=== PATIENT | male | born 1955 | race American Indian/Alaskan Native ===

== ENCOUNTER 2020-02-04 13:06 | Inpatient (IN) ==
[2020-02-04] MEDS ORDERED: IOPAMIDOL 100 ML BOTTLE IV ONE (13:07)
[2020-02-04] MEDS ORDERED: ASPIRIN 81 MG TAB.CHEW CHEWED ONE (13:14)
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
[2020-02-04 13:32] LABS: POC Creatinine 1.1 mg/dL (0.6-1.2)
[2020-02-04] MEDS ORDERED: DEXAMETHASONE 10 MG/ML VIAL IV ONE (13:38)
--- NOTE | 2020-02-04 14:36 | Cat Scan Report ---
CLINICAL INFORMATION: Shortness of breath COMPARISON: 07/24/2019 TECHNIQUE: ml of Isovue-370 were injected intravenously. Using SmartPrep to maximize pulmonary artery opacification, .625mm helical slices were obtained from the lung apices through the lung bases. Following reconstruction, 2.5 mm sagittal, coronal, and axial reformations were processed. The exam was reviewed at mediastinal, lung, and bone windows. The exam was performed using radiation dose optimization techniques including, but not limited to, automated exposure control, adjustment of the mA and/or kV according to patient size and use of iterative reconstruction technique. FINDINGS: Mediastinal windows show suboptimal contrast bolus within the pulmonary arteries no gross evidence of embolus. Thoracic aorta is normal in diameter with scattered atherosclerotic plaque. The heart is normal in size with moderately heavy fibrofatty calcific plaque in the coronary arteries. Mildly enlarged lymph nodes in the right hilum, subcarinal AP window and right lower paratracheal region are identical to the previous exam. The esophagus is grossly normal. Thyroid is unremarkable. Pulmonary parenchymal windows show large patchy groundglass infiltrates generally in a peribronchovascular distribution throughout both upper, right middle and lower lobes. There are no effusions. Bones and soft tissues the chest wall are normal. Superior abdominal images show a 2 cm simple cyst left hepatic lobe. No significant abnormality in the upper abdomen IMPRESSION: 1. Large patchy groundglass infiltrates in a peribronchovascular distribution throughout both upper, right middle and lower lobes. These likely represent infection or, less likely, aspiration 2. No evidence of pulmonary embolus. Interpreted and Authenticated by: Pato Santiago 02/04/20
[2020-02-04 14:41] LABS: ABG Methemoglobin 0.3 % (0.4-1.5); Total Hemoglobin 13.6 gm/Dl (13.5-16.5); VBG Base Excess -1 (-2-3); VBG HCO3 23.2 mmol/L (24.0-28.0); VBG Oxygen Saturation 89.2 % (40.0-70.0); VBG PH 7.42 U (7.32-7.42); VBG PO2 70.6 mmHg (25.0-40.0); VBG Total CO2 24.4 mmol/L (25.0-29.0)
[2020-02-04 14:43] LABS: Basophils # (Auto) 0.01 K/mcL (0.00-0.20); Basophils % (Auto) 0.2 % (0.0-2.0); Eosinophils # (Auto) 0 K/mcL (0.00-0.70); Eosinophils % (Auto) 0 % (0.0-7.0); Hematocrit 43.2 % (41.0-55.0); Hemoglobin 14.7 g/dL (13.5-16.5); Lymphocytes # (Auto) 0.78 K/mcL (1.50-4.80); Lymphocytes % (Auto) 15.6 % (15.0-49.0); Mean Cell Volume 81.8 fL (80.0-100.0); Mean Platelet Volume 9.3 fL (7.4-10.4); Monocytes # (Auto) 0.28 K/mcL (0.10-0.90); Monocytes % (Auto) 5.6 % (1.0-12.0); Neutrophils % (Auto) 78.6 % (38.0-78.0); Platelet Count 222 K/mcL (140-440); RBC 5.28 M/mcL (4.50-5.90); Red Cell Distribution Width 13.5 % (11.5-14.5)
[2020-02-04 15:07] LABS: ALT/SGPT 24 U/L (<40); AST/SGOT 37 U/L (<40); Albumin/Globulin Ratio 1.2 (1.0-2.3); Alkaline Phosphatase 59 U/L (39-117); Bilirubin,Total 0.6 mg/dL (0.1-1.0); Blood Urea Nitrogen 11 mg/dL (8-23); Calcium 8.4 mg/dL (8.6-10.4); Carbon Dioxide 22 mmol/L (22-30); Chloride 94 mmol/L (96-108); Globulin 3.3 gm/dL (2.2-3.7); Glomerular Filtration Rate 63; Glucose 108 mg/dL (70-105)
[2020-02-04] MEDS ORDERED: ACETAMINOPHEN 325 MG TABLET PO ONE (15:56)
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
[2020-02-04] MEDS ORDERED: REMDESIVIR 200 MG in 0.9 % SODIUM CHLORIDE 250 ML IV ONE (17:24)
[2020-02-04 17:28] LABS: Creatine Kinase 290 U/L (24-195)
[2020-02-04 17:41] LABS: Ferritin 486.3 ng/mL (30.0-400.0)
[2020-02-04 17:57] LABS: Band Neutrophils % 4 % (0-10); Lymphocytes % 16 % (15-49); Monocytes % (Manual) 2 % (1-12); Platelet Estimate NORMAL (Normal); RBC Morphology NORMAL (Normal); Segmented Neutrophils % 78 % (38-78)
[2020-02-04] MEDS ORDERED: DEXTROSE 50% 50 ML VIAL IV PRN (20:17)
[2020-02-04] MEDS ORDERED: ACETAMINOPHEN 325 MG TABLET PO PRN (20:17)
[2020-02-04] MEDS ORDERED: POTASSIUM CHLORIDE 20 MEQ TABLET PO PRN ×2 (20:17)
[2020-02-04] MEDS ORDERED: HYDROcodone/APAP 5/325MG TABLET PO PRN (20:17)
[2020-02-04] MEDS ORDERED: ONDANSETRON 4 MG/2 ML VIAL IV PRN (20:17)
[2020-02-04] MEDS ORDERED: SENNOSIDES 1 TABLET PO PRN (20:17)
[2020-02-04] MEDS ORDERED: POTASSIUM CHLORIDE 40 MEQ in DEXTROSE 5% IN WATER 500 ML IV PRN (20:17)
[2020-02-04] MEDS ORDERED: MAGNESIUM SULFATE 2 GM/50 ML BAG IV PRN (20:17)
[2020-02-04] MEDS ORDERED: DEXTROSE 31 GM ORAL.SUSP PO PRN (20:17)
[2020-02-04] MEDS ORDERED: cefTRIAXone 2 GM VIAL ONE (21:50)
[2020-02-04] MEDS: AZITHROMYCIN 500 MG in DEXTROSE 5% IN WATER 250 ML IV SCH (22:18)
[2020-02-04] MEDS: INSULIN LISPRO 1 UNIT/0.01 ML UNIT SQ SCH (22:19)
[2020-02-04] MEDS: ZINC SULFATE 50 MG CAPSULE PO SCH (22:20)
[2020-02-04] MEDS: DOCUSATE SODIUM 100 MG CAPSULE PO SCH (22:20)
[2020-02-04] MEDS: TAMSULOSIN 0.4 MG CAPSULE PO SCH (22:20)
[2020-02-04] MEDS: OMEPRAZOLE 20 MG CAPSULE PO SCH (22:20)
[2020-02-04] MEDS: cefTRIAXone 2 GM in DEXTROSE 5% IN WATER 50 ML IV SCH (22:21)
[2020-02-04] MEDS: 0.9 % SODIUM CHLORIDE 10 ML SYRINGE IV SCH (22:21)
[2020-02-05] MEDS: 0.9 % SODIUM CHLORIDE 10 ML SYRINGE IV SCH ×3 (05:26→20:03)
[2020-02-05 06:30] LABS: Basophils # (Auto) 0 K/mcL (0.00-0.20); Basophils % (Auto) 0 % (0.0-2.0); Eosinophils # (Auto) 0 K/mcL (0.00-0.70); Eosinophils % (Auto) 0 % (0.0-7.0); Hematocrit 40.8 % (41.0-55.0); Hemoglobin 13.9 g/dL (13.5-16.5); Lymphocytes # (Auto) 0.39 K/mcL (1.50-4.80); Lymphocytes % (Auto) 14.5 % (15.0-49.0); Mean Cell Volume 81.3 fL (80.0-100.0); Mean Corpuscular HGB Conc 34.1 g/dL (31.0-36.0); Mean Platelet Volume 9.2 fL (7.4-10.4); Monocytes # (Auto) 0.19 K/mcL (0.10-0.90); Monocytes % (Auto) 7.1 % (1.0-12.0); Neutrophils % (Auto) 78.4 % (38.0-78.0); Platelet Count 225 K/mcL (140-440); RBC 5.02 M/mcL (4.50-5.90); Red Cell Distribution Width 13.2 % (11.5-14.5); WBC 2.7 K/mcL (4.5-11.0)
[2020-02-05 07:16] LABS: ALT/SGPT 22 U/L (<40); AST/SGOT 32 U/L (<40); Albumin 3.6 gm/dL (3.2-5.2); Albumin/Globulin Ratio 1.1 (1.0-2.3); Alkaline Phosphatase 58 U/L (39-117); Bilirubin,Direct < 0.2 mg/dL (<0.3); Bilirubin,Total 0.5 mg/dL (0.1-1.0); Blood Urea Nitrogen 11 mg/dL (8-23); Calcium 8.5 mg/dL (8.6-10.4); Carbon Dioxide 20 mmol/L (22-30); Chloride 100 mmol/L (96-108); Globulin 3.4 gm/dL (2.2-3.7); Glomerular Filtration Rate 90; Glucose 151 mg/dL (70-105); Lactate Dehydrogenase 230 U/L (135-225); Phosphorous 2.6 mg/dL (2.5-4.5); Triglycerides 54 mg/dL (<150); Uric Acid 5.7 mg/dL (2.5-8.0)
[2020-02-05 07:20] LABS: Estimated Average Glucose(eAG) 131 mg/dL; Hemoglobin A1C 6.2 % Hgb (4.0-6.0)
--- NOTE | 2020-02-05 07:20 | Internal Med Progress Note ---
SUBJECTIVE Subjective Patient information: Note initiated : 02/05/20 at 7:16 am Service Date, if different from initiated Date: [] Patient: Hakeem Smart 64 y/o M admitted on 02/04/20 for shortness of breath. Chief Complaint: [] Interval history: History of present illness: Mr. Smart is a 64 year old M Presents to the ED feeling sick for 1 week with fever chills body aches. In about 3 days ago start developing shortness of breath which is continue to worsen. His tested positive yesterday because she had similar symptoms so he went to his PCP tested in the office today which showed positive for Covid. He is on 2 L of oxygen chronically. He got pneumonia beginning of the year and has been on it since. Follows Dr. Benítez for interstitial lung disease as well as bronchiectasis In the ED he required 3 L of oxygen. He has pleuritic chest pain. He has occasional productive cough which is mostly chronic CTA was done which showed no PE but did show bilateral groundglass infiltrates. 02/04 Poor sleep last night. Has occasional cough. Has shortness of breath, his chest is less tight. 3 L of oxygen Review of Systems: denies headache/fever/chills/nausea/vomiting/chest or abdominal pain//diarrhea. Otherwise see above. Constitutional Vitals: Vital Signs Temp Pulse Resp BP Pulse Ox 97.5 F 72 20 130/86 93 02/05/20 04:00 02/05/20 04:56 02/05/20 04:00 02/05/20 04:56 02/05/20 04:56 Period Temp Pulse Resp BP Sys/Estes Pulse Ox Last 24 Hr 97.0 F-101.1 F 67-111 14-32 108-158/63-102 89-97 Intake and Output 02/04/20 02/05/20 02/05/20 21:59 05:59 13:59 Intake Total 250 650 Output Total 600 Balance 250 50 Weight 118.115 kg Intake & Output: Intake & Output 02/04/20 02/05/20 02/05/20 21:59 05:59 13:59 Intake Total 250 650 Output Total 600 Balance 250 50 Weight 118.115 kg Intake: IV 250 250 Zithromax 500 mg In Dextrose 5% 250 in Water 250 ml @ 250 mls/hr IV Q24H LUIS MIGUEL Rx#:[id number] Veklury 200 mg In Sodium 250 Chloride 0.9% 250 ml @ 500 mls/ hr IV ONCE ONE Rx#:[id number] Oral 400 Output: Void Amount 600 Other: Urine Appearance Clear Urine Color Bright Yellow # Bowel Movements 0 Exam: General: Alert, Awake, No acute Distress Eyes/N/T: EOMI, Head/Neck: neck supple, CV: RRR, No murmurs, Pulm: diminished b/l & fines rales, no wheezing Abd: soft, nontender, +BS x4 Ext: no clubbing/cyanosis/edema Neuro: Alert, no focal deficits, moves all extremities, Skin: warm/dry OBJ DATA Labs CBC & Chem 7: 02/05/20 05:03 02/05/20 05:03 Labs: Abnormal Lab Results 02/05/20 02/04/20 02/04/20 05:03 14:14 13:20 WBC 2.7 L Hct 40.8 L Neut % (Auto) 78.4 H Lymph % (Auto) 14.5 L Lymph # (Auto) 0.39 L ABG Methemoglobin 0.3 L VBG pCO2 37.0 L VBG pO2 70.6 H VBG HCO3 23.2 L VBG Total CO2 24.4 L VBG O2 Saturation 89.2 H VBG Lactic Acid Carboxyhemoglobin 5.7 H Sodium Chloride Glucose Calcium Ferritin Total Creatine Kinase 290 H C-Reactive Protein 02/04/20 02/04/20 02/04/20 13:20 13:20 13:20 WBC Hct Neut % (Auto) Lymph % (Auto) Lymph # (Auto) ABG Methemoglobin VBG pCO2 VBG pO2 VBG HCO3 VBG Total CO2 VBG O2 Saturation VBG Lactic Acid 2.8 H Carboxyhemoglobin Sodium 131 L Chloride 94 L Glucose 108 H Calcium 8.4 L Ferritin 486.3 H Total Creatine Kinase C-Reactive Protein 8.90 H 02/04/20 13:20 WBC Hct Neut % (Auto) 78.6 H Lymph % (Auto) Lymph # (Auto) 0.78 L ABG Methemoglobin VBG pCO2 VBG pO2 VBG HCO3 VBG Total CO2 VBG O2 Saturation VBG Lactic Acid Carboxyhemoglobin Sodium Chloride Glucose Calcium Ferritin Total Creatine Kinase C-Reactive Protein Meds: Medications Acetaminophen (Tylenol) 650 mg PO Q6HP PRN PRN Reason: PAIN/FEVER > 101 Hydrocodone Bitart/Acetaminophen (Wiley 5/325mg) 1 tab PO Q4HP PRN PRN Reason: PAIN LEVEL 3-6 Albuterol/Ipratropium (Duoneb) 3 ml NEB Q4HP PRN PRN Reason: Shortness Of Breath Dexamethasone (Decadron) 6 mg PO DAILY LUIS MIGUEL Dextrose (Dextrose 50%) 0 ml IV UD PRN PRN Reason: Hypoglycemia Diagnostic Test (Pha) (Accu-Chek) 1 each FS ACHS [facility] Last Admin: 02/04/20 22:19 Dose: 1 each Documented by: Docusate Sodium (Colace) 100 mg PO BID [facility] Last Admin: 02/04/20 22:20 Dose: 100 mg Documented by: Glucose (Insta-Glucose) 15 gm PO PRN PRN PRN Reason: Hypoglycemia Potassium Chloride 40 meq/ (Dextrose) 520 mls @ 130 mls/hr IV UD PRN PRN Reason: Potassium < 3 Magnesium Sulfate (Magnesium Sulfate) 2 gm in 50 mls @ 50 mls/hr IV UD PRN PRN Reason: Magnesium </= 1.6 Ceftriaxone Sodium 2 gm/ (Dextrose) 50 mls @ 100 mls/hr IV Q24H [facility]; Protocol Last Admin: 02/04/20 22:21 Dose: Not Given Documented by: Azithromycin 500 mg/ Dextrose 250 mls @ 250 mls/hr IV Q24H [facility]; Protocol Stop: 02/06/20 21:16 Last Infusion: 02/04/20 23:20 Dose: Infused Documented by: REMDESIVIR 100 mg/ Sodium (Chloride) 250 mls @ 500 mls/hr IV Q24H [facility] Stop: 02/08/20 14:29 Insulin Human Lispro (Humalog) 0 unit SQ [facility]; Protocol Last Admin: 02/04/20 22:19 Dose: 4 units Documented by: Omeprazole (Prilosec) 20 mg PO HS [facility] Last Admin: 02/04/20 22:20 Dose: 20 mg Documented by: Ondansetron HCl (Zofran) 4 mg IV Q4HP PRN PRN Reason: Nausea And Vomiting Polyethylene Glycol (Miralax) 17 gm PO DAILYP PRN PRN Reason: Constipation Potassium Chloride (Kdur) 40 meq PO UD PRN PRN Reason: Potssium is 3-3.5 Potassium Chloride (Kdur) 40 meq PO UD PRN PRN Reason: Potassium < 3 Rivaroxaban (Xarelto) 10 mg PO QDAY [facility] Senna (Senokot) 2 tab PO DAILYP PRN PRN Reason: Constipation Sodium Chloride (Saline Flush) 10 ml IV Q8 [facility] Last Admin: 02/05/20 05:26 Dose: 10 ml Documented by: Tamsulosin HCl (Flomax) 0.4 mg PO BID [facility] Last Admin: 02/04/20 22:20 Dose: 0.4 mg Documented by: Zinc Sulfate (Zinc) 50 mg PO DAILY [facility] Last Admin: 02/04/20 22:20 Dose: 50 mg Documented by: ABG Interpretation ABG results: 02/04/20 14:14 ABG Methemoglobin 0.3 L VBG pH 7.42 VBG pCO2 37.0 L VBG pO2 70.6 H VBG HCO3 23.2 L VBG Total CO2 24.4 L VBG O2 Saturation 89.2 H VBG Base Excess -1 A/P Narrative A/P Narrative: A: *COVID PNA superimposed on underlying ILD: -CTA no PE but b/l groundglass infiltrates -RVP/Myco/Strep neg *Acute on chronic hypoxic Respiratory failure (2L@home): -on 3L NC *Lactic acidosis: 2/2 hypoxia *ILD: Follows with Dr. Benítez *COPD/bronchiectasis (on 2L@home): Follows with Dr. Benítez *DAMARIS on CPAP: *DM: A1c 6.2 *h/o diastolic CHF: *Obesity: *Rheumatoid arthritis/fibromyalgia: Follows with Dr. Carlos *h/o DVT/PE: [place] *Hyponatremia: P: -Dexa/Remdesivir -empiric abx given his significant comorbidities and being on immunosuppressant -pending SC -IS/Acapella, -O2 support -cpap -Basal and SSI -hold Tofacitinib until infection resolved -pt/ot -ppx:Xaralto/home PPI Time Spent With Patient Time: Total time spent is greater than 50% in coordination of care (as documented) at patient's floor/unit and/or counseling patient:
[2020-02-05] MEDS: INSULIN LISPRO 1 UNIT/0.01 ML UNIT SQ SCH ×4 (07:58→20:23)
[2020-02-05] MEDS: DEXAMETHASONE 4 MG TABLET PO SCH (08:21)
[2020-02-05] MEDS: cefTRIAXone 2 GM in DEXTROSE 5% IN WATER 50 ML IV SCH (08:21)
[2020-02-05] MEDS: RIVAROXABAN 20 MG TABLET PO SCH (08:21)
[2020-02-05] MEDS: SODIUM CHLORIDE 1 GM TABLET PO SCH ×3 (08:21→20:23)
[2020-02-05] MEDS: DOCUSATE SODIUM 100 MG CAPSULE PO SCH ×2 (08:21→20:23)
[2020-02-05] MEDS: ZINC SULFATE 50 MG CAPSULE PO SCH (08:21)
[2020-02-05] MEDS: TAMSULOSIN 0.4 MG CAPSULE PO SCH ×2 (08:21→20:23)
[2020-02-05] MEDS ORDERED: FUROSEMIDE 20 MG/2 ML VIAL IV ONE (08:43)
[2020-02-05] MEDS: AZITHROMYCIN 500 MG in DEXTROSE 5% IN WATER 250 ML IV SCH (09:09)
[2020-02-05] MEDS: IPRATROPIUM/ALBUTEROL 3 ML AMPUL.NEB NEB PRN (09:26)
[2020-02-05 10:01] LABS: INR 1.1 (0.9-1.1); Prothrombin Time 14.2 sec (11.9-14.5)
[2020-02-05] MEDS: REMDESIVIR 100 MG in 0.9 % SODIUM CHLORIDE 250 ML IV SCH (13:40)
[2020-02-05] MEDS: POLYETHYLENE GLYCOL 3350 17 GM PACKET PO PRN (17:21)
[2020-02-05] MEDS: MELATONIN 3 MG TABLET PO SCH (20:23)
[2020-02-05] MEDS: OMEPRAZOLE 20 MG CAPSULE PO SCH (20:23)
[2020-02-05] MEDS: diphenhydrAMINE 25 MG CAPSULE PO PRN (20:23)
[2020-02-06] MEDS: 0.9 % SODIUM CHLORIDE 10 ML SYRINGE IV SCH ×3 (05:15→20:56)
[2020-02-06 06:37] LABS: Basophils # (Auto) 0.01 K/mcL (0.00-0.20); Basophils % (Auto) 0.1 % (0.0-2.0); Eosinophils # (Auto) 0 K/mcL (0.00-0.70); Eosinophils % (Auto) 0 % (0.0-7.0); Hematocrit 42.9 % (41.0-55.0); Hemoglobin 14.4 g/dL (13.5-16.5); Lymphocytes # (Auto) 0.53 K/mcL (1.50-4.80); Lymphocytes % (Auto) 5.4 % (15.0-49.0); Mean Cell Volume 82.8 fL (80.0-100.0); Mean Corpuscular HGB Conc 33.6 g/dL (31.0-36.0); Mean Platelet Volume 9.1 fL (7.4-10.4); Monocytes # (Auto) 0.55 K/mcL (0.10-0.90); Monocytes % (Auto) 5.6 % (1.0-12.0); Neutrophils % (Auto) 88.9 % (38.0-78.0); Platelet Count 275 K/mcL (140-440); RBC 5.18 M/mcL (4.50-5.90); Red Cell Distribution Width 13.4 % (11.5-14.5); WBC 9.8 K/mcL (4.5-11.0)
[2020-02-06 07:21] LABS: ALT/SGPT 24 U/L (<40); AST/SGOT 33 U/L (<40); Albumin 3.5 gm/dL (3.2-5.2); Albumin/Globulin Ratio 1.1 (1.0-2.3); Alkaline Phosphatase 53 U/L (39-117); Bilirubin,Direct < 0.2 mg/dL (<0.3); Bilirubin,Total 0.4 mg/dL (0.1-1.0); Blood Urea Nitrogen 13 mg/dL (8-23); Calcium 8.4 mg/dL (8.6-10.4); Carbon Dioxide 23 mmol/L (22-30); Chloride 102 mmol/L (96-108); Globulin 3.3 gm/dL (2.2-3.7); Glomerular Filtration Rate 94; Glucose 130 mg/dL (70-105); Lactate Dehydrogenase 230 U/L (135-225); Phosphorous 3.2 mg/dL (2.5-4.5); Triglycerides 52 mg/dL (<150); Uric Acid 5.4 mg/dL (2.5-8.0)
--- NOTE | 2020-02-06 08:10 | Internal Med Progress Note ---
SUBJECTIVE Subjective Patient information: Note initiated : 02/06/20 at 8:07 am Service Date, if different from initiated Date: [] Patient: Hakeem Smart 64 y/o M admitted on 02/04/20 for shortness of breath. Chief Complaint: [] Interval history: History of present illness: Mr. Smart is a 64 year old M Presents to the ED feeling sick for 1 week with fever chills body aches. In about 3 days ago start developing shortness of breath which is continue to worsen. His tested positive yesterday because she had similar symptoms so he went to his PCP tested in the office today which showed positive for Covid. He is on 2 L of oxygen chronically. He got pneumonia beginning of the year and has been on it since. Follows Dr. Benítez for interstitial lung disease as well as bronchiectasis In the ED he required 3 L of oxygen. He has pleuritic chest pain. He has occasional productive cough which is mostly chronic CTA was done which showed no PE but did show bilateral groundglass infiltrates. 02/04 Poor sleep last night. Has occasional cough. Has shortness of breath, his chest is less tight. 3 L of oxygen 02/05 Patient quite labored when he gets up to the bathroom and even when he was eating. Oxygen at 3 L on his sitting in chair resting but needs increased when he exerts himself. Minimal cough. Shortness of breath wax and wanes. Review of Systems: denies headache/fever/chills/nausea/vomiting/chest or abdominal pain//diarrhea. Otherwise see above. Constitutional Vitals: Vital Signs Temp Pulse Resp BP Pulse Ox 96.6 F L 75 20 134/96 92 02/06/20 03:55 02/06/20 03:55 02/06/20 03:55 02/06/20 03:55 02/06/20 03:55 Period Temp Pulse Resp BP Sys/Estes Pulse Ox Last 24 Hr 96.6 F-97.9 F 68-76 16-24 134-144/85-96 92-97 Intake and Output 02/05/20 02/06/20 02/06/20 21:59 05:59 13:59 Intake Total 970 800 Output Total 650 950 Balance 320 -150 Weight 120.066 kg Intake & Output: Intake & Output 11/02/06/20 02/06/20 21:59 05:59 13:59 Intake Total 970 800 Output Total 650 950 Balance 320 -150 Weight 120.066 kg Intake: IV 250 Veklury 100 mg In Sodium 250 Chloride 0.9% 250 ml @ 500 mls/ hr IV Q24H [facility] Rx#:[id number] Oral 720 800 Output: Void Amount 650 950 Other: Meal Dinner Percent of Meal Consumed 100% Feeding Ability Independent Urine Appearance Clear Clear Urine Color Bright Yellow Bright Yellow Stool Size Small Stool Consistency Soft Exam: General: Alert, Awake, No acute Distress Eyes/N/T: EOMI, Head/Neck: neck supple, CV: RRR, No murmurs, Pulm: diminished b/l & fines rales, no wheezing Abd: soft, nontender, +BS x4 Ext: no clubbing/cyanosis, mild b/l LE edema Neuro: Alert, no focal deficits, moves all extremities, Skin: warm/dry OBJ DATA Labs CBC & Chem 7: 02/06/20 05:18 02/06/20 05:18 Labs: Abnormal Lab Results 02/06/20 02/06/20 02/06/20 05:18 05:18 05:18 WBC Hct Neut % (Auto) Lymph % (Auto) Lymph # (Auto) Absolute Neutrophils ABG Methemoglobin VBG pCO2 VBG pO2 VBG HCO3 VBG Total CO2 VBG O2 Saturation VBG Lactic Acid Carboxyhemoglobin Sodium Chloride Carbon Dioxide Glucose 130 H Hemoglobin A1c Calcium 8.4 L Ferritin 648.4 H Lactate Dehydrogenase 230 H Total Creatine Kinase 468 H C-Reactive Protein 3.40 H 02/06/20 02/05/20 02/05/20 05:18 05:03 05:03 WBC 2.7 L Hct 40.8 L Neut % (Auto) 88.9 H 78.4 H Lymph % (Auto) 5.4 L 14.5 L Lymph # (Auto) 0.53 L 0.39 L Absolute Neutrophils 8.73 H ABG Methemoglobin VBG pCO2 VBG pO2 VBG HCO3 VBG Total CO2 VBG O2 Saturation VBG Lactic Acid Carboxyhemoglobin Sodium 132 L Chloride Carbon Dioxide 20 L Glucose 151 H Hemoglobin A1c 6.2 H Calcium 8.5 L Ferritin Lactate Dehydrogenase 230 H Total Creatine Kinase C-Reactive Protein 02/04/20 02/04/20 02/04/20 14:14 13:20 13:20 WBC Hct Neut % (Auto) Lymph % (Auto) Lymph # (Auto) Absolute Neutrophils ABG Methemoglobin 0.3 L VBG pCO2 37.0 L VBG pO2 70.6 H VBG HCO3 23.2 L VBG Total CO2 24.4 L VBG O2 Saturation 89.2 H VBG Lactic Acid Carboxyhemoglobin 5.7 H Sodium Chloride Carbon Dioxide Glucose Hemoglobin A1c Calcium Ferritin 486.3 H Lactate Dehydrogenase Total Creatine Kinase 290 H C-Reactive Protein 8.90 H 02/04/20 02/04/20 02/04/20 13:20 13:20 13:20 WBC Hct Neut % (Auto) 78.6 H Lymph % (Auto) Lymph # (Auto) 0.78 L Absolute Neutrophils ABG Methemoglobin VBG pCO2 VBG pO2 VBG HCO3 VBG Total CO2 VBG O2 Saturation VBG Lactic Acid 2.8 H Carboxyhemoglobin Sodium 131 L Chloride 94 L Carbon Dioxide Glucose 108 H Hemoglobin A1c Calcium 8.4 L Ferritin Lactate Dehydrogenase Total Creatine Kinase C-Reactive Protein Meds: Medications Acetaminophen (Tylenol) 650 mg PO Q6HP PRN PRN Reason: PAIN/FEVER > 101 Hydrocodone Bitart/Acetaminophen ([place] 5/325mg) 1 tab PO Q4HP PRN PRN Reason: PAIN LEVEL 3-6 Albuterol/Ipratropium (Duoneb) 3 ml NEB Q4HP PRN PRN Reason: Shortness Of Breath Last Admin: 02/05/20 09:26 Dose: 3 ml Documented by: Dexamethasone (Decadron) 6 mg PO DAILY [facility] Last Admin: 02/05/20 08:21 Dose: 6 mg Documented by: Dextrose (Dextrose 50%) 0 ml IV UD PRN PRN Reason: Hypoglycemia Diagnostic Test (Pha) (Accu-Chek) 1 each FS ACHS [facility] Last Admin: 02/05/20 20:03 Dose: 1 each Documented by: Diphenhydramine HCl (Benadryl) 25 mg PO HSP PRN PRN Reason: Insomnia Last Admin: 02/05/20 20:23 Dose: 25 mg Documented by: Docusate Sodium (Colace) 100 mg PO BID [facility] Last Admin: 02/05/20 20:23 Dose: 100 mg Documented by: Glucose (Insta-Glucose) 15 gm PO PRN PRN PRN Reason: Hypoglycemia Potassium Chloride 40 meq/ (Dextrose) 520 mls @ 130 mls/hr IV UD PRN PRN Reason: Potassium < 3 Magnesium Sulfate (Magnesium Sulfate) 2 gm in 50 mls @ 50 mls/hr IV UD PRN PRN Reason: Magnesium </= 1.6 Ceftriaxone Sodium 2 gm/ (Dextrose) 50 mls @ 100 mls/hr IV Q24H [facility]; Protocol Last Infusion: 02/05/20 09:09 Dose: Infused Documented by: Azithromycin 500 mg/ Dextrose 250 mls @ 250 mls/hr IV Q24H [facility]; Protocol Stop: 02/06/20 21:16 Last Infusion: 02/05/20 10:22 Dose: Infused Documented by: REMDESIVIR 100 mg/ Sodium (Chloride) 250 mls @ 500 mls/hr IV Q24H [facility] Stop: 02/08/20 14:29 Last Infusion: 02/05/20 14:10 Dose: Infused Documented by: Insulin Human Lispro (Humalog) 0 unit SQ ACHS [facility]; Protocol Last Admin: 02/05/20 20:23 Dose: 6 units Documented by: Melatonin (Melatonin 3mg Tablet) 3 mg PO QHS [facility] Last Admin: 02/05/20 20:23 Dose: 3 mg Documented by: Omeprazole (Prilosec) 20 mg PO HS [facility] Last Admin: 02/05/20 20:23 Dose: 20 mg Documented by: Ondansetron HCl (Zofran) 4 mg IV Q4HP PRN PRN Reason: Nausea And Vomiting Pneumococcal Polyvalent Vaccine (Pneumovax 23) 0.5 ml IM .ONCE ONE Stop: 02/06/20 10:01 Polyethylene Glycol (Miralax) 17 gm PO DAILYP PRN PRN Reason: Constipation Last Admin: 02/05/20 17:21 Dose: 17 gm Documented by: Potassium Chloride (Kdur) 40 meq PO UD PRN PRN Reason: Potssium is 3-3.5 Potassium Chloride (Kdur) 40 meq PO UD PRN PRN Reason: Potassium < 3 Rivaroxaban (Xarelto) 10 mg PO QDAY [facility] Last Admin: 02/05/20 08:21 Dose: 10 mg Documented by: Senna (Senokot) 2 tab PO DAILYP PRN PRN Reason: Constipation Sodium Chloride (Saline Flush) 10 ml IV Q8 [facility] Last Admin: 02/06/20 05:15 Dose: 10 ml Documented by: Tamsulosin HCl (Flomax) 0.4 mg PO BID [facility] Last Admin: 02/05/20 20:23 Dose: 0.4 mg Documented by: Zinc Sulfate (Zinc) 50 mg PO DAILY [facility] Last Admin: 02/05/20 08:21 Dose: 50 mg Documented by: ABG Interpretation ABG results: 02/04/20 14:14 ABG Methemoglobin 0.3 L VBG pH 7.42 VBG pCO2 37.0 L VBG pO2 70.6 H VBG HCO3 23.2 L VBG Total CO2 24.4 L VBG O2 Saturation 89.2 H VBG Base Excess -1 A/P Narrative A/P Narrative: A: *COVID PNA superimposed on underlying ILD: -CTA no PE but b/l groundglass infiltrates -RVP/Myco/Strep neg, SC neg *Acute on chronic hypoxic Respiratory failure (2L@home): -on 3L [place] *Lactic acidosis: 2/2 hypoxia *ILD: Follows with Dr. Benítez *COPD/bronchiectasis (on 2L@home): Follows with Dr. Benítez *DAMARIS on CPAP: *DM: A1c 6.2 *h/o diastolic CHF: *Obesity: *Rheumatoid arthritis/fibromyalgia: Follows with Dr. Carlos *h/o DVT/PE: [place] *Hyponatremia: Improved P: -Dexa/Remdesivir -empiric abx given his significant comorbidities and being on immunosuppressant -IS/Acapella, -O2 support -cpap -Basal and SSI -hold Tofacitinib until infection resolved -pt/ot -ppx:Xaralto/home PPI Time Spent With Patient Time: Total time spent is greater than 50% in coordination of care (as documented) at patient's floor/unit and/or counseling patient:
[2020-02-06] MEDS: INSULIN LISPRO 1 UNIT/0.01 ML UNIT SQ SCH ×4 (08:38→20:40)
[2020-02-06] MEDS: DOCUSATE SODIUM 100 MG CAPSULE PO SCH ×2 (08:39→20:37)
[2020-02-06] MEDS: TAMSULOSIN 0.4 MG CAPSULE PO SCH ×2 (08:39→20:37)
[2020-02-06] MEDS: RIVAROXABAN 20 MG TABLET PO SCH (08:39)
[2020-02-06] MEDS: DEXAMETHASONE 4 MG TABLET PO SCH (08:39)
[2020-02-06] MEDS: ZINC SULFATE 50 MG CAPSULE PO SCH (08:39)
[2020-02-06] MEDS: cefTRIAXone 2 GM in DEXTROSE 5% IN WATER 50 ML IV SCH (08:40)
[2020-02-06] MEDS: AZITHROMYCIN 500 MG in DEXTROSE 5% IN WATER 250 ML IV SCH (09:25)
[2020-02-06] MEDS ORDERED: PNEUMOCOCCAL 23-VAL P-SAC VAC 0.5 ML SYRINGE IM ONE (10:00)
[2020-02-06] MEDS ORDERED: FUROSEMIDE 40 MG/4 ML VIAL IV ONE (10:08)
[2020-02-06] MEDS: POLYETHYLENE GLYCOL 3350 17 GM PACKET PO PRN (10:38)
[2020-02-06] MEDS: REMDESIVIR 100 MG in 0.9 % SODIUM CHLORIDE 250 ML IV SCH (13:33)
[2020-02-06] MEDS: diphenhydrAMINE 25 MG CAPSULE PO PRN (20:37)
[2020-02-06] MEDS: MELATONIN 3 MG TABLET PO SCH (20:38)
[2020-02-06] MEDS: OMEPRAZOLE 20 MG CAPSULE PO SCH (20:56)
[2020-02-07] MEDS: 0.9 % SODIUM CHLORIDE 10 ML SYRINGE IV SCH ×4 (03:52→20:41)
[2020-02-07 07:34] LABS: Blood Urea Nitrogen 16 mg/dL (8-23); Calcium 8.3 mg/dL (8.6-10.4); Carbon Dioxide 25 mmol/L (22-30); Chloride 99 mmol/L (96-108); Glomerular Filtration Rate 90; Glucose 115 mg/dL (70-105)
[2020-02-07 07:35] LABS: C-Reactive Protein 2.2 mg/dL (0.03-0.80)
[2020-02-07] MEDS ORDERED: LORazepam 2 MG/ML VIAL IV PRN ×2 (07:35→13:14)
--- NOTE | 2020-02-07 07:36 | Internal Med Progress Note ---
SUBJECTIVE Subjective Patient information: Note initiated : 02/07/20 at 7:33 am Service Date, if different from initiated Date: [] Patient: Hakeem Smart 64 y/o M admitted on 02/04/20 for shortness of breath. Chief Complaint: [] Interval history: History of present illness: Mr. Smart is a 64 year old M Presents to the ED feeling sick for 1 week with fever chills body aches. In about 3 days ago start developing shortness of breath which is continue to worsen. His tested positive yesterday because she had similar symptoms so he went to his PCP tested in the office today which showed positive for Covid. He is on 2 L of oxygen chronically. He got pneumonia beginning of the year and has been on it since. Follows Dr. Benítez for interstitial lung disease as well as bronchiectasis In the ED he required 3 L of oxygen. He has pleuritic chest pain. He has occasional productive cough which is mostly chronic CTA was done which showed no PE but did show bilateral groundglass infiltrates. 02/04 Poor sleep last night. Has occasional cough. Has shortness of breath, his chest is less tight. 3 L of oxygen 02/05 Patient quite labored when he gets up to the bathroom and even when he was eating. Oxygen at 3 L on his sitting in chair resting but needs increased when he exerts himself. Minimal cough. Shortness of breath wax and wanes. 02/06 Patient had episode last night where he became hypoxic and coughing quite a bit. Eventually calm down fell asleep feels better this morning. Has no reserve when he starts to cough for exert himself. Inflammatory markers improving. Review of Systems: denies headache/fever/chills/nausea/vomiting/chest or abdominal pain//diarrhea. Otherwise see above. Constitutional Vitals: Vital Signs Temp Pulse Resp BP Pulse Ox 96.7 F L 58 L 17 151/90 96 02/07/20 03:48 02/07/20 03:48 02/07/20 03:48 02/07/20 03:48 02/07/20 03:48 Period Temp Pulse Resp BP Sys/Estes Pulse Ox Last 24 Hr 96.7 F-98.5 F 57-84 16-24 130-151/69-98 89-98 Intake and Output 02/06/20 02/07/20 02/07/20 21:59 05:59 13:59 Intake Total 1290 400 Output Total 200 200 Balance 1090 200 Weight 119.794 kg Intake & Output: Intake & Output 02/06/20 02/07/20 02/07/20 21:59 05:59 13:59 Intake Total 1290 400 Output Total 200 200 Balance 1090 200 Weight 119.794 kg Intake: Nourishment/Supplement quantity 240 (ml) IV 250 Veklury 100 mg In Sodium 250 Chloride 0.9% 250 ml @ 500 mls/ hr IV Q24H [facility] Rx#:[id number] Oral 800 400 Output: Void Amount 200 200 Other: Meal Nourishment/Supplement Percent of Meal Consumed 100% Feeding Ability Independent Urine Appearance Clear Urine Color Dark Yellow Bright Yellow Stool Size Small Stool Color Brown Stool Consistency Soft Exam: General: Alert, Awake, No acute Distress Eyes/N/T: EOMI, Head/Neck: neck supple, CV: RRR, No murmurs, Pulm: diminished b/l & fines rales, no wheezing Abd: soft, nontender, +BS x4 Ext: no clubbing/cyanosis, mild b/l LE edema Neuro: Alert, no focal deficits, moves all extremities, Skin: warm/dry OBJ DATA Labs CBC & Chem 7: 02/06/20 05:18 02/07/20 05:13 Labs: Abnormal Lab Results 02/06/20 02/06/20 02/06/20 05:18 05:18 05:18 WBC Hct Neut % (Auto) Lymph % (Auto) Lymph # (Auto) Absolute Neutrophils ABG Methemoglobin VBG pCO2 VBG pO2 VBG HCO3 VBG Total CO2 VBG O2 Saturation VBG Lactic Acid Carboxyhemoglobin Sodium Chloride Carbon Dioxide Glucose 130 H Hemoglobin A1c Calcium 8.4 L Ferritin 648.4 H Lactate Dehydrogenase 230 H Total Creatine Kinase 468 H C-Reactive Protein 3.40 H 02/06/20 02/05/20 02/05/20 05:18 05:03 05:03 WBC 2.7 L Hct 40.8 L Neut % (Auto) 88.9 H 78.4 H Lymph % (Auto) 5.4 L 14.5 L Lymph # (Auto) 0.53 L 0.39 L Absolute Neutrophils 8.73 H ABG Methemoglobin VBG pCO2 VBG pO2 VBG HCO3 VBG Total CO2 VBG O2 Saturation VBG Lactic Acid Carboxyhemoglobin Sodium 132 L Chloride Carbon Dioxide 20 L Glucose 151 H Hemoglobin A1c 6.2 H Calcium 8.5 L Ferritin Lactate Dehydrogenase 230 H Total Creatine Kinase C-Reactive Protein 02/04/20 02/04/20 02/04/20 14:14 13:20 13:20 WBC Hct Neut % (Auto) Lymph % (Auto) Lymph # (Auto) Absolute Neutrophils ABG Methemoglobin 0.3 L VBG pCO2 37.0 L VBG pO2 70.6 H VBG HCO3 23.2 L VBG Total CO2 24.4 L VBG O2 Saturation 89.2 H VBG Lactic Acid Carboxyhemoglobin 5.7 H Sodium Chloride Carbon Dioxide Glucose Hemoglobin A1c Calcium Ferritin 486.3 H Lactate Dehydrogenase Total Creatine Kinase 290 H C-Reactive Protein 8.90 H 02/04/20 02/04/20 02/04/20 13:20 13:20 13:20 WBC Hct Neut % (Auto) 78.6 H Lymph % (Auto) Lymph # (Auto) 0.78 L Absolute Neutrophils ABG Methemoglobin VBG pCO2 VBG pO2 VBG HCO3 VBG Total CO2 VBG O2 Saturation VBG Lactic Acid 2.8 H Carboxyhemoglobin Sodium 131 L Chloride 94 L Carbon Dioxide Glucose 108 H Hemoglobin A1c Calcium 8.4 L Ferritin Lactate Dehydrogenase Total Creatine Kinase C-Reactive Protein Meds: Medications Acetaminophen (Tylenol) 650 mg PO Q6HP PRN PRN Reason: PAIN/FEVER > 101 Hydrocodone Bitart/Acetaminophen ([place] 5/325mg) 1 tab PO Q4HP PRN PRN Reason: PAIN LEVEL 3-6 Albuterol/Ipratropium (Duoneb) 3 ml NEB Q4HP PRN PRN Reason: Shortness Of Breath Last Admin: 02/05/20 09:26 Dose: 3 ml Documented by: Dexamethasone (Decadron) 6 mg PO DAILY [facility] Last Admin: 02/06/20 08:39 Dose: 6 mg Documented by: Dextrose (Dextrose 50%) 0 ml IV UD PRN PRN Reason: Hypoglycemia Diagnostic Test (Pha) (Accu-Chek) 1 each FS ACHS [facility] Last Admin: 02/06/20 20:38 Dose: 1 each Documented by: Diphenhydramine HCl (Benadryl) 25 mg PO HSP PRN PRN Reason: Insomnia Last Admin: 02/06/20 20:37 Dose: 25 mg Documented by: Docusate Sodium (Colace) 100 mg PO BID [facility] Last Admin: 02/06/20 20:37 Dose: 100 mg Documented by: Glucose (Insta-Glucose) 15 gm PO PRN PRN PRN Reason: Hypoglycemia Potassium Chloride 40 meq/ (Dextrose) 520 mls @ 130 mls/hr IV UD PRN PRN Reason: Potassium < 3 Magnesium Sulfate (Magnesium Sulfate) 2 gm in 50 mls @ 50 mls/hr IV UD PRN PRN Reason: Magnesium </= 1.6 Ceftriaxone Sodium 2 gm/ (Dextrose) 50 mls @ 100 mls/hr IV Q24H [facility]; Protocol Last Infusion: 02/06/20 09:10 Dose: Infused Documented by: REMDESIVIR 100 mg/ Sodium (Chloride) 250 mls @ 500 mls/hr IV Q24H [facility] Stop: 02/08/20 14:29 Last Infusion: 02/06/20 14:05 Dose: Infused Documented by: Insulin Human Lispro (Humalog) 0 unit SQ ACHS [facility]; Protocol Last Admin: 02/06/20 20:40 Dose: Not Given Documented by: Melatonin (Melatonin 3mg Tablet) 3 mg PO QHS [facility] Last Admin: 02/06/20 20:38 Dose: 3 mg Documented by: Omeprazole (Prilosec) 20 mg PO HS [facility] Last Admin: 02/06/20 20:56 Dose: 20 mg Documented by: Ondansetron HCl (Zofran) 4 mg IV Q4HP PRN PRN Reason: Nausea And Vomiting Polyethylene Glycol (Miralax) 17 gm PO DAILYP PRN PRN Reason: Constipation Last Admin: 02/06/20 10:38 Dose: 17 gm Documented by: Potassium Chloride (Kdur) 40 meq PO UD PRN PRN Reason: Potssium is 3-3.5 Potassium Chloride (Kdur) 40 meq PO UD PRN PRN Reason: Potassium < 3 Rivaroxaban (Xarelto) 10 mg PO QDAY [facility] Last Admin: 02/06/20 08:39 Dose: 10 mg Documented by: Senna (Senokot) 2 tab PO DAILYP PRN PRN Reason: Constipation Last Admin: 02/06/20 10:38 Dose: 2 tab Documented by: Sodium Chloride (Saline Flush) 10 ml IV Q8 [facility] Last Admin: 02/07/20 04:50 Dose: Not Given Documented by: Tamsulosin HCl (Flomax) 0.4 mg PO BID [facility] Last Admin: 02/06/20 20:37 Dose: 0.4 mg Documented by: Zinc Sulfate (Zinc) 50 mg PO DAILY [facility] Last Admin: 02/06/20 08:39 Dose: 50 mg Documented by: ABG Interpretation ABG results: 02/04/20 14:14 ABG Methemoglobin 0.3 L VBG pH 7.42 VBG pCO2 37.0 L VBG pO2 70.6 H VBG HCO3 23.2 L VBG Total CO2 24.4 L VBG O2 Saturation 89.2 H VBG Base Excess -1 A/P Narrative A/P Narrative: A: *COVID PNA superimposed on underlying ILD: -CTA no PE but b/l groundglass infiltrates -RVP/Myco/Strep neg, SC neg -inflammatory markers now improving *Acute on chronic hypoxic Respiratory failure (2L@home): -on 3-5L [place] *Lactic acidosis: 2/2 hypoxia *ILD: Follows with Dr. Benítez *COPD/bronchiectasis (on 2L@home): Follows with Dr. Benítez *DAMARIS on CPAP: *DM: A1c 6.2 *h/o diastolic CHF: *Obesity: *Rheumatoid arthritis/fibromyalgia: Follows with Dr. Carlos *h/o DVT/PE: [place] *Hyponatremia: Improved P: -Dexa/Remdesivir -empiric abx given his significant comorbidities and on immunosuppressant -IS/Acapella, -O2 support, wean -cpap -Basal and SSI -hold Tofacitinib until infection resolved -pt/ot -ppx:Xaralto/home PPI full code Time Spent With Patient Time: Total time spent is greater than 50% in coordination of care (as documented) at patient's floor/unit and/or counseling patient:
[2020-02-07] MEDS: INSULIN LISPRO 1 UNIT/0.01 ML UNIT SQ SCH ×4 (07:42→20:49)
--- NOTE | 2020-02-07 08:55 | XRay Report ---
CLINICAL INFORMATION: Follow-up pneumonia COMPARISON: None. FINDINGS: The heart is mildly enlarged but unchanged. Mediastinum unremarkable. Large infiltrates have developed in the mid and lower lungs more prominent on the right side. Increased bilateral hilar densities, more prominent on the right likely represent adenopathy.. No effusion IMPRESSION: Large infiltrates in both mid and lower lungs. Bihilar adenopathy. Interpreted and Authenticated by: Pato Santiaog 02/07/20
[2020-02-07] MEDS: DOCUSATE SODIUM 100 MG CAPSULE PO SCH ×2 (09:14→20:40)
[2020-02-07] MEDS: RIVAROXABAN 20 MG TABLET PO SCH (09:14)
[2020-02-07] MEDS: TAMSULOSIN 0.4 MG CAPSULE PO SCH ×2 (09:16→20:50)
[2020-02-07] MEDS: ZINC SULFATE 50 MG CAPSULE PO SCH (09:16)
[2020-02-07] MEDS: DEXAMETHASONE 4 MG TABLET PO SCH (09:16)
[2020-02-07] MEDS: cefTRIAXone 2 GM in DEXTROSE 5% IN WATER 50 ML IV SCH (09:17)
[2020-02-07 09:28] LABS: ALT/SGPT 24 U/L (<40); AST/SGOT 35 U/L (<40); Alkaline Phosphatase 55 U/L (39-117)
[2020-02-07] MEDS: IPRATROPIUM/ALBUTEROL 3 ML AMPUL.NEB NEB PRN (11:45)
--- NOTE | 2020-02-07 12:55 | Internal Med Progress Note ---
SUBJECTIVE Subjective Patient information: Note initiated : 02/07/20 at 12:52 pm Service Date, if different from initiated Date: [] Patient: Hakeem Smart 64 y/o M admitted on 02/04/20 for shortness of breath. Chief Complaint: Presents to the ED feeling sick for 1 week with fever chills body aches. In about 3 days ago start developing shortness of breath which is continue to worsen. His tested positive yesterday because she had similar symptoms so he went to his PCP tested in the office today which showed positive for Covid. He is on 2 L of oxygen chronically. He got pneumonia beginning of the year and has been on it since. Follows Dr. Benítez for interstitial lung disease as well as bronchiectasis In the ED he required 3 L of oxygen. He has pleuritic chest pain. He has occasional productive cough which is mostly chronic CTA was done which showed no PE but did show bilateral groundglass infiltrates. 02/04 Poor sleep last night. Has occasional cough. Has shortness of breath, his chest is less tight. 3 L of oxygen 02/05 Patient quite labored when he gets up to the bathroom and even when he was eating. Oxygen at 3 L on his sitting in chair resting but needs increased when he exerts himself. Minimal cough. Shortness of breath wax and wanes. 02/06 Patient had episode last night where he became hypoxic and coughing quite a bit. Eventually calm down fell asleep feels better this morning. Has no reserve when he starts to cough for exert himself. Inflammatory markers improving. 12:30 PM responded to nurse call with increasing shortness of breath. Stat ABGs 7.49/35/63 on 10 L oxygen. Patient started on BiPAP. Discussed clinical picture. Reviewed imaging from this morning with multifocal pneumonia. Case discussed with patient, explained that he may require ventilatory support if continues to deteriorate and may need transfer to tertiary center. Patient improves of plan. Continue remdesivir/steroid. Serial ABG/chest imaging. Noninvasive mechanical ventilation Constitutional Vitals: Vital Signs Temp Pulse Resp BP Pulse Ox 96.7 F L 59 L 20 127/79 91 02/07/20 03:48 02/07/20 07:45 02/07/20 07:45 02/07/20 07:45 02/07/20 07:45 Period Temp Pulse Resp BP Sys/Estes Pulse Ox Last 24 Hr 96.7 F-98.5 F 57-72 16-24 127-151/69-90 89-98 Intake and Output 02/06/20 02/07/20 02/07/20 21:59 05:59 13:59 Intake Total 1290 400 Output Total 200 200 200 Balance 1090 200 -200 Weight 119.794 kg Labored breathing Minimally anxious No lymphedema Intake & Output: Intake & Output 02/06/20 02/07/20 02/07/20 21:59 05:59 13:59 Intake Total 1290 400 Output Total 200 200 200 Balance 1090 200 -200 Weight 119.794 kg Intake: Nourishment/Supplement quantity 240 (ml) IV 250 Veklury 100 mg In Sodium 250 Chloride 0.9% 250 ml @ 500 mls/ hr IV Q24H [facility] Rx#:[id number] Oral 800 400 Output: Void Amount 200 200 200 Other: Meal Nourishment/Supplement Percent of Meal Consumed 100% Feeding Ability Independent Urine Appearance Clear Urine Color Dark Yellow Bright Yellow Stool Size Small Small Stool Color Brown Brown Stool Consistency Soft # Voids 1 # Bowel Movements 1 OBJ DATA Labs CBC & Chem 7: 02/08/20 08:56 02/07/20 05:13 Labs: Abnormal Lab Results 02/07/20 02/07/20 02/07/20 05:13 05:13 05:13 WBC Hct Neut % (Auto) Lymph % (Auto) Lymph # (Auto) Absolute Neutrophils ABG Methemoglobin VBG pCO2 VBG pO2 VBG HCO3 VBG Total CO2 VBG O2 Saturation VBG Lactic Acid Carboxyhemoglobin Sodium Chloride Carbon Dioxide Glucose 115 H Hemoglobin A1c Calcium 8.3 L Ferritin 492.9 H Lactate Dehydrogenase Total Creatine Kinase 333 H C-Reactive Protein 2.20 H 02/06/20 02/06/20 02/06/20 05:18 05:18 05:18 WBC Hct Neut % (Auto) Lymph % (Auto) Lymph # (Auto) Absolute Neutrophils ABG Methemoglobin VBG pCO2 VBG pO2 VBG HCO3 VBG Total CO2 VBG O2 Saturation VBG Lactic Acid Carboxyhemoglobin Sodium Chloride Carbon Dioxide Glucose 130 H Hemoglobin A1c Calcium 8.4 L Ferritin 648.4 H Lactate Dehydrogenase 230 H Total Creatine Kinase 468 H C-Reactive Protein 3.40 H 02/06/20 02/05/20 02/05/20 05:18 05:03 05:03 WBC 2.7 L Hct 40.8 L Neut % (Auto) 88.9 H 78.4 H Lymph % (Auto) 5.4 L 14.5 L Lymph # (Auto) 0.53 L 0.39 L Absolute Neutrophils 8.73 H ABG Methemoglobin VBG pCO2 VBG pO2 VBG HCO3 VBG Total CO2 VBG O2 Saturation VBG Lactic Acid Carboxyhemoglobin Sodium 132 L Chloride Carbon Dioxide 20 L Glucose 151 H Hemoglobin A1c 6.2 H Calcium 8.5 L Ferritin Lactate Dehydrogenase 230 H Total Creatine Kinase C-Reactive Protein 02/04/20 02/04/20 02/04/20 14:14 13:20 13:20 WBC Hct Neut % (Auto) Lymph % (Auto) Lymph # (Auto) Absolute Neutrophils ABG Methemoglobin 0.3 L VBG pCO2 37.0 L VBG pO2 70.6 H VBG HCO3 23.2 L VBG Total CO2 24.4 L VBG O2 Saturation 89.2 H VBG Lactic Acid Carboxyhemoglobin 5.7 H Sodium Chloride Carbon Dioxide Glucose Hemoglobin A1c Calcium Ferritin 486.3 H Lactate Dehydrogenase Total Creatine Kinase 290 H C-Reactive Protein 8.90 H 02/04/20 02/04/20 02/04/20 13:20 13:20 13:20 WBC Hct Neut % (Auto) 78.6 H Lymph % (Auto) Lymph # (Auto) 0.78 L Absolute Neutrophils ABG Methemoglobin VBG pCO2 VBG pO2 VBG HCO3 VBG Total CO2 VBG O2 Saturation VBG Lactic Acid 2.8 H Carboxyhemoglobin Sodium 131 L Chloride 94 L Carbon Dioxide Glucose 108 H Hemoglobin A1c Calcium 8.4 L Ferritin Lactate Dehydrogenase Total Creatine Kinase C-Reactive Protein Meds: Medications Acetaminophen (Tylenol) 650 mg PO Q6HP PRN PRN Reason: PAIN/FEVER > 101 Hydrocodone Bitart/Acetaminophen ([place] 5/325mg) 1 tab PO Q4HP PRN PRN Reason: PAIN LEVEL 3-6 Albuterol/Ipratropium (Duoneb) 3 ml NEB Q4HP PRN PRN Reason: Shortness Of Breath Last Admin: 02/07/20 11:45 Dose: 3 ml Documented by: Dexamethasone (Decadron) 6 mg PO DAILY [facility] Last Admin: 02/07/20 09:16 Dose: 6 mg Documented by: Dextrose (Dextrose 50%) 0 ml IV UD PRN PRN Reason: Hypoglycemia Diagnostic Test (Pha) (Accu-Chek) 1 each FS [facility] Last Admin: 02/07/20 07:41 Dose: 1 each Documented by: Diphenhydramine HCl (Benadryl) 25 mg PO HSP PRN PRN Reason: Insomnia Last Admin: 02/06/20 20:37 Dose: 25 mg Documented by: Docusate Sodium (Colace) 100 mg PO BID [facility] Last Admin: 02/07/20 09:14 Dose: 100 mg Documented by: Glucose (Insta-Glucose) 15 gm PO PRN PRN PRN Reason: Hypoglycemia Potassium Chloride 40 meq/ (Dextrose) 520 mls @ 130 mls/hr IV UD PRN PRN Reason: Potassium < 3 Magnesium Sulfate (Magnesium Sulfate) 2 gm in 50 mls @ 50 mls/hr IV UD PRN PRN Reason: Magnesium </= 1.6 Ceftriaxone Sodium 2 gm/ (Dextrose) 50 mls @ 100 mls/hr IV Q24H [facility]; Protocol Last Admin: 02/07/20 09:17 Dose: 100 mls/hr Documented by: REMDESIVIR 100 mg/ Sodium (Chloride) 250 mls @ 500 mls/hr IV Q24H [facility] Stop: 02/08/20 14:29 Last Infusion: 02/06/20 14:05 Dose: Infused Documented by: Insulin Human Lispro (Humalog) 0 unit SQ [facility]; Protocol Last Admin: 02/07/20 07:42 Dose: Not Given Documented by: Lorazepam (Ativan) 0.5 mg IV Q6HP PRN PRN Reason: Anxiety Melatonin (Melatonin 3mg Tablet) 3 mg PO QHS [facility] Last Admin: 02/06/20 20:38 Dose: 3 mg Documented by: Omeprazole (Prilosec) 20 mg PO [facility] Last Admin: 02/06/20 20:56 Dose: 20 mg Documented by: Ondansetron HCl (Zofran) 4 mg IV Q4HP PRN PRN Reason: Nausea And Vomiting Polyethylene Glycol (Miralax) 17 gm PO DAILYP PRN PRN Reason: Constipation Last Admin: 02/06/20 10:38 Dose: 17 gm Documented by: Potassium Chloride (Kdur) 40 meq PO UD PRN PRN Reason: Potssium is 3-3.5 Potassium Chloride (Kdur) 40 meq PO UD PRN PRN Reason: Potassium < 3 Rivaroxaban (Xarelto) 10 mg PO QDAY [facility] Last Admin: 02/07/20 09:14 Dose: 10 mg Documented by: Senna (Senokot) 2 tab PO DAILYP PRN PRN Reason: Constipation Last Admin: 02/06/20 10:38 Dose: 2 tab Documented by: Sodium Chloride (Saline Flush) 10 ml IV Q8 [facility] Last Admin: 02/07/20 04:50 Dose: Not Given Documented by: Tamsulosin HCl (Flomax) 0.4 mg PO BID [facility] Last Admin: 02/07/20 09:16 Dose: 0.4 mg Documented by: Zinc Sulfate (Zinc) 50 mg PO DAILY [facility] Last Admin: 02/07/20 09:16 Dose: 50 mg Documented by: ABG Interpretation ABG results: 02/04/20 14:14 ABG Methemoglobin 0.3 L VBG pH 7.42 VBG pCO2 37.0 L VBG pO2 70.6 H VBG HCO3 23.2 L VBG Total CO2 24.4 L VBG O2 Saturation 89.2 H VBG Base Excess -1 A/P Narrative A/P Narrative: *COVID PNA -multifocal, superimposed on underlying ILD: On remdesivir/dexametha sone. Immunocompromise state. -CTA no PE but b/l groundglass infiltrates -RVP/Myco/Strep neg, SC neg -inflammatory markers now improving *Acute on chronic hypoxic Respiratory failure (2L@home): Currently on 10 L oxygen. Transition to noninvasive ventilation. *ILD: Follows with Dr. Benítez *COPD/bronchiectasis (on 2L@home): Follows with Dr. Benítez *DAMARIS on CPAP: Now on BiPAP *DM: A1c 6.2 *h/o diastolic CHF: *Obesity: *Rheumatoid arthritis/fibromyalgia: Follows with Dr. Carlos *h/o DVT/PE: on [place] *Hyponatremia: Improved Plan -Continue dexamethasone/Remdesivir -empiric abx given his significant comorbidities and on immunosuppressant -Serial ABG/chest imaging, -Noninvasive mechanical ventilation -hold Tofacitinib until infection resolved -pt/ot -ppx:Xaralto/home PPI full code Time Spent With Patient Time: Critical care time in excess of 35 minutes
[2020-02-07] MEDS ORDERED: POTASSIUM CHLORIDE 40 MEQ in DEXTROSE 5% IN WATER 500 ML IV PRN (13:14)
[2020-02-07] MEDS ORDERED: ONDANSETRON 4 MG/2 ML VIAL IV PRN (13:14)
[2020-02-07] MEDS ORDERED: HYDROcodone/APAP 5/325MG TABLET PO PRN (13:14)
[2020-02-07] MEDS ORDERED: IPRATROPIUM/ALBUTEROL 3 ML AMPUL.NEB NEB PRN (13:14)
[2020-02-07] MEDS ORDERED: ACETAMINOPHEN 325 MG TABLET PO PRN (13:14)
[2020-02-07] MEDS ORDERED: SENNOSIDES 1 TABLET PO PRN (13:14)
[2020-02-07] MEDS ORDERED: DEXTROSE 31 GM ORAL.SUSP PO PRN (13:14)
[2020-02-07] MEDS ORDERED: DEXTROSE 50% 50 ML VIAL IV PRN (13:14)
[2020-02-07] MEDS ORDERED: POLYETHYLENE GLYCOL 3350 17 GM PACKET PO PRN (13:14)
[2020-02-07] MEDS ORDERED: MAGNESIUM SULFATE 2 GM/50 ML BAG IV PRN (13:14)
[2020-02-07] MEDS ORDERED: POTASSIUM CHLORIDE 20 MEQ TABLET PO PRN ×2 (13:14)
[2020-02-07] MEDS: REMDESIVIR 100 MG in 0.9 % SODIUM CHLORIDE 250 ML IV SCH (14:21)
[2020-02-07 14:50] LABS: Basophils # (Auto) 0.01 K/mcL (0.00-0.20); Basophils % (Auto) 0.1 % (0.0-2.0); Eosinophils # (Auto) 0 K/mcL (0.00-0.70); Eosinophils % (Auto) 0 % (0.0-7.0); Hematocrit 42.9 % (41.0-55.0); Hemoglobin 14.2 g/dL (13.5-16.5); Lymphocytes # (Auto) 0.68 K/mcL (1.50-4.80); Mean Cell Volume 84.1 fL (80.0-100.0); Mean Corpuscular HGB Conc 33.1 g/dL (31.0-36.0); Mean Platelet Volume 9.5 fL (7.4-10.4); Monocytes # (Auto) 0.59 K/mcL (0.10-0.90); Neutrophils % (Auto) 84.9 % (38.0-78.0); Platelet Count 277 K/mcL (140-440); Red Cell Distribution Width 13.8 % (11.5-14.5); WBC 8.5 K/mcL (4.5-11.0)
[2020-02-07] MEDS: OMEPRAZOLE 20 MG CAPSULE PO SCH (20:40)
[2020-02-07] MEDS: MELATONIN 3 MG TABLET PO SCH (20:40)
[2020-02-07] MEDS ORDERED: diphenhydrAMINE 25 MG CAPSULE PO PRN (21:00)
[2020-02-08 06:46] LABS: Basophils # (Auto) 0.01 K/mcL (0.00-0.20); Basophils % (Auto) 0.1 % (0.0-2.0); Eosinophils # (Auto) 0 K/mcL (0.00-0.70); Eosinophils % (Auto) 0 % (0.0-7.0); Hematocrit 39.7 % (41.0-55.0); Hemoglobin 13.4 g/dL (13.5-16.5); Mean Cell Volume 81.7 fL (80.0-100.0); Mean Corpuscular HGB Conc 33.8 g/dL (31.0-36.0); Mean Platelet Volume 9.2 fL (7.4-10.4); Monocytes # (Auto) 0.49 K/mcL (0.10-0.90); Monocytes % (Auto) 6.8 % (1.0-12.0); Neutrophils % (Auto) 86.1 % (38.0-78.0); Platelet Count 263 K/mcL (140-440); RBC 4.86 M/mcL (4.50-5.90); Red Cell Distribution Width 13.6 % (11.5-14.5); WBC 7.2 K/mcL (4.5-11.0)
[2020-02-08] MEDS: INSULIN LISPRO 1 UNIT/0.01 ML UNIT SQ SCH ×4 (07:58→19:25)
[2020-02-08] MEDS: 0.9 % SODIUM CHLORIDE 10 ML SYRINGE IV SCH ×4 (07:58→23:21)
[2020-02-08] MEDS ORDERED: POTASSIUM CHLORIDE 20 MEQ/15 ML ML PO PRN (08:33)
[2020-02-08] MEDS: cefTRIAXone 2 GM in DEXTROSE 5% IN WATER 50 ML IV SCH (09:01)
[2020-02-08] MEDS: ZINC SULFATE 50 MG CAPSULE PO SCH (09:02)
[2020-02-08] MEDS: DOCUSATE SODIUM 100 MG CAPSULE PO SCH ×2 (09:02→19:25)
[2020-02-08] MEDS: DEXAMETHASONE 4 MG TABLET PO SCH (09:02)
[2020-02-08] MEDS: RIVAROXABAN 20 MG TABLET PO SCH (09:02)
[2020-02-08] MEDS: TAMSULOSIN 0.4 MG CAPSULE PO SCH ×2 (09:02→19:25)
[2020-02-08 10:23] LABS: Basophils # (Auto) 0 K/mcL (0.00-0.20); Basophils % (Auto) 0 % (0.0-2.0); Eosinophils # (Auto) 0.01 K/mcL (0.00-0.70); Eosinophils % (Auto) 0.1 % (0.0-7.0); Hematocrit 40.2 % (41.0-55.0); Hemoglobin 13.5 g/dL (13.5-16.5); Lymphocytes # (Auto) 0.63 K/mcL (1.50-4.80); Lymphocytes % (Auto) 7.3 % (15.0-49.0); Mean Cell Volume 82.4 fL (80.0-100.0); Mean Corpuscular HGB Conc 33.6 g/dL (31.0-36.0); Mean Platelet Volume 9.1 fL (7.4-10.4); Monocytes # (Auto) 0.41 K/mcL (0.10-0.90); Monocytes % (Auto) 4.7 % (1.0-12.0); Neutrophils % (Auto) 87.9 % (38.0-78.0); Platelet Count 263 K/mcL (140-440); RBC 4.88 M/mcL (4.50-5.90); Red Cell Distribution Width 13.5 % (11.5-14.5); WBC 8.7 K/mcL (4.5-11.0)
--- NOTE | 2020-02-08 10:30 | Internal Med Progress Note ---
SUBJECTIVE Subjective Patient information: Note initiated : 02/08/20 at 10:27 am Service Date, if different from initiated Date: [] Patient: Hakeem Smart 64 y/o M admitted on 02/04/20 for shortness of breath. Chief Complaint: Presents to the ED feeling sick for 1 week with fever chills body aches. In about 3 days ago start developing shortness of breath which is continue to worsen. His tested positive yesterday because she had similar symptoms so he went to his PCP tested in the office today which showed positive for Covid. He is on 2 L of oxygen chronically. He got pneumonia beginning of the year and has been on it since. Follows Dr. Benítez for interstitial lung disease as well as bronchiectasis In the ED he required 3 L of oxygen. He has pleuritic chest pain. He has occasional productive cough which is mostly chronic CTA was done which showed no PE but did show bilateral groundglass infiltrates. 02/04 Poor sleep last night. Has occasional cough. Has shortness of breath, his chest is less tight. 3 L of oxygen 02/05 Patient quite labored when he gets up to the bathroom and even when he was eating. Oxygen at 3 L on his sitting in chair resting but needs increased when he exerts himself. Minimal cough. Shortness of breath wax and wanes. 02/06 Patient had episode last night where he became hypoxic and coughing quite a bit. Eventually calm down fell asleep feels better this morning. Has no reserve when he starts to cough for exert himself. Inflammatory markers improving. 12:30 PM responded to nurse call with increasing shortness of breath. Stat ABGs 7.49/35/63 on 10 L oxygen. Patient started on BiPAP. Discussed clinical picture. Reviewed imaging from this morning with multifocal pneumonia. Case discussed with patient, explained that he may require ventilatory support if continues to deteriorate and may need transfer to tertiary center. Patient improves of plan. Continue remdesivir/steroid. Serial ABG/chest imaging. Noninvasive mechanical ventilation 02/07-patient doing well on noninvasive ventilation. ABG improved to 7.4 on 60% FiO2 BiPAP. This morning transiently off BiPAP. Able to talk in full sentences. Feels better. Continue remdesivir/dexamethasone. On empiric antibiotic coverage on Rocephin, follow inflammatory/coagulation monitor. Serial chest imaging/ABGs. Constitutional Vitals: Vital Signs Temp Pulse Resp BP Pulse Ox 97.1 F 57 L 19 121/78 97 02/08/20 03:35 02/08/20 08:01 02/08/20 08:01 02/08/20 08:01 02/08/20 08:01 Period Temp Pulse Resp BP Sys/Estes Pulse Ox Last 24 Hr 96.8 F-98.2 F 50-74 13-30 101-130/53-78 85-100 Intake and Output 02/07/20 02/08/20 02/08/20 21:59 05:59 13:59 Intake Total 1150 Output Total 200 400 250 Balance 950 -400 -250 Weight 119.204 kg Alert oriented On 10 L oxygen Nonlabored breathing No anxiety Intake & Output: Intake & Output 02/07/20 02/08/20 02/08/20 21:59 05:59 13:59 Intake Total 1150 Output Total 200 400 250 Balance 950 -400 -250 Weight 119.204 kg Intake: Nourishment/Supplement quantity 480 (ml) IV 250 Veklury 100 mg In Sodium 250 Chloride 0.9% 250 ml @ 500 mls/ hr IV Q24H [facility] Rx#:[id number] Oral 420 Output: Void Amount 200 400 250 Other: Meal Dinner Percent of Meal Consumed 100% Feeding Ability Independent Nourishment/Supplement name Glucerna Urine Appearance Clear Clear Clear Urine Color Dark Yellow Dark Yellow Dark Yellow OBJ DATA Labs CBC & Chem 7: 02/08/20 08:56 02/07/20 05:13 Labs: Abnormal Lab Results 02/08/20 02/08/20 02/07/20 08:56 04:41 05:13 Hgb 13.4 L Hct 40.2 L 39.7 L Neut % (Auto) 87.9 H 86.1 H 84.9 H Lymph % (Auto) 7.3 L 7.0 L 8.0 L Lymph # (Auto) 0.63 L 0.50 L 0.68 L Absolute Neutrophils Glucose Calcium Ferritin Lactate Dehydrogenase Total Creatine Kinase C-Reactive Protein 02/07/20 02/07/20 02/07/20 05:13 05:13 05:13 Hgb Hct Neut % (Auto) Lymph % (Auto) Lymph # (Auto) Absolute Neutrophils Glucose 115 H Calcium 8.3 L Ferritin 492.9 H Lactate Dehydrogenase Total Creatine Kinase 333 H C-Reactive Protein 2.20 H 02/06/20 02/06/20 02/06/20 05:18 05:18 05:18 Hgb Hct Neut % (Auto) Lymph % (Auto) Lymph # (Auto) Absolute Neutrophils Glucose 130 H Calcium 8.4 L Ferritin 648.4 H Lactate Dehydrogenase 230 H Total Creatine Kinase 468 H C-Reactive Protein 3.40 H 02/06/20 05:18 Hgb Hct Neut % (Auto) 88.9 H Lymph % (Auto) 5.4 L Lymph # (Auto) 0.53 L Absolute Neutrophils 8.73 H Glucose Calcium Ferritin Lactate Dehydrogenase Total Creatine Kinase C-Reactive Protein Meds: Medications Acetaminophen (Tylenol) 650 mg PO Q6HP PRN PRN Reason: PAIN/FEVER > 101 Hydrocodone Bitart/Acetaminophen ([place] 5/325mg) 1 tab PO Q4HP PRN PRN Reason: PAIN LEVEL 3-6 Albuterol/Ipratropium (Duoneb) 3 ml NEB Q4HP PRN PRN Reason: Shortness Of Breath Dexamethasone (Decadron) 6 mg PO DAILY [facility] Last Admin: 02/08/20 09:02 Dose: 6 mg Documented by: Dextrose (Dextrose 50%) 0 ml IV UD PRN PRN Reason: Hypoglycemia Diagnostic Test (Pha) (Accu-Chek) 1 each FS [facility] Last Admin: 02/08/20 07:58 Dose: 1 each Documented by: Diphenhydramine HCl (Benadryl) 25 mg PO HSP PRN PRN Reason: Insomnia Docusate Sodium (Colace) 100 mg PO BID [facility] Last Admin: 02/08/20 09:02 Dose: 100 mg Documented by: Glucose (Insta-Glucose) 15 gm PO PRN PRN PRN Reason: Hypoglycemia Ceftriaxone Sodium 2 gm/ (Dextrose) 50 mls @ 100 mls/hr IV DAILY [facility]; Protocol Last Admin: 02/08/20 09:01 Dose: 100 mls/hr Documented by: Magnesium Sulfate (Magnesium Sulfate) 2 gm in 50 mls @ 50 mls/hr IV UD PRN PRN Reason: Magnesium </= 1.6 REMDESIVIR 100 mg/ Sodium (Chloride) 250 mls @ 500 mls/hr IV Q24H [facility] Stop: 02/08/20 14:29 Last Infusion: 02/07/20 15:00 Dose: Infused Documented by: Potassium Chloride 40 meq/ (Dextrose) 520 mls @ 130 mls/hr IV UD PRN PRN Reason: Potassium < 3 Insulin Human Lispro (Humalog) 0 unit SQ [facility]; Protocol Last Admin: 02/08/20 07:58 Dose: Not Given Documented by: Lorazepam (Ativan) 0.5 mg IV Q6HP PRN PRN Reason: Anxiety Melatonin (Melatonin 3mg Tablet) 3 mg PO QHS [facility] Last Admin: 02/07/20 20:40 Dose: 3 mg Documented by: Omeprazole (Prilosec) 20 mg PO HS [facility] Last Admin: 02/07/20 20:40 Dose: 20 mg Documented by: Ondansetron HCl (Zofran) 4 mg IV Q4HP PRN PRN Reason: Nausea And Vomiting Polyethylene Glycol (Miralax) 17 gm PO DAILYP PRN PRN Reason: Constipation Potassium Chloride (Kdur) 40 meq PO UD PRN PRN Reason: Potssium is 3-3.5 Potassium Chloride (Kdur) 40 meq PO UD PRN PRN Reason: Potassium < 3 Potassium Chloride (Potassium Chloride) 20 meq PO BIDCC PRN PRN Reason: K <3.6 Rivaroxaban (Xarelto) 10 mg PO QDAY [facility] Last Admin: 02/08/20 09:02 Dose: 10 mg Documented by: Senna (Senokot) 2 tab PO DAILYP PRN PRN Reason: Constipation Sodium Chloride (Saline Flush) 10 ml IV Q8 [facility] Last Admin: 02/08/20 07:58 Dose: 10 ml Documented by: Tamsulosin HCl (Flomax) 0.4 mg PO BID [facility] Last Admin: 02/08/20 09:02 Dose: 0.4 mg Documented by: Zinc Sulfate (Zinc) 50 mg PO DAILY [facility] Last Admin: 02/08/20 09:02 Dose: 50 mg Documented by: ABG Interpretation ABG results: 02/04/20 14:14 ABG Methemoglobin 0.3 L VBG pH 7.42 VBG pCO2 37.0 L VBG pO2 70.6 H VBG HCO3 23.2 L VBG Total CO2 24.4 L VBG O2 Saturation 89.2 H VBG Base Excess -1 A/P Narrative A/P Narrative: *COVID PNA -multifocal, superimposed on underlying ILD: On remdesivir/dexamethasone. Immunocompromise state. -CTA no PE but b/l groundglass infiltrates -RVP/Myco/Strep neg, SC neg -inflammatory markers now improving *Acute Hypoxic Respiratory failure (2L@home): Currently on 60% FiO2 noninvasive mechanical ventilation. Continue serial ABGs. Current ABG 7.4 *History of interstitial lung disease/COPD/bronchiectasis (on 2L@home): Follows with Dr. Benítez *DAMARIS -currently on noninvasive mechanical ventilation *DM: A1c 6.2 *h/o diastolic CHF: *Rheumatoid arthritis/fibromyalgia: Follows with Dr. Carlos *h/o DVT/PE: on rivaroxaban Plan -Continue dexamethasone/Remdesivir -empiric abx for underlying immunosuppressed state -Serial ABG/chest imaging, -Noninvasive mechanical ventilation -hold Tofacitinib until infection resolved -pt/ot -ppx:Xaralto/home PPI full code Time Spent With Patient Time: Total time spent is greater than 50% in coordination of care (as documented) at patient's floor/unit and/or counseling patient:
--- NOTE | 2020-02-08 13:23 | XRay Report ---
CLINICAL INFORMATION: BILATERAL pneumonia COMPARISON: 02/07/2020 FINDINGS: Moderate patchy infiltrates in both mid and lower lungs show slight improved aeration when compared to yesterday's exam. No effusions. Heart is mildly enlarged, but unchanged. Mediastinum and pulmonary vessels are normal. IMPRESSION: Moderate patchy bilateral mid and lower lung infiltrates - slight improvement from yesterday Interpreted and Authenticated by: Pato Santiago 02/08/20
[2020-02-08] MEDS: REMDESIVIR 100 MG in 0.9 % SODIUM CHLORIDE 250 ML IV SCH (14:41)
[2020-02-08] MEDS: OMEPRAZOLE 20 MG CAPSULE PO SCH (19:25)
[2020-02-08] MEDS: MELATONIN 3 MG TABLET PO SCH (19:53)
[2020-02-09 06:04] LABS: Basophils # (Auto) 0.01 K/mcL (0.00-0.20); Basophils % (Auto) 0.1 % (0.0-2.0); Eosinophils # (Auto) 0.01 K/mcL (0.00-0.70); Eosinophils % (Auto) 0.1 % (0.0-7.0); Hematocrit 39.6 % (41.0-55.0); Hemoglobin 13.4 g/dL (13.5-16.5); Lymphocytes # (Auto) 0.65 K/mcL (1.50-4.80); Mean Cell Volume 82.3 fL (80.0-100.0); Mean Corpuscular HGB Conc 33.8 g/dL (31.0-36.0); Mean Platelet Volume 9.3 fL (7.4-10.4); Monocytes # (Auto) 0.46 K/mcL (0.10-0.90); Neutrophils % (Auto) 87.8 % (38.0-78.0); Platelet Count 264 K/mcL (140-440); RBC 4.81 M/mcL (4.50-5.90); Red Cell Distribution Width 13.5 % (11.5-14.5); WBC 9.2 K/mcL (4.5-11.0)
[2020-02-09 06:25] LABS: ALT/SGPT 19 U/L (<40); AST/SGOT 18 U/L (<40); Albumin 3.2 gm/dL (3.2-5.2); Albumin/Globulin Ratio 1.1 (1.0-2.3); Alkaline Phosphatase 53 U/L (39-117); Bilirubin,Direct < 0.2 mg/dL (<0.3); Bilirubin,Total 0.5 mg/dL (0.1-1.0); Blood Urea Nitrogen 13 mg/dL (8-23); Carbon Dioxide 25 mmol/L (22-30); Chloride 101 mmol/L (96-108); Globulin 2.9 gm/dL (2.2-3.7); Glomerular Filtration Rate 100; Glucose 109 mg/dL (70-105); Lactate Dehydrogenase 189 U/L (135-225); Phosphorous 3.6 mg/dL (2.5-4.5); Triglycerides 51 mg/dL (<150); Uric Acid 4.4 mg/dL (2.5-8.0)
[2020-02-09] MEDS: 0.9 % SODIUM CHLORIDE 10 ML SYRINGE IV SCH ×3 (06:27→20:15)
[2020-02-09] MEDS: INSULIN LISPRO 1 UNIT/0.01 ML UNIT SQ SCH ×4 (08:06→22:07)
[2020-02-09] MEDS: DOCUSATE SODIUM 100 MG CAPSULE PO SCH ×2 (08:51→20:15)
[2020-02-09] MEDS: DEXAMETHASONE 4 MG TABLET PO SCH (08:51)
[2020-02-09] MEDS: RIVAROXABAN 20 MG TABLET PO SCH (08:51)
[2020-02-09] MEDS: cefTRIAXone 2 GM in DEXTROSE 5% IN WATER 50 ML IV SCH (08:51)
[2020-02-09] MEDS: ZINC SULFATE 50 MG CAPSULE PO SCH (08:51)
[2020-02-09] MEDS: TAMSULOSIN 0.4 MG CAPSULE PO SCH ×2 (08:52→20:15)
--- NOTE | 2020-02-09 10:32 | Internal Med Progress Note ---
SUBJECTIVE Subjective Patient information: Note initiated : 02/09/20 at 10:27 am Service Date, if different from initiated Date: [] Patient: Hakeem Smart 64 y/o M admitted on 02/04/20 for shortness of breath. Chief Complaint: [] Interval history: Presents to the ED feeling sick for 1 week with fever chills body aches. In about 3 days ago start developing shortness of breath which is continue to worsen. His tested positive yesterday because she had similar symptoms so he went to his PCP tested in the office today which showed positive for Covid. He is on 2 L of oxygen chronically. He got pneumonia beginning of the year and has been on it since. Follows Dr. Benítez for interstitial lung disease as well as bronchiectasis In the ED he required 3 L of oxygen. He has pleuritic chest pain. He has occasional productive cough which is mostly chronic CTA was done which showed no PE but did show bilateral groundglass infiltrates. 02/04 Poor sleep last night. Has occasional cough. Has shortness of breath, his chest is less tight. 3 L of oxygen 02/05 Patient quite labored when he gets up to the bathroom and even when he was eating. Oxygen at 3 L on his sitting in chair resting but needs increased when he exerts himself. Minimal cough. Shortness of breath wax and wanes. 02/06 Patient had episode last night where he became hypoxic and coughing quite a bit. Eventually calm down fell asleep feels better this morning. Has no reserve when he starts to cough for exert himself. Inflammatory markers improving. 12:30 PM responded to nurse call with increasing shortness of breath. Stat ABGs 7.49/35/63 on 10 L oxygen. Patient started on BiPAP. Discussed clinical picture. Reviewed imaging from this morning with multifocal pneumonia. Case discussed with patient, explained that he may require ventilatory support if continues to deteriorate and may need transfer to tertiary center. Patient improves of plan. Continue remdesivir/steroid. Serial ABG/chest imaging. Noninvasive mechanical ventilation 02/07-patient doing well on noninvasive ventilation. ABG improved to 7.4 / on 60% FiO2 BiPAP. This morning transiently off BiPAP. Able to talk in full sentences. Feels better. Continue remdesivir/dexamethasone. On empiric antibiotic coverage on Rocephin, follow inflammatory/coagulation monitor. Serial chest imaging/ABGs. 02/08-patient on 10 L oxygen status quo, CPAP at night. On remdesivir/steroid. On rivaroxaban. No overnight fever chills. White count 9.2. D-dimer 0.27 CRP 2.2, procalcitonin 0.06. . Constitutional Vitals: Vital Signs Temp Pulse Resp BP Pulse Ox 97.0 F 55 L 18 124/76 95 02/09/20 06:01 02/09/20 06:01 02/09/20 08:00 02/09/20 06:01 02/09/20 08:00 Period Temp Pulse Resp BP Sys/Estes Pulse Ox Last 24 Hr 96.8 F-97.3 F 49-69 12-25 108-135/67-94 89-98 Intake and Output 02/08/20 02/09/20 02/09/20 21:59 05:59 13:59 Intake Total 600 800 Output Total 700 Balance -100 800 Weight 118.025 kg Alert oriented Labored breathing on 10 L oxygen No anxiety No telemetry events Intake & Output: Intake & Output 02/08/20 02/09/20 02/09/20 21:59 05:59 13:59 Intake Total 600 800 Output Total 700 Balance -100 800 Weight 118.025 kg Intake: IV 300 Veklury 100 mg In Sodium 250 Chloride 0.9% 250 ml @ 500 mls/ hr IV Q24H [facility] Rx#:[id number] Rocephin 2 gm In Dextrose 5% in 50 Water 50 ml @ 100 mls/hr IV DAILY [facility] Rx#:[id number] Oral 300 GI Tube Flush 800 Output: Void Amount 700 Other: Urine Appearance Clear Urine Color Dark Yellow Stool Size Moderate Stool Color Brown Stool Consistency Soft # Bowel Movements 1 OBJ DATA Labs CBC & Chem 7: 02/09/20 04:37 02/09/20 04:36 Labs: Abnormal Lab Results 02/09/20 02/09/20 02/09/20 04:37 04:37 04:36 Hgb 13.4 L Hct 39.6 L Neut % (Auto) 87.8 H Lymph % (Auto) 7.0 L Lymph # (Auto) 0.65 L Absolute Neutrophils 8.11 H D-Dimer < 0.27 L Glucose 109 H Calcium 8.0 L Ferritin Total Creatine Kinase C-Reactive Protein 02/08/20 02/08/20 02/08/20 08:56 08:56 04:41 Hgb 13.4 L Hct 40.2 L 39.7 L Neut % (Auto) 87.9 H 86.1 H Lymph % (Auto) 7.3 L 7.0 L Lymph # (Auto) 0.63 L 0.50 L Absolute Neutrophils D-Dimer < 0.27 L Glucose Calcium Ferritin Total Creatine Kinase C-Reactive Protein 02/07/20 02/07/20 02/07/20 05:13 05:13 05:13 Hgb Hct Neut % (Auto) 84.9 H Lymph % (Auto) 8.0 L Lymph # (Auto) 0.68 L Absolute Neutrophils D-Dimer Glucose 115 H Calcium 8.3 L Ferritin 492.9 H Total Creatine Kinase C-Reactive Protein 02/07/20 05:13 Hgb Hct Neut % (Auto) Lymph % (Auto) Lymph # (Auto) Absolute Neutrophils D-Dimer Glucose Calcium Ferritin Total Creatine Kinase 333 H C-Reactive Protein 2.20 H Meds: Medications Acetaminophen (Tylenol) 650 mg PO Q6HP PRN PRN Reason: PAIN/FEVER > 101 Hydrocodone Bitart/Acetaminophen ([place] 5/325mg) 1 tab PO Q4HP PRN PRN Reason: PAIN LEVEL 3-6 Albuterol/Ipratropium (Duoneb) 3 ml NEB Q4HP PRN PRN Reason: Shortness Of Breath Dexamethasone (Decadron) 6 mg PO DAILY [facility] Last Admin: 02/09/20 08:51 Dose: 6 mg Documented by: Dextrose (Dextrose 50%) 0 ml IV UD PRN PRN Reason: Hypoglycemia Diagnostic Test (Pha) (Accu-Chek) 1 each FS ACHS [facility] Last Admin: 02/09/20 08:06 Dose: 1 each Documented by: Diphenhydramine HCl (Benadryl) 25 mg PO HSP PRN PRN Reason: Insomnia Docusate Sodium (Colace) 100 mg PO BID [facility] Last Admin: 02/09/20 08:51 Dose: 100 mg Documented by: Glucose (Insta-Glucose) 15 gm PO PRN PRN PRN Reason: Hypoglycemia Ceftriaxone Sodium 2 gm/ (Dextrose) 50 mls @ 100 mls/hr IV DAILY [facility]; Protocol Last Admin: 02/09/20 08:51 Dose: 100 mls/hr Documented by: Magnesium Sulfate (Magnesium Sulfate) 2 gm in 50 mls @ 50 mls/hr IV UD PRN PRN Reason: Magnesium </= 1.6 Potassium Chloride 40 meq/ (Dextrose) 520 mls @ 130 mls/hr IV UD PRN PRN Reason: Potassium < 3 Insulin Human Lispro (Humalog) 0 unit SQ ACHS [facility]; Protocol Last Admin: 02/09/20 08:06 Dose: Not Given Documented by: Lorazepam (Ativan) 0.5 mg IV Q6HP PRN PRN Reason: Anxiety Melatonin (Melatonin 3mg Tablet) 3 mg PO QHS [facility] Last Admin: 02/08/20 19:53 Dose: Not Given Documented by: Omeprazole (Prilosec) 20 mg PO HS [facility] Last Admin: 02/08/20 19:25 Dose: 20 mg Documented by: Ondansetron HCl (Zofran) 4 mg IV Q4HP PRN PRN Reason: Nausea And Vomiting Polyethylene Glycol (Miralax) 17 gm PO DAILYP PRN PRN Reason: Constipation Potassium Chloride (Kdur) 40 meq PO UD PRN PRN Reason: Potssium is 3-3.5 Potassium Chloride (Kdur) 40 meq PO UD PRN PRN Reason: Potassium < 3 Potassium Chloride (Potassium Chloride) 20 meq PO BIDCC PRN PRN Reason: K <3.6 Rivaroxaban (Xarelto) 10 mg PO QDAY [facility] Last Admin: 02/09/20 08:51 Dose: 10 mg Documented by: Senna (Senokot) 2 tab PO DAILYP PRN PRN Reason: Constipation Sodium Chloride (Saline Flush) 10 ml IV Q8 [facility] Last Admin: 02/09/20 06:27 Dose: 10 ml Documented by: Tamsulosin HCl (Flomax) 0.4 mg PO BID [facility] Last Admin: 02/09/20 08:52 Dose: 0.4 mg Documented by: Zinc Sulfate (Zinc) 50 mg PO DAILY [facility] Last Admin: 02/09/20 08:51 Dose: 50 mg Documented by: ABG Interpretation ABG results: 02/04/20 14:14 ABG Methemoglobin 0.3 L VBG pH 7.42 VBG pCO2 37.0 L VBG pO2 70.6 H VBG HCO3 23.2 L VBG Total CO2 24.4 L VBG O2 Saturation 89.2 H VBG Base Excess -1 A/P Narrative A/P Narrative: * *COVID PNA -multifocal, superimposed on underlying ILD: On remdesivir/dexamethasone. Immunocompromise state. -CTA no PE but b/l groundglass infiltrates -RVP/Myco/Strep neg, SC neg * *Acute Hypoxic Respiratory failure (2L@home): Currently on NIV. ABG 7.4 on 60% FiO2 * *History of interstitial lung disease/COPD/bronchiectasis (on 2L@home): Follows with Dr. Benítez * *DAMARIS -currently on noninvasive mechanical ventilation * *DM: A1c 6.2 * *h/o diastolic CHF: * *Rheumatoid arthritis/fibromyalgia: Follows with Dr. 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
[2020-02-09] MEDS: OMEPRAZOLE 20 MG CAPSULE PO SCH (20:15)
[2020-02-09] MEDS: MELATONIN 3 MG TABLET PO SCH (20:15)
[2020-02-10] MEDS: 0.9 % SODIUM CHLORIDE 10 ML SYRINGE IV SCH ×3 (05:09→22:03)
[2020-02-10 05:58] LABS: Basophils # (Auto) 0.01 K/mcL (0.00-0.20); Basophils % (Auto) 0.1 % (0.0-2.0); Eosinophils # (Auto) 0.01 K/mcL (0.00-0.70); Eosinophils % (Auto) 0.1 % (0.0-7.0); Hematocrit 40.2 % (41.0-55.0); Hemoglobin 13.6 g/dL (13.5-16.5); Lymphocytes # (Auto) 0.61 K/mcL (1.50-4.80); Lymphocytes % (Auto) 6.1 % (15.0-49.0); Mean Cell Volume 81.4 fL (80.0-100.0); Mean Corpuscular HGB Conc 33.8 g/dL (31.0-36.0); Monocytes # (Auto) 0.52 K/mcL (0.10-0.90); Monocytes % (Auto) 5.2 % (1.0-12.0); Neutrophils % (Auto) 88.5 % (38.0-78.0); Platelet Count 324 K/mcL (140-440); RBC 4.94 M/mcL (4.50-5.90); Red Cell Distribution Width 13.5 % (11.5-14.5); WBC 10.1 K/mcL (4.5-11.0)
[2020-02-10 06:37] LABS: ALT/SGPT 20 U/L (<40); AST/SGOT 15 U/L (<40); Albumin 3.2 gm/dL (3.2-5.2); Alkaline Phosphatase 57 U/L (39-117); Bilirubin,Direct 0.2 mg/dL (<0.3); Bilirubin,Total 0.7 mg/dL (0.1-1.0); Blood Urea Nitrogen 16 mg/dL (8-23); Calcium 8.4 mg/dL (8.6-10.4); Carbon Dioxide 24 mmol/L (22-30); Chloride 102 mmol/L (96-108); Globulin 3.1 gm/dL (2.2-3.7); Glomerular Filtration Rate 100; Glucose 111 mg/dL (70-105); Lactate Dehydrogenase 193 U/L (135-225); Phosphorous 3.6 mg/dL (2.5-4.5); Triglycerides 53 mg/dL (<150); Uric Acid 4.3 mg/dL (2.5-8.0)
[2020-02-10] MEDS: INSULIN LISPRO 1 UNIT/0.01 ML UNIT SQ SCH ×4 (08:02→22:03)
[2020-02-10] MEDS: DOCUSATE SODIUM 100 MG CAPSULE PO SCH ×2 (08:12→21:05)
[2020-02-10] MEDS: TAMSULOSIN 0.4 MG CAPSULE PO SCH ×2 (08:12→21:05)
[2020-02-10] MEDS: cefTRIAXone 2 GM in DEXTROSE 5% IN WATER 50 ML IV SCH (08:14)
[2020-02-10] MEDS: RIVAROXABAN 20 MG TABLET PO SCH (08:23)
[2020-02-10] MEDS: ZINC SULFATE 50 MG CAPSULE PO SCH (08:24)
[2020-02-10] MEDS: DEXAMETHASONE 4 MG TABLET PO SCH (08:25)
[2020-02-10] MEDS: REMDESIVIR 100 MG in 0.9 % SODIUM CHLORIDE 250 ML IV SCH (10:52)
--- NOTE | 2020-02-10 12:22 | Internal Med Progress Note ---
SUBJECTIVE Subjective Patient information: Note initiated : 02/10/20 at 12:19 pm Service Date, if different from initiated Date: [] Patient: Hakeem Smart 64 y/o M admitted on 02/04/20 for shortness of breath. Chief Complaint: [] Interval history: Presents to the ED feeling sick for 1 week with fever chills body aches. In about 3 days ago start developing shortness of breath which is continue to worsen. His tested positive yesterday because she had similar symptoms so he went to his PCP tested in the office today which showed positive for Covid. He is on 2 L of oxygen chronically. He got pneumonia beginning of the year and has been on it since. Follows Dr. Benítez for interstitial lung disease as well as bronchiectasis In the ED he required 3 L of oxygen. He has pleuritic chest pain. He has occasional productive cough which is mostly chronic CTA was done which showed no PE but did show bilateral groundglass infiltrates. 02/04 Poor sleep last night. Has occasional cough. Has shortness of breath, his chest is less tight. 3 L of oxygen 02/05 Patient quite labored when he gets up to the bathroom and even when he was eating. Oxygen at 3 L on his sitting in chair resting but needs increased when he exerts himself. Minimal cough. Shortness of breath wax and wanes. 02/06 Patient had episode last night where he became hypoxic and coughing quite a bit. Eventually calm down fell asleep feels better this morning. Has no reserve when he starts to cough for exert himself. Inflammatory markers improving. 12:30 PM responded to nurse call with increasing shortness of breath. Stat ABGs 7.49/35/63 on 10 L oxygen. Patient started on BiPAP. Discussed clinical picture. Reviewed imaging from this morning with multifocal pneumonia. Case discussed with patient, explained that he may require ventilatory support if continues to deteriorate and may need transfer to tertiary center. Patient improves of plan. Continue remdesivir/steroid. Serial ABG/chest imaging. Noninvasive mechanical ventilation 02/07-patient doing well on noninvasive ventilation. ABG improved to 7.4 / on 60% FiO2 BiPAP. This morning transiently off BiPAP. Able to talk in full sentences. Feels better. Continue remdesivir/dexamethasone. On empiric antibiotic coverage on Rocephin, follow inflammatory/coagulation monitor. Serial chest imaging/ABGs. 02/08-patient on 10 L oxygen status quo, CPAP at night. On remdesivir/steroid. On rivaroxaban. No overnight fever chills. White count 9.2. D-dimer 0.27 CRP 2.2, procalcitonin 0.06. 02/09-patient doing a lot better. No overnight events. Now on 35% noninvasive ventilation. Plan to extend remdesivir to 10-day treatment. Continue serial chest imaging/pulmonary toilet. White count 10.1. On empiric extended antibiotic coverage in light of immunosuppressed state. Continue Covid precautions Constitutional Vitals: Vital Signs Temp Pulse Resp BP Pulse Ox 97.1 F 57 L 15 120/70 91 02/10/20 05:20 02/10/20 05:20 02/10/20 08:00 02/10/20 08:00 02/10/20 08:00 Period Temp Pulse Resp BP Sys/Estes Pulse Ox Last 24 Hr 96.7 F-97.1 F 51-66 03-11 114-127/69-85 87-98 Intake and Output 02/09/20 02/10/20 02/10/20 21:59 05:59 13:59 Intake Total 530 Output Total 550 750 Balance -550 -750 530 Weight 118.705 kg Intake & Output: Intake & Output 02/09/20 02/10/20 02/10/20 21:59 05:59 13:59 Intake Total 530 Output Total 550 750 Balance -550 -750 530 Weight 118.705 kg Intake: IV 50 Rocephin 2 gm In Dextrose 5% in 50 Water 50 ml @ 100 mls/hr IV DAILY [facility] Rx#:[id number] Oral 480 Output: Void Amount 550 750 Other: Meal Breakfast Percent of Meal Consumed 100% Feeding Ability Independent Urine Appearance Clear Clear Clear Urine Color Bright Yellow Dark Yellow Bright Yellow Urine Odor Normal Stool Size Small Stool Color Brown Stool Consistency Normal for Patient # Voids 1 1 # Bowel Movements 1 Exam: Alert oriented On 10 L oxygen Labored breathing on minimal exertion No lymphedema No anxiety OBJ DATA Labs CBC & Chem 7: 02/10/20 04:57 02/10/20 04:57 Labs: Abnormal Lab Results 02/10/20 02/10/20 02/10/20 04:57 04:57 04:57 Hgb Hct 40.2 L Neut % (Auto) 88.5 H Lymph % (Auto) 6.1 L Lymph # (Auto) 0.61 L Absolute Neutrophils 8.92 H D-Dimer < 0.27 L Glucose 111 H Calcium 8.4 L 02/09/20 02/09/20 02/09/20 04:37 04:37 04:36 Hgb 13.4 L Hct 39.6 L Neut % (Auto) 87.8 H Lymph % (Auto) 7.0 L Lymph # (Auto) 0.65 L Absolute Neutrophils 8.11 H D-Dimer < 0.27 L Glucose 109 H Calcium 8.0 L 02/08/20 02/08/20 02/08/20 08:56 08:56 04:41 Hgb 13.4 L Hct 40.2 L 39.7 L Neut % (Auto) 87.9 H 86.1 H Lymph % (Auto) 7.3 L 7.0 L Lymph # (Auto) 0.63 L 0.50 L Absolute Neutrophils D-Dimer < 0.27 L Glucose Calcium 02/07/20 05:13 Hgb Hct Neut % (Auto) 84.9 H Lymph % (Auto) 8.0 L Lymph # (Auto) 0.68 L Absolute Neutrophils D-Dimer Glucose Calcium Meds: Medications Acetaminophen (Tylenol) 650 mg PO Q6HP PRN PRN Reason: PAIN/FEVER > 101 Hydrocodone Bitart/Acetaminophen ([place] 5/325mg) 1 tab PO Q4HP PRN PRN Reason: PAIN LEVEL 3-6 Albuterol/Ipratropium (Duoneb) 3 ml NEB Q4HP PRN PRN Reason: Shortness Of Breath Dexamethasone (Decadron) 6 mg PO DAILY [facility] Last Admin: 02/10/20 08:25 Dose: 6 mg Documented by: Dextrose (Dextrose 50%) 0 ml IV UD PRN PRN Reason: Hypoglycemia Diagnostic Test (Pha) (Accu-Chek) 1 each FS ACHS [facility] Last Admin: 02/10/20 12:07 Dose: 1 each Documented by: Diphenhydramine HCl (Benadryl) 25 mg PO HSP PRN PRN Reason: Insomnia Docusate Sodium (Colace) 100 mg PO BID [facility] Last Admin: 02/10/20 08:12 Dose: 100 mg Documented by: Glucose (Insta-Glucose) 15 gm PO PRN PRN PRN Reason: Hypoglycemia Ceftriaxone Sodium 2 gm/ (Dextrose) 50 mls @ 100 mls/hr IV DAILY [facility]; Protocol Last Infusion: 02/10/20 08:44 Dose: Infused Documented by: Magnesium Sulfate (Magnesium Sulfate) 2 gm in 50 mls @ 50 mls/hr IV UD PRN PRN Reason: Magnesium </= 1.6 Potassium Chloride 40 meq/ (Dextrose) 520 mls @ 130 mls/hr IV UD PRN PRN Reason: Potassium < 3 REMDESIVIR 100 mg/ Sodium (Chloride) 250 mls @ 500 mls/hr IV DAILY [facility] Stop: 02/14/20 09:29 Last Admin: 02/10/20 10:52 Dose: 500 mls/hr Documented by: Insulin Human Lispro (Humalog) 0 unit SQ ACHS [facility]; Protocol Last Admin: 02/10/20 12:07 Dose: Not Given Documented by: Lorazepam (Ativan) 0.5 mg IV Q6HP PRN PRN Reason: Anxiety Melatonin (Melatonin 3mg Tablet) 3 mg PO QHS [facility] Last Admin: 02/09/20 20:15 Dose: Not Given Documented by: Omeprazole (Prilosec) 20 mg PO HS [facility] Last Admin: 02/09/20 20:15 Dose: 20 mg Documented by: Ondansetron HCl (Zofran) 4 mg IV Q4HP PRN PRN Reason: Nausea And Vomiting Polyethylene Glycol (Miralax) 17 gm PO DAILYP PRN PRN Reason: Constipation Potassium Chloride (Kdur) 40 meq PO UD PRN PRN Reason: Potssium is 3-3.5 Potassium Chloride (Kdur) 40 meq PO UD PRN PRN Reason: Potassium < 3 Potassium Chloride (Potassium Chloride) 20 meq PO BIDCC PRN PRN Reason: K <3.6 Rivaroxaban (Xarelto) 10 mg PO QDAY [facility] Last Admin: 02/10/20 08:23 Dose: 10 mg Documented by: Senna (Senokot) 2 tab PO DAILYP PRN PRN Reason: Constipation Sodium Chloride (Saline Flush) 10 ml IV Q8 [facility] Last Admin: 02/10/20 05:09 Dose: 10 ml Documented by: Tamsulosin HCl (Flomax) 0.4 mg PO BID [facility] Last Admin: 02/10/20 08:12 Dose: 0.4 mg Documented by: Zinc Sulfate (Zinc) 50 mg PO DAILY [facility] Last Admin: 02/10/20 08:24 Dose: 50 mg Documented by: ABG Interpretation ABG results: 02/04/20 14:14 ABG Methemoglobin 0.3 L VBG pH 7.42 VBG pCO2 37.0 L VBG pO2 70.6 H VBG HCO3 23.2 L VBG Total CO2 24.4 L VBG O2 Saturation 89.2 H VBG Base Excess -1 A/P Narrative A/P Narrative: * *COVID PNA -multifocal, superimposed on underlying ILD: On remdesivir/dexamethasone. Immunocompromise state. -CTA no PE but b/l groundglass infiltrates -RVP/Myco/Strep neg, SC neg * *Acute Hypoxic Respiratory failure (2L@home): Improved oxygenation over last 24 hours on NIV 35% FiO2. * *History of interstitial lung disease/COPD/bronchiectasis (on 2L@home): Follows with Dr. Benítez * *DAMARIS -currently on noninvasive mechanical ventilation * *DM: A1c 6.2 * *h/o diastolic CHF: * *Rheumatoid arthritis/fibromyalgia: Follows with Dr. 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
[2020-02-10] MEDS: OMEPRAZOLE 20 MG CAPSULE PO SCH (21:05)
[2020-02-10] MEDS: MELATONIN 3 MG TABLET PO SCH (22:03)
[2020-02-11] MEDS: 0.9 % SODIUM CHLORIDE 10 ML SYRINGE IV SCH ×3 (05:22→20:17)
[2020-02-11 07:07] LABS: Basophils # (Auto) 0.02 K/mcL (0.00-0.20); Basophils % (Auto) 0.2 % (0.0-2.0); Eosinophils # (Auto) 0.04 K/mcL (0.00-0.70); Eosinophils % (Auto) 0.4 % (0.0-7.0); Hematocrit 40.2 % (41.0-55.0); Hemoglobin 13.5 g/dL (13.5-16.5); Lymphocytes # (Auto) 0.74 K/mcL (1.50-4.80); Lymphocytes % (Auto) 7.7 % (15.0-49.0); Mean Cell Volume 81.4 fL (80.0-100.0); Mean Corpuscular HGB Conc 33.6 g/dL (31.0-36.0); Mean Platelet Volume 9.2 fL (7.4-10.4); Monocytes % (Auto) 7.3 % (1.0-12.0); Neutrophils % (Auto) 84.4 % (38.0-78.0); Platelet Count 359 K/mcL (140-440); RBC 4.94 M/mcL (4.50-5.90); Red Cell Distribution Width 13.6 % (11.5-14.5); WBC 9.7 K/mcL (4.5-11.0)
[2020-02-11] MEDS: INSULIN LISPRO 1 UNIT/0.01 ML UNIT SQ SCH ×4 (07:47→20:16)
[2020-02-11 08:02] LABS: ALT/SGPT 18 U/L (<40); AST/SGOT 14 U/L (<40); Albumin 3.2 gm/dL (3.2-5.2); Albumin/Globulin Ratio 1.1 (1.0-2.3); Alkaline Phosphatase 52 U/L (39-117); Bilirubin,Direct 0.2 mg/dL (<0.3); Bilirubin,Total 0.8 mg/dL (0.1-1.0); Blood Urea Nitrogen 16 mg/dL (8-23); Calcium 8.2 mg/dL (8.6-10.4); Carbon Dioxide 24 mmol/L (22-30); Chloride 100 mmol/L (96-108); Globulin 2.8 gm/dL (2.2-3.7); Glomerular Filtration Rate 100; Glucose 96 mg/dL (70-105); Lactate Dehydrogenase 174 U/L (135-225); Phosphorous 3.7 mg/dL (2.5-4.5); Triglycerides 59 mg/dL (<150); Uric Acid 4.5 mg/dL (2.5-8.0)
[2020-02-11] MEDS: cefTRIAXone 2 GM in DEXTROSE 5% IN WATER 50 ML IV SCH (08:29)
[2020-02-11] MEDS: TAMSULOSIN 0.4 MG CAPSULE PO SCH ×2 (08:30→19:40)
[2020-02-11] MEDS: DEXAMETHASONE 4 MG TABLET PO SCH (08:35)
[2020-02-11] MEDS: RIVAROXABAN 20 MG TABLET PO SCH (08:35)
[2020-02-11] MEDS: ZINC SULFATE 50 MG CAPSULE PO SCH (08:35)
[2020-02-11] MEDS: DOCUSATE SODIUM 100 MG CAPSULE PO SCH ×2 (08:37→19:41)
[2020-02-11] MEDS: REMDESIVIR 100 MG in 0.9 % SODIUM CHLORIDE 250 ML IV SCH (09:48)
--- NOTE | 2020-02-11 10:01 | XRay Report ---
HISTORY: Follow-up pneumonia FINDINGS: There are severe alveolar infiltrates throughout both lungs. Lung volumes are normal. There is no pleural effusion. Heart size is upper limits of normal. Comparison with the prior exam from 02/08/20 shows no significant change. IMPRESSION: Stable severe bilateral pneumonia Interpreted and Authenticated by: Balaji Louie 02/11/20
--- NOTE | 2020-02-11 14:07 | Internal Med Progress Note ---
SUBJECTIVE Subjective Patient information: Note initiated : 02/11/20 at 2:04 pm Service Date, if different from initiated Date: [] Patient: Hakeem Smart 64 y/o M admitted on 02/04/20 for shortness of breath. Chief Complaint: [] Interval history: Presents to the ED feeling sick for 1 week with fever chills body aches. In about 3 days ago start developing shortness of breath which is continue to worsen. His tested positive yesterday because she had similar symptoms so he went to his PCP tested in the office today which showed positive for Covid. He is on 2 L of oxygen chronically. He got pneumonia beginning of the year and has been on it since. Follows Dr. Benítez for interstitial lung disease as well as bronchiectasis In the ED he required 3 L of oxygen. He has pleuritic chest pain. He has occasional productive cough which is mostly chronic CTA was done which showed no PE but did show bilateral groundglass infiltrates. 02/04 Poor sleep last night. Has occasional cough. Has shortness of breath, his chest is less tight. 3 L of oxygen 02/05 Patient quite labored when he gets up to the bathroom and even when he was eating. Oxygen at 3 L on his sitting in chair resting but needs increased when he exerts himself. Minimal cough. Shortness of breath wax and wanes. 02/06 Patient had episode last night where he became hypoxic and coughing quite a bit. Eventually calm down fell asleep feels better this morning. Has no reserve when he starts to cough for exert himself. Inflammatory markers improving. 12:30 PM responded to nurse call with increasing shortness of breath. Stat ABGs 7.49/35/63 on 10 L oxygen. Patient started on BiPAP. Discussed clinical picture. Reviewed imaging from this morning with multifocal pneumonia. Case discussed with patient, explained that he may require ventilatory support if continues to deteriorate and may need transfer to tertiary center. Patient improves of plan. Continue remdesivir/steroid. Serial ABG/chest imaging. Noninvasive mechanical ventilation 02/07-patient doing well on noninvasive ventilation. ABG improved to 7.4 / on 60% FiO2 BiPAP. This morning transiently off BiPAP. Able to talk in full sentences. Feels better. Continue remdesivir/dexamethasone. On empiric antibiotic coverage on Rocephin, follow inflammatory/coagulation monitor. Serial chest imaging/ABGs. 02/08-patient on 10 L oxygen status quo, CPAP at night. On remdesivir/steroid. On rivaroxaban. No overnight fever chills. White count 9.2. D-dimer 0.27 CRP 2.2, procalcitonin 0.06. 02/09-patient doing a lot better. No overnight events. Now on 35% noninvasive ventilation. Plan to extend remdesivir to 10-day treatment. Continue serial chest imaging/pulmonary toilet. White count 10.1. On empiric extended antibiotic coverage in light of immunosuppressed state. Continue Covid precautions 02/10-patient status quo currently on 10 L oxygen. Overnight on CPAP 35% FiO2. Feels slightly down and gloomy this morning as unable to see family. However has been able to communicate with family on phone. Denies fever chills. Minimal activity leads to increasing shortness of breath. Good appetite. No concerns per nursing staff. No telemetry events. Labs and hemodynamics stable. Constitutional Vitals: Vital Signs Temp Pulse Resp BP Pulse Ox 97.1 F 57 L 21 119/65 91 02/11/20 08:02 02/11/20 08:02 02/11/20 12:01 02/11/20 12:01 02/11/20 12:01 Period Temp Pulse Resp BP Sys/Estes Pulse Ox Last 24 Hr 97.1 F-98.2 F 50-71 12-21 94-135/65-84 90-99 Intake and Output 02/11/20 02/11/20 02/11/20 05:59 13:59 21:59 Intake Total 50 Output Total 950 Balance -950 50 Alert oriented Nonlabored breathing No anxiety Nondistended abdomen Intake & Output: Intake & Output 02/11/20 02/11/20 02/11/20 05:59 13:59 21:59 Intake Total 50 Output Total 950 Balance -950 50 Intake: IV 50 Rocephin 2 gm In Dextrose 5% in 50 Water 50 ml @ 100 mls/hr IV DAILY [facility] Rx#:[id number] Output: Void Amount 950 Other: Urine Appearance Clear Urine Color Bright Yellow Urine Odor Normal Exam: Alert oriented On 10 L oxygen Labored breathing on minimal exertion No lymphedema No anxiety OBJ DATA Labs CBC & Chem 7: 02/11/20 05:21 02/11/20 05:21 Labs: Abnormal Lab Results 02/11/20 02/11/20 02/10/20 05:21 05:21 04:57 Hgb Hct 40.2 L Neut % (Auto) 84.4 H Lymph % (Auto) 7.7 L Lymph # (Auto) 0.74 L Absolute Neutrophils 8.15 H D-Dimer < 0.27 L Glucose Calcium 8.2 L 02/10/20 02/10/20 02/09/20 04:57 04:57 04:37 Hgb Hct 40.2 L Neut % (Auto) 88.5 H Lymph % (Auto) 6.1 L Lymph # (Auto) 0.61 L Absolute Neutrophils 8.92 H D-Dimer < 0.27 L Glucose 111 H Calcium 8.4 L 02/09/20 02/09/20 04:37 04:36 Hgb 13.4 L Hct 39.6 L Neut % (Auto) 87.8 H Lymph % (Auto) 7.0 L Lymph # (Auto) 0.65 L Absolute Neutrophils 8.11 H D-Dimer Glucose 109 H Calcium 8.0 L Meds: Medications Acetaminophen (Tylenol) 650 mg PO Q6HP PRN PRN Reason: PAIN/FEVER > 101 Hydrocodone Bitart/Acetaminophen ([place] 5/325mg) 1 tab PO Q4HP PRN PRN Reason: PAIN LEVEL 3-6 Albuterol/Ipratropium (Duoneb) 3 ml NEB Q4HP PRN PRN Reason: Shortness Of Breath Dexamethasone (Decadron) 6 mg PO DAILY [facility] Last Admin: 02/11/20 08:35 Dose: 6 mg Documented by: Dextrose (Dextrose 50%) 0 ml IV UD PRN PRN Reason: Hypoglycemia Diagnostic Test (Pha) (Accu-Chek) 1 each FS ACHS [facility] Last Admin: 02/11/20 12:52 Dose: 1 each Documented by: Diphenhydramine HCl (Benadryl) 25 mg PO HSP PRN PRN Reason: Insomnia Docusate Sodium (Colace) 100 mg PO BID [facility] Last Admin: 02/11/20 08:37 Dose: 100 mg Documented by: Glucose (Insta-Glucose) 15 gm PO PRN PRN PRN Reason: Hypoglycemia Ceftriaxone Sodium 2 gm/ (Dextrose) 50 mls @ 100 mls/hr IV DAILY [facility]; Protocol Last Infusion: 02/11/20 08:59 Dose: Infused Documented by: Magnesium Sulfate (Magnesium Sulfate) 2 gm in 50 mls @ 50 mls/hr IV UD PRN PRN Reason: Magnesium </= 1.6 Potassium Chloride 40 meq/ (Dextrose) 520 mls @ 130 mls/hr IV UD PRN PRN Reason: Potassium < 3 REMDESIVIR 100 mg/ Sodium (Chloride) 250 mls @ 500 mls/hr IV DAILY [facility] Stop: 02/14/20 09:29 Last Admin: 02/11/20 09:48 Dose: 500 mls/hr Documented by: Insulin Human Lispro (Humalog) 0 unit SQ ACHS [facility]; Protocol Last Admin: 02/11/20 12:52 Dose: Not Given Documented by: Lorazepam (Ativan) 0.5 mg IV Q6HP PRN PRN Reason: Anxiety Melatonin (Melatonin 3mg Tablet) 3 mg PO QHS [facility] Last Admin: 02/10/20 22:03 Dose: Not Given Documented by: Omeprazole (Prilosec) 20 mg PO HS [facility] Last Admin: 02/10/20 21:05 Dose: 20 mg Documented by: Ondansetron HCl (Zofran) 4 mg IV Q4HP PRN PRN Reason: Nausea And Vomiting Polyethylene Glycol (Miralax) 17 gm PO DAILYP PRN PRN Reason: Constipation Potassium Chloride (Kdur) 40 meq PO UD PRN PRN Reason: Potssium is 3-3.5 Potassium Chloride (Kdur) 40 meq PO UD PRN PRN Reason: Potassium < 3 Potassium Chloride (Potassium Chloride) 20 meq PO BIDCC PRN PRN Reason: K <3.6 Rivaroxaban (Xarelto) 10 mg PO QDAY [facility] Last Admin: 02/11/20 08:35 Dose: 10 mg Documented by: Senna (Senokot) 2 tab PO DAILYP PRN PRN Reason: Constipation Sodium Chloride (Saline Flush) 10 ml IV Q8 [facility] Last Admin: 02/11/20 05:22 Dose: 10 ml Documented by: Tamsulosin HCl (Flomax) 0.4 mg PO BID [facility] Last Admin: 02/11/20 08:30 Dose: 0.4 mg Documented by: Zinc Sulfate (Zinc) 50 mg PO DAILY [facility] Last Admin: 02/11/20 08:35 Dose: 50 mg Documented by: ABG Interpretation ABG results: 02/04/20 14:14 ABG Methemoglobin 0.3 L VBG pH 7.42 VBG pCO2 37.0 L VBG pO2 70.6 H VBG HCO3 23.2 L VBG Total CO2 24.4 L VBG O2 Saturation 89.2 H VBG Base Excess -1 A/P Narrative A/P Narrative: * COVID 19 PNA -multifocal, superimposed on underlying ILD: On rem desivir/dexamethasone. Immunocompromised state. Interval chest imaging stable bilateral pneumonia * *Acute Hypoxic Respiratory failure (2L@home): Improved oxygenation over last 24 hours on NIV 35% FiO2 and 10 L oxygen nasal cannula when off noninvasive ventilation. * *History of interstitial lung disease/COPD/bronchiectasis (on 2L@home): Follows with Dr. Benítez * *DAMARIS -on CPAP mode at night * *DM: A1c 6.2 * *h/o diastolic CHF: * *Rheumatoid arthritis/fibromyalgia: Follows with Dr. 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
[2020-02-11] MEDS: OMEPRAZOLE 20 MG CAPSULE PO SCH (19:41)
[2020-02-11] MEDS: MELATONIN 3 MG TABLET PO SCH (20:17)
[2020-02-12] MEDS: 0.9 % SODIUM CHLORIDE 10 ML SYRINGE IV SCH ×3 (05:24→20:21)
[2020-02-12 06:33] LABS: Basophils # (Auto) 0.01 K/mcL (0.00-0.20); Basophils % (Auto) 0.1 % (0.0-2.0); Eosinophils # (Auto) 0.06 K/mcL (0.00-0.70); Eosinophils % (Auto) 0.7 % (0.0-7.0); Hematocrit 41.3 % (41.0-55.0); Hemoglobin 13.7 g/dL (13.5-16.5); Lymphocytes # (Auto) 0.72 K/mcL (1.50-4.80); Lymphocytes % (Auto) 8.1 % (15.0-49.0); Mean Cell Volume 82.8 fL (80.0-100.0); Mean Corpuscular HGB Conc 33.2 g/dL (31.0-36.0); Mean Platelet Volume 9.1 fL (7.4-10.4); Monocytes # (Auto) 0.72 K/mcL (0.10-0.90); Monocytes % (Auto) 8.1 % (1.0-12.0); Platelet Count 351 K/mcL (140-440); RBC 4.99 M/mcL (4.50-5.90); Red Cell Distribution Width 13.6 % (11.5-14.5); WBC 8.9 K/mcL (4.5-11.0)
[2020-02-12 07:25] LABS: ALT/SGPT 19 U/L (<40); AST/SGOT 13 U/L (<40); Albumin 3.1 gm/dL (3.2-5.2); Alkaline Phosphatase 57 U/L (39-117); Bilirubin,Direct 0.2 mg/dL (<0.3); Bilirubin,Total 0.8 mg/dL (0.1-1.0); Blood Urea Nitrogen 16 mg/dL (8-23); Calcium 8.3 mg/dL (8.6-10.4); Carbon Dioxide 26 mmol/L (22-30); Chloride 101 mmol/L (96-108); Glomerular Filtration Rate 94; Glucose 96 mg/dL (70-105); Lactate Dehydrogenase 191 U/L (135-225); Triglycerides 50 mg/dL (<150); Uric Acid 4.5 mg/dL (2.5-8.0)
[2020-02-12] MEDS: INSULIN LISPRO 1 UNIT/0.01 ML UNIT SQ SCH (07:30)
[2020-02-12] MEDS: cefTRIAXone 2 GM in DEXTROSE 5% IN WATER 50 ML IV SCH (09:55)
[2020-02-12] MEDS: REMDESIVIR 100 MG in 0.9 % SODIUM CHLORIDE 250 ML IV SCH (09:55)
[2020-02-12] MEDS: TAMSULOSIN 0.4 MG CAPSULE PO SCH ×2 (09:56→20:19)
[2020-02-12] MEDS: DOCUSATE SODIUM 100 MG CAPSULE PO SCH ×2 (09:56→20:19)
[2020-02-12] MEDS: RIVAROXABAN 20 MG TABLET PO SCH (09:56)
[2020-02-12] MEDS: DEXAMETHASONE 4 MG TABLET PO SCH (09:56)
[2020-02-12] MEDS: ZINC SULFATE 50 MG CAPSULE PO SCH (09:56)
--- NOTE | 2020-02-12 10:45 | Internal Med Progress Note ---
SUBJECTIVE Subjective Patient information: Note initiated : 02/12/20 at 10:42 am Service Date, if different from initiated Date: [] Patient: Hakeem Smart 64 y/o M admitted on 02/04/20 for shortness of breath. Chief Complaint: [] Interval history: Presents to the ED feeling sick for 1 week with fever chills body aches. In about 3 days ago start developing shortness of breath which is continue to worsen. His tested positive yesterday because she had similar symptoms so he went to his PCP tested in the office today which showed positive for Covid. He is on 2 L of oxygen chronically. He got pneumonia beginning of the year and has been on it since. Follows Dr. Benítez for interstitial lung disease as well as bronchiectasis In the ED he required 3 L of oxygen. He has pleuritic chest pain. He has occasional productive cough which is mostly chronic CTA was done which showed no PE but did show bilateral groundglass infiltrates. 02/04 Poor sleep last night. Has occasional cough. Has shortness of breath, his chest is less tight. 3 L of oxygen 02/05 Patient quite labored when he gets up to the bathroom and even when he was eating. Oxygen at 3 L on his sitting in chair resting but needs increased when he exerts himself. Minimal cough. Shortness of breath wax and wanes. 02/06 Patient had episode last night where he became hypoxic and coughing quite a bit. Eventually calm down fell asleep feels better this morning. Has no reserve when he starts to cough for exert himself. Inflammatory markers improving. 12:30 PM responded to nurse call with increasing shortness of breath. Stat ABGs 7.49/35/63 on 10 L oxygen. Patient started on BiPAP. Discussed clinical picture. Reviewed imaging from this morning with multifocal pneumonia. Case discussed with patient, explained that he may require ventilatory support if continues to deteriorate and may need transfer to tertiary center. Patient improves of plan. Continue remdesivir/steroid. Serial ABG/chest imaging. Noninvasive mechanical ventilation 02/07-patient doing well on noninvasive ventilation. ABG improved to 7.4 / on 60% FiO2 BiPAP. This morning transiently off BiPAP. Able to talk in full sentences. Feels better. Continue remdesivir/dexamethasone. On empiric antibiotic coverage on Rocephin, follow inflammatory/coagulation monitor. Serial chest imaging/ABGs. 02/08-patient on 10 L oxygen status quo, CPAP at night. On remdesivir/steroid. On rivaroxaban. No overnight fever chills. White count 9.2. D-dimer 0.27 CRP 2.2, procalcitonin 0.06. 02/09-patient doing a lot better. No overnight events. Now on 35% noninvasive ventilation. Plan to extend remdesivir to 10-day treatment. Continue serial chest imaging/pulmonary toilet. White count 10.1. On empiric extended antibiotic coverage in light of immunosuppressed state. Continue Covid precautions 02/10-patient status quo currently on 10 L oxygen. Overnight on CPAP 35% FiO2. Feels slightly down and gloomy this morning as unable to see family. However has been able to communicate with family on phone. Denies fever chills. Minimal activity leads to increasing shortness of breath. Good appetite. No concerns per nursing staff. No telemetry events. Labs and hemodynamics stable. 02/11-patient clinically improved. No overnight events. No additional concerns per nursing staff. No fever chills nausea vomiting. Now down to 6 L oxygen. Feels a lot better. Stable labs and hemodynamics. White count 8.9. On remdesivir day 8. No telemetry events. Continue therapies as tolerated Constitutional Vitals: .Vital Signs Temp Pulse Resp BP Pulse Ox 96.9 F L 57 L 19 137/79 93 02/12/20 04:01 02/11/20 08:02 02/12/20 08:02 02/12/20 08:02 02/12/20 08:02 Period Temp Pulse Resp BP Sys/Estes Pulse Ox Last 24 Hr 96.9 F-97.6 F 10- 119-137/65-97 91-98 Intake and Output 02/11/20 02/12/20 02/12/20 21:59 05:59 13:59 Intake Total 1030 Output Total 250 1500 700 Balance 780 -1500 -700 Weight 117.889 kg Alert oriented No anxiety On 6 L oxygen No telemetry events Intake & Output: Intake & Output 02/11/20 02/12/20 02/12/20 21:59 05:59 13:59 Intake Total 1030 Output Total 250 1500 700 Balance 780 -1500 -700 Weight 117.889 kg Intake: Nourishment/Supplement quantity 250 (ml) Oral 780 Output: Void Amount 250 1500 700 Other: Meal Dinner Percent of Meal Consumed 100% Feeding Ability Independent Nourishment/Supplement name brittani Urine Appearance Clear Clear Clear Urine Color Dark Yellow Bright Yellow Dark Yellow Urine Odor Normal Stool Size Moderate Stool Color Brown Stool Consistency Normal for Patient OBJ DATA Labs CBC & Chem 7: 02/12/20 05:51 02/12/20 05:51 Labs: Abnormal Lab Results 02/12/20 02/12/20 02/11/20 05:51 05:51 05:21 Hct 40.2 L Neut % (Auto) 83.0 H 84.4 H Lymph % (Auto) 8.1 L 7.7 L Lymph # (Auto) 0.72 L 0.74 L Absolute Neutrophils 8.15 H D-Dimer Glucose Calcium 8.3 L Albumin 3.1 L 02/11/20 02/10/20 02/10/20 05:21 04:57 04:57 Hct 40.2 L Neut % (Auto) 88.5 H Lymph % (Auto) 6.1 L Lymph # (Auto) 0.61 L Absolute Neutrophils 8.92 H D-Dimer < 0.27 L Glucose Calcium 8.2 L Albumin 02/10/20 04:57 Hct Neut % (Auto) Lymph % (Auto) Lymph # (Auto) Absolute Neutrophils D-Dimer Glucose 111 H Calcium 8.4 L Albumin Meds: Medications Acetaminophen (Tylenol) 650 mg PO Q6HP PRN PRN Reason: PAIN/FEVER > 101 Hydrocodone Bitart/Acetaminophen ([place] 5/325mg) 1 tab PO Q4HP PRN PRN Reason: PAIN LEVEL 3-6 Albuterol/Ipratropium (Duoneb) 3 ml NEB Q4HP PRN PRN Reason: Shortness Of Breath Dexamethasone (Decadron) 6 mg PO DAILY [facility] Last Admin: 02/12/20 09:56 Dose: 6 mg Documented by: Dextrose (Dextrose 50%) 0 ml IV UD PRN PRN Reason: Hypoglycemia Diphenhydramine HCl (Benadryl) 25 mg PO HSP PRN PRN Reason: Insomnia Docusate Sodium (Colace) 100 mg PO BID [facility] Last Admin: 02/12/20 09:56 Dose: 100 mg Documented by: Glucose (Insta-Glucose) 15 gm PO PRN PRN PRN Reason: Hypoglycemia Ceftriaxone Sodium 2 gm/ (Dextrose) 50 mls @ 100 mls/hr IV DAILY [facility]; Protocol Last Admin: 02/12/20 09:55 Dose: 100 mls/hr Documented by: Magnesium Sulfate (Magnesium Sulfate) 2 gm in 50 mls @ 50 mls/hr IV UD PRN PRN Reason: Magnesium </= 1.6 Potassium Chloride 40 meq/ (Dextrose) 520 mls @ 130 mls/hr IV UD PRN PRN Reason: Potassium < 3 REMDESIVIR 100 mg/ Sodium (Chloride) 250 mls @ 500 mls/hr IV DAILY [facility] Stop: 02/14/20 09:29 Last Admin: 02/12/20 09:55 Dose: 500 mls/hr Documented by: Lorazepam (Ativan) 0.5 mg IV Q6HP PRN PRN Reason: Anxiety Melatonin (Melatonin 3mg Tablet) 3 mg PO QHS [facility] Last Admin: 02/11/20 20:17 Dose: Not Given Documented by: Omeprazole (Prilosec) 20 mg PO HS [facility] Last Admin: 02/11/20 19:41 Dose: 20 mg Documented by: Ondansetron HCl (Zofran) 4 mg IV Q4HP PRN PRN Reason: Nausea And Vomiting Polyethylene Glycol (Miralax) 17 gm PO DAILYP PRN PRN Reason: Constipation Potassium Chloride (Kdur) 40 meq PO UD PRN PRN Reason: Potssium is 3-3.5 Potassium Chloride (Kdur) 40 meq PO UD PRN PRN Reason: Potassium < 3 Potassium Chloride (Potassium Chloride) 20 meq PO BIDCC PRN PRN Reason: K <3.6 Rivaroxaban (Xarelto) 10 mg PO QDAY [facility] Last Admin: 02/12/20 09:56 Dose: 10 mg Documented by: Senna (Senokot) 2 tab PO DAILYP PRN PRN Reason: Constipation Sodium Chloride (Saline Flush) 10 ml IV Q8 [facility] Last Admin: 02/12/20 05:24 Dose: 10 ml Documented by: Tamsulosin HCl (Flomax) 0.4 mg PO BID [facility] Last Admin: 02/12/20 09:56 Dose: 0.4 mg Documented by: Zinc Sulfate (Zinc) 50 mg PO DAILY [facility] Last Admin: 02/12/20 09:56 Dose: 50 mg Documented by: ABG Interpretation ABG results: 02/04/20 14:14 ABG Methemoglobin 0.3 L VBG pH 7.42 VBG pCO2 37.0 L VBG pO2 70.6 H VBG HCO3 23.2 L VBG Total CO2 24.4 L VBG O2 Saturation 89.2 H VBG Base Excess -1 A/P Narrative A/P Narrative: * COVID 19 PNA -multifocal, superimposed on underlying ILD: Continuing remdesivir/dexamethasone. Underlying immunocompromised state. Interval chest imaging stable bilateral pneumonia * *Acute Hypoxic Respiratory failure (2L@home): Improved oxygenation over last 24 hours now requiring 6 L oxygen low flow * *History of interstitial lung disease/COPD/bronchiectasis (on 2L@home): Follows with Dr. Benítez * *DAMARIS -on CPAP mode at night * *DM: A1c 6.2 * *h/o diastolic CHF: * *Rheumatoid arthritis/fibromyalgia: Follows with Dr. 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
[2020-02-12] MEDS: OMEPRAZOLE 20 MG CAPSULE PO SCH (20:19)
[2020-02-12] MEDS: MELATONIN 3 MG TABLET PO SCH (20:20)
[2020-02-13] MEDS: 0.9 % SODIUM CHLORIDE 10 ML SYRINGE IV SCH ×4 (05:23→21:04)
[2020-02-13] MEDS: DOCUSATE SODIUM 100 MG CAPSULE PO SCH ×2 (08:40→21:04)
[2020-02-13] MEDS: TAMSULOSIN 0.4 MG CAPSULE PO SCH ×2 (08:40→21:04)
[2020-02-13] MEDS: cefTRIAXone 2 GM in DEXTROSE 5% IN WATER 50 ML IV SCH (08:40)
[2020-02-13] MEDS: DEXAMETHASONE 4 MG TABLET PO SCH (08:44)
[2020-02-13] MEDS: RIVAROXABAN 20 MG TABLET PO SCH (08:44)
[2020-02-13] MEDS: ZINC SULFATE 50 MG CAPSULE PO SCH (08:44)
[2020-02-13 09:36] LABS: ALT/SGPT 22 U/L (<40); AST/SGOT 15 U/L (<40); Albumin 3.2 gm/dL (3.2-5.2); Alkaline Phosphatase 60 U/L (39-117); Bilirubin,Direct 0.2 mg/dL (<0.3); Bilirubin,Total 0.9 mg/dL (0.1-1.0); Blood Urea Nitrogen 13 mg/dL (8-23); Calcium 8.4 mg/dL (8.6-10.4); Carbon Dioxide 24 mmol/L (22-30); Chloride 97 mmol/L (96-108); Globulin 3.2 gm/dL (2.2-3.7); Glomerular Filtration Rate 100; Glucose 88 mg/dL (70-105); Lactate Dehydrogenase 181 U/L (135-225); Phosphorous 3.7 mg/dL (2.5-4.5); Triglycerides 48 mg/dL (<150); Uric Acid 4.4 mg/dL (2.5-8.0)
[2020-02-13] MEDS: REMDESIVIR 100 MG in 0.9 % SODIUM CHLORIDE 250 ML IV SCH (10:00)
--- NOTE | 2020-02-13 10:58 | Internal Med Progress Note ---
SUBJECTIVE Subjective Patient information: Note initiated : 02/13/20 at 10:56 am Service Date, if different from initiated Date: [] Patient: Hakeem Smart 64 y/o M admitted on 02/04/20 for shortness of breath. Chief Complaint: [] Interval history: Presents to the ED feeling sick for 1 week with fever chills body aches. In about 3 days ago start developing shortness of breath which is continue to worsen. His tested positive yesterday because she had similar symptoms so he went to his PCP tested in the office today which showed positive for Covid. He is on 2 L of oxygen chronically. He got pneumonia beginning of the year and has been on it since. Follows Dr. Benítez for interstitial lung disease as well as bronchiectasis In the ED he required 3 L of oxygen. He has pleuritic chest pain. He has occasional productive cough which is mostly chronic CTA was done which showed no PE but did show bilateral groundglass infiltrates. 02/04 Poor sleep last night. Has occasional cough. Has shortness of breath, his chest is less tight. 3 L of oxygen 02/05 Patient quite labored when he gets up to the bathroom and even when he was eating. Oxygen at 3 L on his sitting in chair resting but needs increased when he exerts himself. Minimal cough. Shortness of breath wax and wanes. 02/06 Patient had episode last night where he became hypoxic and coughing quite a bit. Eventually calm down fell asleep feels better this morning. Has no reserve when he starts to cough for exert himself. Inflammatory markers improving. 12:30 PM responded to nurse call with increasing shortness of breath. Stat ABGs 7.49/35/63 on 10 L oxygen. Patient started on BiPAP. Discussed clinical picture. Reviewed imaging from this morning with multifocal pneumonia. Case discussed with patient, explained that he may require ventilatory support if continues to deteriorate and may need transfer to tertiary center. Patient improves of plan. Continue remdesivir/steroid. Serial ABG/chest imaging. Noninvasive mechanical ventilation 02/07-patient doing well on noninvasive ventilation. ABG improved to 7.4 / on 60% FiO2 BiPAP. This morning transiently off BiPAP. Able to talk in full sentences. Feels better. Continue remdesivir/dexamethasone. On empiric antibiotic coverage on Rocephin, follow inflammatory/coagulation monitor. Serial chest imaging/ABGs. 02/08-patient on 10 L oxygen status quo, CPAP at night. On remdesivir/steroid. On rivaroxaban. No overnight fever chills. White count 9.2. D-dimer 0.27 CRP 2.2, procalcitonin 0.06. 02/09-patient doing a lot better. No overnight events. Now on 35% noninvasive ventilation. Plan to extend remdesivir to 10-day treatment. Continue serial chest imaging/pulmonary toilet. White count 10.1. On empiric extended antibiotic coverage in light of immunosuppressed state. Continue Covid precautions 02/10-patient status quo currently on 10 L oxygen. Overnight on CPAP 35% FiO2. Feels slightly down and gloomy this morning as unable to see family. However has been able to communicate with family on phone. Denies fever chills. Minimal activity leads to increasing shortness of breath. Good appetite. No concerns per nursing staff. No telemetry events. Labs and hemodynamics stable. 02/11-patient clinically improved. No overnight events. No additional concerns per nursing staff. No fever chills nausea vomiting. Now down to 6 L oxygen. Feels a lot better. Stable labs and hemodynamics. White count 8.9. On remdesivir day 8. No telemetry events. Continue therapies as tolerated 02/12-patient doing a lot better. No overnight events. Currently on oxygen between 4 to 7 L. Gradually weaning. Feels a lot better. Anticipate discharge in 24 hours on home oxygen. Day 9 remdesivir/dexamethasone. Stable labs and hemodynamics. White count 8.9. On rivaroxaban for thrombosis prophylaxis. Constitutional Vitals: Vital Signs Temp Pulse Resp BP Pulse Ox 98.0 F 57 L 13 129/77 88 L 02/13/20 08:00 02/11/20 08:02 02/13/20 08:00 02/13/20 08:00 02/13/20 08:00 Period Temp Pulse Resp BP Sys/Estes Pulse Ox Last 24 Hr 97.0 F-98.0 F 10-18 112-147/68-91 88-98 Intake and Output 02/12/20 02/13/20 02/13/20 21:59 05:59 13:59 Intake Total 300 50 Output Total 750 1750 250 Balance -450 -1750 -200 Weight 117.072 kg Alert oriented Nonlabored breathing No anxiety Nondistended abdomen Intake & Output: Intake & Output 02/12/20 02/13/20 02/13/20 21:59 05:59 13:59 Intake Total 300 50 Output Total 750 1750 250 Balance -201 -2390 -200 Weight 117.072 kg Intake: IV 50 Rocephin 2 gm In Dextrose 5% in 50 Water 50 ml @ 100 mls/hr IV DAILY [facility] Rx#:[id number] Oral 300 Output: Void Amount 750 1750 250 Other: Meal Dinner snack Percent of Meal Consumed 100% Feeding Ability Independent Urine Appearance Clear Clear Clear Urine Color Bright Yellow Light Jenny Light Jenny Urine Odor Normal Exam: Alert oriented On 10 L oxygen Labored breathing on minimal exertion No lymphedema No anxiety OBJ DATA Labs CBC & Chem 7: 02/12/20 05:51 02/13/20 08:35 Labs: Abnormal Lab Results 02/13/20 02/12/20 02/12/20 08:35 05:51 05:51 Hct Neut % (Auto) 83.0 H Lymph % (Auto) 8.1 L Lymph # (Auto) 0.72 L Absolute Neutrophils Sodium 129 L Calcium 8.4 L 8.3 L Albumin 3.1 L 02/11/20 02/11/20 05:21 05:21 Hct 40.2 L Neut % (Auto) 84.4 H Lymph % (Auto) 7.7 L Lymph # (Auto) 0.74 L Absolute Neutrophils 8.15 H Sodium Calcium 8.2 L Albumin Meds: Medications Acetaminophen (Tylenol) 650 mg PO Q6HP PRN PRN Reason: PAIN/FEVER > 101 Hydrocodone Bitart/Acetaminophen ([place] 5/325mg) 1 tab PO Q4HP PRN PRN Reason: PAIN LEVEL 3-6 Albuterol/Ipratropium (Duoneb) 3 ml NEB Q4HP PRN PRN Reason: Shortness Of Breath Dexamethasone (Decadron) 6 mg PO DAILY [facility] Last Admin: 02/13/20 08:44 Dose: 6 mg Documented by: Dextrose (Dextrose 50%) 0 ml IV UD PRN PRN Reason: Hypoglycemia Diphenhydramine HCl (Benadryl) 25 mg PO HSP PRN PRN Reason: Insomnia Docusate Sodium (Colace) 100 mg PO BID [facility] Last Admin: 02/13/20 08:40 Dose: 100 mg Documented by: Glucose (Insta-Glucose) 15 gm PO PRN PRN PRN Reason: Hypoglycemia Ceftriaxone Sodium 2 gm/ (Dextrose) 50 mls @ 100 mls/hr IV DAILY [facility]; Protocol Last Infusion: 02/13/20 09:15 Dose: Infused Documented by: Magnesium Sulfate (Magnesium Sulfate) 2 gm in 50 mls @ 50 mls/hr IV UD PRN PRN Reason: Magnesium </= 1.6 Potassium Chloride 40 meq/ (Dextrose) 520 mls @ 130 mls/hr IV UD PRN PRN Reason: Potassium < 3 REMDESIVIR 100 mg/ Sodium (Chloride) 250 mls @ 500 mls/hr IV DAILY [facility] Stop: 02/14/20 09:29 Last Admin: 02/13/20 10:00 Dose: 500 mls/hr Documented by: Lorazepam (Ativan) 0.5 mg IV Q6HP PRN PRN Reason: Anxiety Melatonin (Melatonin 3mg Tablet) 3 mg PO QHS [facility] Last Admin: 02/12/20 20:20 Dose: Not Given Documented by: Omeprazole (Prilosec) 20 mg PO HS [facility] Last Admin: 02/12/20 20:19 Dose: 20 mg Documented by: Ondansetron HCl (Zofran) 4 mg IV Q4HP PRN PRN Reason: Nausea And Vomiting Polyethylene Glycol (Miralax) 17 gm PO DAILYP PRN PRN Reason: Constipation Potassium Chloride (Kdur) 40 meq PO UD PRN PRN Reason: Potssium is 3-3.5 Potassium Chloride (Kdur) 40 meq PO UD PRN PRN Reason: Potassium < 3 Potassium Chloride (Potassium Chloride) 20 meq PO BIDCC PRN PRN Reason: K <3.6 Rivaroxaban (Xarelto) 10 mg PO QDAY [facility] Last Admin: 02/13/20 08:44 Dose: 10 mg Documented by: Senna (Senokot) 2 tab PO DAILYP PRN PRN Reason: Constipation Sodium Chloride (Saline Flush) 10 ml IV Q8 [facility] Last Admin: 02/13/20 05:23 Dose: 10 ml Documented by: Tamsulosin HCl (Flomax) 0.4 mg PO BID [facility] Last Admin: 02/13/20 08:40 Dose: 0.4 mg Documented by: Zinc Sulfate (Zinc) 50 mg PO DAILY [facility] Last Admin: 02/13/20 08:44 Dose: 50 mg Documented by: ABG Interpretation ABG results: 02/04/20 14:14 ABG Methemoglobin 0.3 L VBG pH 7.42 VBG pCO2 37.0 L VBG pO2 70.6 H VBG HCO3 23.2 L VBG Total CO2 24.4 L VBG O2 Saturation 89.2 H VBG Base Excess -1 A/P Narrative A/P Narrative: * COVID 19 PNA -multifocal, superimposed on underlying ILD: Continuing remdesivir/dexamethasone day 11/27. Underlying immunocompromised state. Continue interval chest imaging, thrombosis prophylaxis on rivaroxaban * *Acute Hypoxic Respiratory failure (2L@home): Improved oxygenation over last 24 hours on 4 to 6 L oxygen. * *History of interstitial lung disease/COPD/bronchiectasis (on 2L@home): Follows with Dr. Benítez * *DAMARIS -stable on CPAP mode at night * *DM: A1c 6.2 * *h/o diastolic CHF: * *Rheumatoid arthritis/fibromyalgia: Follows with Dr. 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
[2020-02-13] MEDS ORDERED: IPRATROPIUM/ALBUTEROL 3 ML AMPUL.NEB NEB PRN (13:40)
[2020-02-13] MEDS ORDERED: POTASSIUM CHLORIDE 20 MEQ/15 ML ML PO PRN (13:40)
[2020-02-13] MEDS ORDERED: MAGNESIUM SULFATE 2 GM/50 ML BAG IV PRN (13:40)
[2020-02-13] MEDS ORDERED: ACETAMINOPHEN 325 MG TABLET PO PRN (13:40)
[2020-02-13] MEDS ORDERED: DEXTROSE 50% 50 ML VIAL IV PRN (13:40)
[2020-02-13] MEDS ORDERED: HYDROcodone/APAP 5/325MG TABLET PO PRN (13:40)
[2020-02-13] MEDS ORDERED: ONDANSETRON 4 MG/2 ML VIAL IV PRN (13:40)
[2020-02-13] MEDS ORDERED: POTASSIUM CHLORIDE 20 MEQ TABLET PO PRN ×2 (13:40)
[2020-02-13] MEDS ORDERED: POTASSIUM CHLORIDE 40 MEQ in DEXTROSE 5% IN WATER 500 ML IV PRN (13:40)
[2020-02-13] MEDS ORDERED: SENNOSIDES 1 TABLET PO PRN (13:40)
[2020-02-13] MEDS ORDERED: LORazepam 2 MG/ML VIAL IV PRN (13:40)
[2020-02-13] MEDS ORDERED: POLYETHYLENE GLYCOL 3350 17 GM PACKET PO PRN (13:40)
[2020-02-13] MEDS ORDERED: DEXTROSE 31 GM ORAL.SUSP PO PRN (13:40)
[2020-02-13] MEDS ORDERED: MELATONIN 3 MG TABLET PO SCH (21:00)
[2020-02-13] MEDS ORDERED: OMEPRAZOLE 20 MG CAPSULE PO SCH (21:00)
[2020-02-13] MEDS ORDERED: diphenhydrAMINE 25 MG CAPSULE PO PRN (21:00)
[2020-02-14] MEDS: 0.9 % SODIUM CHLORIDE 10 ML SYRINGE IV SCH (04:23)
[2020-02-14 07:08] LABS: ALT/SGPT 20 U/L (<40); AST/SGOT 17 U/L (<40); Albumin 3.1 gm/dL (3.2-5.2); Albumin/Globulin Ratio 0.9 (1.0-2.3); Alkaline Phosphatase 65 U/L (39-117); Bilirubin,Direct 0.3 mg/dL (<0.3); Blood Urea Nitrogen 14 mg/dL (8-23); Calcium 8.5 mg/dL (8.6-10.4); Carbon Dioxide 24 mmol/L (22-30); Chloride 98 mmol/L (96-108); Globulin 3.3 gm/dL (2.2-3.7); Glomerular Filtration Rate 100; Glucose 94 mg/dL (70-105); Lactate Dehydrogenase 217 U/L (135-225); Phosphorous 3.8 mg/dL (2.5-4.5); Triglycerides 43 mg/dL (<150); Uric Acid 4.9 mg/dL (2.5-8.0)
--- NOTE | 2020-02-14 08:59 | XRay Report ---
HISTORY: Follow-up Covid pneumonia FINDINGS: Severe alveolar infiltrates are present throughout both lungs. There has been mild improvement compared with prior exams of 02/07 and 02/11/2020. No pleural effusion is present. The heart size remains normal. IMPRESSION: Widespread pneumonia which is beginning to improve Interpreted and Authenticated by: Balaji Louie 02/14/20
[2020-02-14] MEDS ORDERED: RIVAROXABAN 20 MG TABLET PO SCH (09:00)
[2020-02-14] MEDS ORDERED: REMDESIVIR 100 MG in 0.9 % SODIUM CHLORIDE 250 ML IV SCH (09:00)
[2020-02-14] MEDS ORDERED: DEXAMETHASONE 4 MG TABLET PO SCH (09:00)
[2020-02-14] MEDS ORDERED: ZINC SULFATE 50 MG CAPSULE PO SCH (09:00)
[2020-02-14] MEDS ORDERED: cefTRIAXone 2 GM in DEXTROSE 5% IN WATER 50 ML IV SCH (09:00)
[2020-02-14] MEDS: TAMSULOSIN 0.4 MG CAPSULE PO SCH (09:25)
[2020-02-14] MEDS: DOCUSATE SODIUM 100 MG CAPSULE PO SCH (09:25)
--- NOTE | 2020-02-14 10:55 | Discharge Summary ---
Discharge Provider Provider Patient information: Note initiated : 02/14/20 at 10:53 am Service Date, if different from initiated Date: [] Patient: Hakeem Smart 64 y/o M admitted on 02/04/20 for shortness of breath. Discharge diagnosis * COVID 19 PNA -multifocal, superimposed on underlying ILD: Completed 10-day extended course remdesivir. Underlying immunocompromised state. thrombosis prophylaxis on rivaroxaban. Clinically improved on interval imaging. * *Acute Hypoxic Respiratory failure (2L@home): Continued improvement in oxygenation now on 3 L oxygen. * *History of interstitial lung disease/COPD/bronchiectasis (on 2L@home): Follows with Dr. Benítez * *DAMARIS -remained stable * *DM: A1c 6.2 * *h/o diastolic CHF: * *Rheumatoid arthritis/fibromyalgia: Foll Brief hospital course Interval history: Presents to the ED feeling sick for 1 week with fever chills body aches. In about 3 days ago start developing shortness of breath which is continue to worsen. His tested positive yesterday because she had similar symptoms so he went to his PCP tested in the office today which showed positive for Covid. He is on 2 L of oxygen chronically. He got pneumonia beginning of the year and has been on it since. Follows Dr. Benítez for interstitial lung disease as well as bronchiectasis In the ED he required 3 L of oxygen. He has pleuritic chest pain. He has occasional productive cough which is mostly chronic CTA was done which showed no PE but did show bilateral groundglass infiltrates. 02/04 Poor sleep last night. Has occasional cough. Has shortness of breath, his chest is less tight. 3 L of oxygen 02/05 Patient quite labored when he gets up to the bathroom and even when he was eating. Oxygen at 3 L on his sitting in chair resting but needs increased when he exerts himself. Minimal cough. Shortness of breath wax and wanes. 02/06 Patient had episode last night where he became hypoxic and coughing quite a bit. Eventually calm down fell asleep feels better this morning. Has no reserve when he starts to cough for exert himself. Inflammatory markers improving. 12:30 PM responded to nurse call with increasing shortness of breath. Stat ABGs 7.49/35/63 on 10 L oxygen. Patient started on BiPAP. Discussed clinical picture. Reviewed imaging from this morning with multifocal pneumonia. Case discussed with patient, explained that he may require ventilatory support if continues to deteriorate and may need transfer to tertiary center. Patient improves of plan. Continue remdesivir/steroid. Serial ABG/chest imaging. Noninvasive mechanical ventilation 02/07-patient doing well on noninvasive ventilation. ABG improved to 7.4 on 60% FiO2 BiPAP. This morning transiently off BiPAP. Able to talk in full sentences. Feels better. Continue remdesivir/dexamethasone. On empiric antibiotic coverage on Rocephin, follow inflammatory/coagulation monitor. Serial chest imaging/ABGs. 02/08-patient on 10 L oxygen status quo, CPAP at night. On remdesivir/steroid. On rivaroxaban. No overnight fever chills. White count 9.2. D-dimer 0.27 CRP 2.2, procalcitonin 0.06. 02/09-patient doing a lot better. No overnight events. Now on 35% noninvasive ventilation. Plan to extend remdesivir to 10-day treatment. Continue serial chest imaging/pulmonary toilet. White count 10.1. On empiric extended antibiotic coverage in light of immunosuppressed state. Continue Covid precautions 02/10-patient status quo currently on 10 L oxygen. Overnight on CPAP 35% FiO2. Feels slightly down and gloomy this morning as unable to see family. However has been able to communicate with family on phone. Denies fever chills. Minimal activity leads to increasing shortness of breath. Good appetite. No concerns per nursing staff. No telemetry events. Labs and hemodynamics stable. 02/11-patient clinically improved. No overnight events. No additional concerns per nursing staff. No fever chills nausea vomiting. Now down to 6 L oxygen. Feels a lot better. Stable labs and hemodynamics. White count 8.9. On remdesivir day 8. No telemetry events. Continue therapies as tolerated 02/12-patient doing a lot better. No overnight events. Currently on oxygen between 4 to 7 L. Gradually weaning. Feels a lot better. Anticipate discharge in 24 hours on home oxygen. Day 9 remdesivir/dexamethasone. Stable labs and hemodynamics. White count 8.9. On rivaroxaban for thrombosis prophylaxis. 02/13-patient completed 10 days remdesivir/dexamethasone. Discharging home today on home oxygen. Much improved. Widespread pneumonia however improving on interval chest imaging. Maintain COVID-19 precaution for additional 7 days. Follow-up with primary care physician/pulmonology as directed outpatient 2 weeks. Date of admission: 02/04/20 19:34 Discharge date: 02/14/20 Primary care physician: Fely Gamboa Consults: 02/04/20 Consult to Physician [CONS] Stat Comment: Consulting Provider: Rajiv Null Reason For Exam: Physician to Consult Discharge Meds Discharge Medications Home Medications albuterol 8.5 g INHALATION .Q4-6H PRN 04/19/16 [History Confirmed 02/04/20 Last Taken Unknown] tamsulosin 0.4 mg capsule 0.4 mg PO BID cap 04/19/16 [History Confirmed 02/04/20 Last Taken 02/04/20 09:00] glucosamine HCl 1,500 mg tablet 1,500 mg PO QDAY 04/25/16 [History Confirmed 02/05/20 Last Taken Unknown] omeprazole 20 mg PO BID 04/25/16 [History Confirmed 02/05/20 Last Taken 02/04/20 09:00] albuterol sulfate 2.5 mg INHALATION Q4H PRN 05/28/19 [History Confirmed 02/04/20 Last Taken Unknown] ipratropium 0.5 mg-albuterol 3 mg (2.5 mg base)/3 mL nebulization soln 3 ml INHALATION Q4H PRN 05/28/19 [History Confirmed 02/04/20 Last Taken Unknown] tofacitinib 5 mg tablet 5 mg PO BID #60 tab 12/17/19 [Rx Confirmed 02/05/20 Last Taken 02/04/20 09:00] Combivent Respimat 1 puff INHALATION Q6H 02/05/20 [History Confirmed 02/05/20 Last Taken Unknown] Xarelto 10 mg PO QDAY 02/05/20 [History Confirmed 02/05/20 Last Taken 02/04/20 09:00] acetaminophen 650 mg PO BID PRN MDD 4000mg 02/05/20 [History Confirmed 02/05/20 Last Taken 02/04/20 09:00] albuterol sulfate [ProAir HFA] 2 puff INHALATION Q6H PRN 02/05/20 [History Confirmed 02/05/20 Last Taken Unknown] COURSE Hospital Course Hospital course: . Discharge diagnosis: COVID-19 pneumonia/hypoxic respiratory failure Time Spent with Patient Time attestation: Total time spent providing and/or coordinating discharge services: EXAM Constitutional Vitals: Temp Pulse Resp BP Pulse Ox 97.0 F 63 18 110/60 96 02/14/20 08:00 02/14/20 08:00 02/14/20 08:00 02/14/20 08:00 02/14/20 08:00 Discharge Data Data Completed and Pending Labs on day of discharge: Labs from last 24 hours 02/14/20 05:24 Sodium 131 L Potassium 4.6 Chloride 98 Carbon Dioxide 24 Anion Gap 9.0 BUN 14 Creatinine 0.7 GFR Calculation 100 Glucose 94 Uric Acid 4.9 Calcium 8.5 L Phosphorus 3.8 Magnesium 2.5 Total Bilirubin 1.0 Direct Bilirubin 0.3 H GGT 36 AST 17 ALT 20 Alkaline Phosphatase 65 Lactate Dehydrogenase 217 Total Protein 6.4 Albumin 3.1 L Globulin 3.3 Albumin/Globulin Ratio 0.9 L Triglycerides 43 Discharge Plan Patient/Caregiver Discharge Instructions Activity: increase activity as tolerated Diet: Regular Diet Activity Restrictions/Additional Instructions: Follow-up PCP in 2 weeks. Hold tofacitinib for additional 7 days Follow-up with pulmonology in 2 weeks Continue home oxygen and wean as tolerated COVID-19 precaution for additional 7 days Prescriptions: Continued Xeljanz 5 mg tablet 5 mg PO BID Qty: 60 RF: 1 albuterol 8.5 g INHALATION .Q4-6H PRN (Reason: difficulty breathing) RF: 0 albuterol sulfate 2.5 mg /3 mL (0.083 %) solution for nebulization 2.5 mg INHALATION Q4H PRN (Reason: SOB) RF: 0 ipratropium-albuterol 0.5 mg-3 mg(2.5 mg base)/3 mL solution for nebulization 3 ml INHALATION Q4H PRN (Reason: SOB) RF: 0 glucosamine HCl 1,500 mg tablet 1,500 mg PO QDAY RF: 0 tamsulosin 0.4 MG capsule 0.4 mg PO BID RF: 0 omeprazole 20 MG capsule 20 mg PO BID RF: 0 Xarelto 10 mg Tablet 10 mg PO QDAY RF: 0 acetaminophen 325 mg Tablet 650 mg PO BID MDD 4000mg PRN (Reason: pain or fever) RF: 0 Combivent Respimat 20-100 mcg/actuation Mist 1 puff INHALATION Q6H RF: 0 albuterol sulfate [ProAir HFA] 90 mcg/actuation Hfa Aerosol Inhaler 2 puff INHALATION Q6H PRN (Reason: Shortness Of Breath) RF: 0 Follow Up Plan Follow up with: Fely Gamboa MD [Primary Care Provider] - Patient Disposition: Home, Self-Care Prognosis: Serious Rehab Potential: Fair I certify that the patient requires SNF services: No Overall status at discharge: patient is progressing back to baseline Discharge Orders: Discharge Order (Routine); Ordered 02/14/20 Ordered By: Chico Brooks
== END 2020-02-14 13:20 | disposition home or self-care (01) | DRG 177 ==
LOC: ED 13:06 → ICU 19:34 → MEDSUR 02-13 15:58
PROVIDERS: ADMIT Internal Medicine; ATTEND Internal Medicine

== ENCOUNTER 2020-02-25 13:29 | Inpatient (IN) ==
[2020-02-25] MEDS ORDERED: 0.9 % SODIUM CHLORIDE 1,000 ML IV ONE ×2 (14:54→16:52)
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
[2020-02-25 15:13] LABS: POC Blood Urea Nitrogen 8 mg/dL (6-20); POC CO2 25 mmol/L (22-30); POC Calcium, Ionized 1.12 mmEq/L (1.16-1.32); POC Chloride 101 mEq/L (96-108); POC Creatinine 0.8 mg/dL (0.6-1.2); POC Glucose, Random 109 mg/dL (70-105); POC Hematocrit 42 % (41-55); POC Potassium 3.8 mEql/L (3.3-5.1); POC Sodium 134 mEq/L (133-145)
[2020-02-25] MEDS: morphine 2 MG/ML VIAL IV PRN ×2 (15:15→17:01)
[2020-02-25] MEDS ORDERED: LEVOFLOXACIN 750 MG/150 ML BAG IV ONE (15:58)
[2020-02-25 16:09] LABS: Appearance,Urine CLEAR (Clear); Bilirubin,Urine Negative (Negative); Color,Urine YELLOW; Culture Indicated,Urine yes; Glucose,Urine (UA) Negative (Negative); Ketones,Urine Negative (Negative); Leukocyte Esterase,Urine 250 /ug (Negative); Mucus,Urine FEW /hpf; Nitrate,Urine Negative (Negative); Protein,Urine 30 mg/dL (Negative); Specific Gravity,Urine 1.018 (1.000-1.035); Urine Blood Negative (Negative); Urine RBC 8 /hpf (0-1); Urine Squamous Epithelial Cell 0 /hpf (0-4); Urine WBC 91 /hpf (0-4); Urobilinogen,Urine Negative
[2020-02-25] MEDS ORDERED: ACETAMINOPHEN 325 MG TABLET PO ONE (16:25)
[2020-02-25 16:56] LABS: Hematocrit 40.2 % (41.0-55.0); Hemoglobin 13.4 g/dL (13.5-16.5); Lymphocytes % 6 % (15-49); Mean Cell Volume 83.6 fL (80.0-100.0); Mean Corpuscular HGB Conc 33.3 g/dL (31.0-36.0); Mean Platelet Volume 9.5 fL (7.4-10.4); Monocytes % (Manual) 8 % (1-12); Platelet Count 180 K/mcL (140-440); Platelet Estimate NORMAL (Normal); RBC 4.81 M/mcL (4.50-5.90); RBC Morphology NORMAL (Normal); Red Cell Distribution Width 14.2 % (11.5-14.5); Segmented Neutrophils % 86 % (38-78); WBC 19.1 K/mcL (4.5-11.0)
--- NOTE | 2020-02-25 17:18 | Ultrasound Report ---
INDICATION: acute left testicular pain TECHNIQUE: Grayscale and color flow Doppler spectral imaging COMPARISON: None. FINDINGS: Right Epididymis: Right epididymis measures1.1 x 0.9 x 0.6 cm. Negative epididymis. Normal vascularity with no evidence for epididymitis. Right Testicle: Right testicle measures4.4 x 2.1 x 2.7 cm Normal right testicular parenchyma. No solid or cystic mass. Normal vascularity. No evidence for orchitis. Left Epididymis: Left epididymis measures0.8 x 0.8 x 0.5 cm the tail of the left epididymis is hypervascular which may represent epididymitis. Left Testicle: Left testicle measures4.7 x 3.3 x 3.0 cm. Left testicle is hypervascular consistent with orchitis. There is no focal left testicular mass. No solid or cystic lesion. Scrotal: Bilateral hydroceles. There is a small right scrotal lith noted incidentally IMPRESSION: 1. Hypervascular left testicle without discrete mass. Appearance is consistent with orchitis 2. Hypervascular tail of the left epididymis. Appearance is consistent with epididymitis 3. Bilateral hydroceles Interpreted and Authenticated by: Pato Venegas 02/25/20
[2020-02-25] MEDS ORDERED: PIPERACILLIN SODIUM/TAZOBACTAM 3.375 GM in DEXTROSE 5% IN WATER 50 ML IV ONE (18:15)
[2020-02-25] MEDS ORDERED: VANCOMYCIN PER PHARMACY IV ONE (19:49)
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
[2020-02-25] MEDS ORDERED: BUDESONIDE 0.5 MG/2 ML AMPUL.NEB NEB SCH (21:00)
[2020-02-25] MEDS ORDERED: ONDANSETRON 4 MG/2 ML VIAL IV PRN (21:06)
[2020-02-25] MEDS ORDERED: ACETAMINOPHEN 650 MG/65 ML BAG IV PRN (21:06)
[2020-02-25] MEDS ORDERED: POLYETHYLENE GLYCOL 3350 17 GM PACKET PO PRN (21:06)
[2020-02-25] MEDS ORDERED: ACETAMINOPHEN 325 MG TABLET PO PRN (21:06)
[2020-02-25] MEDS ORDERED: BISACODYL 10 MG SUPP.RECT PR PRN (21:06)
[2020-02-25] MEDS ORDERED: MELATONIN 3 MG TABLET PO PRN (21:06)
[2020-02-25] MEDS ORDERED: HYDROmorphone 0.5 MG/0.5 ML SYRINGE IV PRN (21:06)
[2020-02-25] MEDS ORDERED: MAGNESIUM SULFATE 2 GM/50 ML BAG IV PRN (21:06)
[2020-02-25] MEDS ORDERED: POTASSIUM CHLORIDE 40 MEQ in DEXTROSE 5% IN WATER 500 ML IV PRN (21:06)
[2020-02-25] MEDS ORDERED: POTASSIUM CHLORIDE 20 MEQ PACKET PO PRN (21:06)
[2020-02-25] MEDS ORDERED: VANCOMYCIN PER PHARMACY IV SCH (21:06)
[2020-02-25] MEDS ORDERED: ONDANSETRON 4 MG ODT TABLET SL PRN (21:06)
[2020-02-25] MEDS ORDERED: BUTALB/ACETAMINOPHEN/CAFFEINE 1 TABLET PO PRN (21:36)
[2020-02-25] MEDS: DOCUSATE SODIUM 100 MG CAPSULE PO SCH (21:39)
[2020-02-25] MEDS: 0.9 % SODIUM CHLORIDE 1,000 ML IV SCH (21:39)
[2020-02-25] MEDS: SENNOSIDES/DOCUSATE SODIUM 1 TAB TABLET PO SCH (21:39)
[2020-02-25] MEDS: VANCOMYCIN 1,500 MG in 0.9 % SODIUM CHLORIDE 500 ML IV SCH (21:40)
[2020-02-25] MEDS: HEPARIN 5,000 UNIT/ML VIAL SQ SCH (21:40)
[2020-02-25] MEDS: 0.9 % SODIUM CHLORIDE 10 ML SYRINGE IV SCH (21:40)
[2020-02-25] MEDS: IBUPROFEN 200 MG TABLET PO PRN (21:49)
[2020-02-25] MEDS: BUDESONIDE 1 PUFF INHALER INH SCH (21:53)
[2020-02-26] MEDS: PIPERACILLIN SODIUM/TAZOBACTAM 3.375 GM in DEXTROSE 5% IN WATER 50 ML IV SCH ×5 (00:16→23:50)
[2020-02-26] MEDS: 0.9 % SODIUM CHLORIDE 10 ML SYRINGE IV SCH ×3 (05:51→20:48)
[2020-02-26 06:32] LABS: Basophils # (Auto) 0.03 K/mcL (0.00-0.20); Basophils % (Auto) 0.2 % (0.0-2.0); Eosinophils # (Auto) 0.26 K/mcL (0.00-0.70); Eosinophils % (Auto) 1.9 % (0.0-7.0); Hematocrit 38.6 % (41.0-55.0); Hemoglobin 12.5 g/dL (13.5-16.5); Lymphocytes # (Auto) 0.79 K/mcL (1.50-4.80); Lymphocytes % (Auto) 5.8 % (15.0-49.0); Mean Cell Volume 85.2 fL (80.0-100.0); Mean Corpuscular HGB Conc 32.4 g/dL (31.0-36.0); Mean Platelet Volume 9.5 fL (7.4-10.4); Monocytes % (Auto) 5.2 % (1.0-12.0); Neutrophils % (Auto) 86.9 % (38.0-78.0); Platelet Count 159 K/mcL (140-440); RBC 4.53 M/mcL (4.50-5.90); Red Cell Distribution Width 14.2 % (11.5-14.5); WBC 13.6 K/mcL (4.5-11.0)
[2020-02-26] MEDS: IBUPROFEN 200 MG TABLET PO PRN (07:01)
[2020-02-26 07:08] LABS: ALT/SGPT 17 U/L (<40); AST/SGOT 15 U/L (<40); Albumin 3.2 gm/dL (3.2-5.2); Alkaline Phosphatase 118 U/L (39-117); Bilirubin,Direct 0.3 mg/dL (<0.3); Bilirubin,Total 1.5 mg/dL (0.1-1.0); Blood Urea Nitrogen 9 mg/dL (8-23); Calcium 8.4 mg/dL (8.6-10.4); Carbon Dioxide 26 mmol/L (22-30); Chloride 103 mmol/L (96-108); Globulin 3.1 gm/dL (2.2-3.7); Glomerular Filtration Rate 100; Glucose 99 mg/dL (70-105); Lactate Dehydrogenase 244 U/L (135-225); Phosphorous 2.9 mg/dL (2.5-4.5); Triglycerides 121 mg/dL (<150); Uric Acid 2.8 mg/dL (2.5-8.0)
[2020-02-26] MEDS ORDERED: TIOTROPIUM BROMIDE 18 MCG INHALANT INH SCH (09:00)
[2020-02-26] MEDS: VANCOMYCIN 1,500 MG in 0.9 % SODIUM CHLORIDE 500 ML IV SCH ×2 (09:47→20:47)
[2020-02-26] MEDS: DOCUSATE SODIUM 100 MG CAPSULE PO SCH ×2 (09:48→20:47)
[2020-02-26] MEDS: BUDESONIDE 1 PUFF INHALER INH SCH (09:48)
[2020-02-26] MEDS: MULTIVIT,THER IRON,CA,FA & MIN 1 TABLET PO SCH (09:48)
[2020-02-26] MEDS: HEPARIN 5,000 UNIT/ML VIAL SQ SCH (09:48)
--- NOTE | 2020-02-26 10:10 | Internal Med Progress Note ---
SUBJECTIVE Subjective Patient information: Note initiated : 02/26/20 at 10:08 am Service Date, if different from initiated Date: [] Patient: Hakeem Smart 64 y/o M admitted on 02/25/20 for Abdominal. Chief Complaint: [] Interval history: History of present illness: Mr. Smart is a 64 year old M with a history of interstitial lung disease/bronchiectasis and recent Covid pneumonia who was hospitalized for 10 days and was discharged on 02/13 following remdesivir and dexamethasone treatment. Patient was in baseline state of health until 2 days prior to presentation started noticing burning sensation while urinating. For the last 24 hours he is noted except lower abdominal pain along with scrotal swelling and left testicular pain. Over the last 24 hours he has not been unable to void Initial work-up in the ER was consistent with severe sepsis with a white count over 19,000. Ultrasound reveals epididymitis. Patient was started on antibiotic coverage and subsequently hospitalist service was consulted. At the time of my evaluation patient is alert but anxious. He endorses to headache/weakness along with lower abdominal discomfort 6 out of 10. He denies recent trauma. He denies prior episode of epididymoorchitis/STDs 02/25-patient doing well. No overnight events. No concerns expressed by nursing staff. Fever defervesced. White count down to 13,000. Pain much improved. Sitting on chair on 2 L oxygen. Continue antibiotic coverage. Cultures negative so far. Stable hemodynamics Constitutional Vitals: Vital Signs Temp Pulse Resp BP Pulse Ox 97.5 F 95 H 14 117/63 97 02/26/20 09:58 02/26/20 09:58 02/26/20 09:58 02/26/20 09:58 02/26/20 09:58 Period Temp Pulse Resp BP Sys/Estes Pulse Ox Last 24 Hr 97.5 F-102.2 F 52-100 12- 113-165/63-89 93-99 Intake and Output 02/25/20 02/26/20 02/26/20 21:59 05:59 13:59 Intake Total 2200 1187 480 Output Total 200 1500 Balance 2000 -313 480 Weight 119.567 kg Intake & Output: Intake & Output 02/25/20 02/26/20 02/26/20 21:59 05:59 13:59 Intake Total 2200 1187 480 Output Total 200 1500 Balance 1999 -313 480 Weight 119.567 kg Intake: Nourishment/Supplement quantity 237 (ml) IV 2200 550 Sodium Chloride 0.9% 1,000 ml @ 2000 Wide Open IV B[facility] Rx#: [id number] Zosyn 3.375 gm In Dextrose 5% 50 50 in Water 50 ml @ 100 mls/hr IV Q6H [facility] Rx#:[id number] Vancomycin 1,500 mg In Sodium 500 Chloride 0.9% 500 ml @ 333.333 mls/hr IV Q12H [facility] Rx#: [id number] Oral 400 480 Output: Void Amount 200 1500 Other: Meal Nourishment/Supplement Breakfast Percent of Meal Consumed 100% 100% Feeding Ability Independent Independent Nourishment/Supplement name Glucerna Urine Appearance Clear Clear Urine Color Bright Yellow Pale Dark Yellow Alert oriented no anxiety Nonlabored breathing Nondistended abdomen OBJ DATA Labs CBC & Chem 7: 02/26/20 05:18 02/26/20 05:18 Labs: Abnormal Lab Results 02/26/20 02/26/20 02/25/20 05:18 05:18 15:20 WBC 13.6 H Hgb 12.5 L Hct 38.6 L Neut % (Auto) 86.9 H Lymph % (Auto) 5.8 L Lymph # (Auto) 0.79 L Seg Neutrophils % Lymphocytes % Absolute Neutrophils 11.80 H POC Glucose Calcium 8.4 L POC WB Ioniz Calcium Total Bilirubin 1.5 H Direct Bilirubin 0.3 H Alkaline Phosphatase 118 H Lactate Dehydrogenase 244 H Urine Protein 30 A Ur Leukocyte Esterase 250 A Urine RBC 8 H Urine WBC 91 H Urine Mucus Few A 02/25/20 02/25/20 15:04 15:04 WBC 19.1 H Hgb 13.4 L Hct 40.2 L Neut % (Auto) Lymph % (Auto) Lymph # (Auto) Seg Neutrophils % 86 H Lymphocytes % 6 L Absolute Neutrophils POC Glucose 109 H Calcium POC WB Ioniz Calcium 1.12 L Total Bilirubin Direct Bilirubin Alkaline Phosphatase Lactate Dehydrogenase Urine Protein Ur Leukocyte Esterase Urine RBC Urine WBC Urine Mucus Meds: Medications Acetaminophen (Tylenol) 650 mg PO Q4-6HP PRN; Protocol PRN Reason: Per Pain Protocol/Fever > 101 Acetaminophen/Butalbital/Caffeine (Fioricet) 1 tab PO Q6HP PRN PRN Reason: Headache Last Admin: 02/26/20 09:47 Dose: 1 tab Documented by: Bisacodyl (Dulcolax) 10 mg NC Q2-3DAYS PRN PRN Reason: Constipation Docusate Sodium (Colace) 100 mg PO BID [facility] Last Admin: 02/26/20 09:48 Dose: 100 mg Documented by: Hydromorphone HCl (Dilaudid) 0.25 - 0.5 mg IV Q4HP PRN; Protocol PRN Reason: Per Pain Protocol Potassium Chloride 40 meq/ (Dextrose) 520 mls @ 130 mls/hr IV UD PRN PRN Reason: K+ = or < 3.5 Magnesium Sulfate (Magnesium Sulfate) 2 gm in 50 mls @ 50 mls/hr IV UD PRN PRN Reason: MG = or < 1.7 Sodium Chloride (Sodium Chloride 0.9%) 1,000 mls @ 50 mls/hr IV .Q20H [facility] Stop: 02/28/20 09:05 Last Admin: 02/25/20 21:39 Dose: 50 mls/hr Documented by: Acetaminophen (Ofirmev) 650 mg in 65 mls @ 130 mls/hr IV Q6HP PRN; Protocol PRN Reason: Per Pain Protocol/Fever > 101 Piperacillin Sod/Tazobactam (Sod 3.375 gm/ Dextrose) 50 mls @ 100 mls/hr IV Q6H [facility]; Protocol Last Admin: 02/26/20 05:51 Dose: 100 mls/hr Documented by: Vancomycin HCl 1,500 mg/ (Sodium Chloride) 500 mls @ 333.333 mls/hr IV Q12H [facility] Last Admin: 02/26/20 09:47 Dose: 333.333 mls/hr Documented by: Ibuprofen (Motrin) 200 mg PO Q4HP PRN; Protocol PRN Reason: Per Pain Protocol Last Admin: 02/26/20 07:01 Dose: 200 mg Documented by: Iron Carb/Multivit/[place]/Folic Acid (Multivitamin W/Minerals) 1 tab PO DAILY [facility] Last Admin: 02/26/20 09:48 Dose: 1 tab Documented by: Melatonin (Melatonin 3mg Tablet) 3 mg PO HSP PRN PRN Reason: Insomnia Omeprazole (Prilosec) 20 mg PO ACB [facility] Ondansetron HCl (Zofran Odt) 4 mg SL Q4-6HP PRN; Protocol PRN Reason: Nausea And Vomiting Ondansetron HCl (Zofran) 4 mg IV Q4-6HP PRN; Protocol PRN Reason: Nausea And Vomiting Last Admin: 02/25/20 21:40 Dose: 4 mg Documented by: Polyethylene Glycol (Miralax) 17 gm PO DAILYP PRN PRN Reason: Constipation Potassium Chloride (Klor-Con) 40 meq PO DAILYP PRN PRN Reason: K+ < 3.5 Rivaroxaban (Xarelto) 10 mg PO QPMCC [facility] Senna/Docusate Sodium (Senna Plus Tablet) 1 tab PO HS [facility] Last Admin: 02/25/20 21:39 Dose: 1 tab Documented by: Sodium Chloride (Saline Flush) 10 ml IV Q8 [facility] Last Admin: 02/26/20 05:51 Dose: 10 ml Documented by: Vancomycin HCl (Vancomycin Per Pharmacy) 1 order IV UD [facility]; Protocol A/P Narrative A/P Narrative: * Left epididymoorchitis-clinical improvement noted on antibiotic coverage. No evidence of abscess on ultrasound. Await cultures. Plan to de-escalate antibiotics * Sepsis secondary to above. Continue antibiotic coverage. Pancultures. White count 19.3 * History of COPD/bronchiectasis currently on 3 L oxygen: Follows with Dr. Benítez. Continue bronchodilators/supplemental oxygen * DAMARIS -start home CPAP mode at night * DM: A1c 6.2-continue CC diet * History of diastolic heart failure currently well compensated * Rheumatoid arthritis/fibromyalgia: Follows with Dr. Carlos. 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
[2020-02-26] MEDS: OMEPRAZOLE 20 MG CAPSULE PO SCH (10:18)
[2020-02-26] MEDS: 0.9 % SODIUM CHLORIDE 1,000 ML IV SCH ×2 (16:24→20:47)
[2020-02-26] MEDS ORDERED: RIVAROXABAN 20 MG TABLET PO SCH (17:30)
[2020-02-26] MEDS: SENNOSIDES/DOCUSATE SODIUM 1 TAB TABLET PO SCH (20:47)
[2020-02-27] MEDS: PIPERACILLIN SODIUM/TAZOBACTAM 3.375 GM in DEXTROSE 5% IN WATER 50 ML IV SCH (05:21)
[2020-02-27] MEDS: 0.9 % SODIUM CHLORIDE 10 ML SYRINGE IV SCH (05:22)
[2020-02-27 06:33] LABS: Basophils # (Auto) 0.03 K/mcL (0.00-0.20); Basophils % (Auto) 0.3 % (0.0-2.0); Eosinophils # (Auto) 0.41 K/mcL (0.00-0.70); Eosinophils % (Auto) 4.6 % (0.0-7.0); Hematocrit 35.4 % (41.0-55.0); Hemoglobin 11.4 g/dL (13.5-16.5); Lymphocytes # (Auto) 1.09 K/mcL (1.50-4.80); Lymphocytes % (Auto) 12.3 % (15.0-49.0); Mean Cell Volume 85.5 fL (80.0-100.0); Mean Corpuscular HGB Conc 32.2 g/dL (31.0-36.0); Mean Platelet Volume 9.6 fL (7.4-10.4); Monocytes % (Auto) 6.8 % (1.0-12.0); Platelet Count 157 K/mcL (140-440); RBC 4.14 M/mcL (4.50-5.90); Red Cell Distribution Width 13.9 % (11.5-14.5); WBC 8.9 K/mcL (4.5-11.0)
--- NOTE | 2020-02-27 06:39 | XRay Report ---
INDICATION: Interval Change TECHNIQUE: AP portable upright chest x-ray COMPARISON: Previous chest x-rays dated 02/14/2020, 02/11/2020, 02/08/2020 FINDINGS: Lungs:Bilateral airspace disease is improved since previous examinations. Findings may be due to residual pneumonia but may also be secondary to pulmonary edema. Clinical correlation and continued follow-up recommended Heart, vascular:Cardiomegaly is increased since previous examination. Pericardial effusion is not excluded. There are bilateral parenchymal infiltrates and findings may be secondary to pulmonary edema. Mediastinum, lionel:No mediastinal widening. No hilar mass Pleura:No detectable pleural fluid. No pleural-based mass or calcification Skeletal:Negative. IMPRESSION: 1. Cardiomegaly, increased 2. Diffuse pulmonary parenchymal infiltrates. Findings may be due to residual pneumonia or pulmonary edema Interpreted and Authenticated by: Pato Venegas 02/27/20
[2020-02-27 07:12] LABS: ALT/SGPT 16 U/L (<40); AST/SGOT 14 U/L (<40); Albumin 2.8 gm/dL (3.2-5.2); Albumin/Globulin Ratio 0.9 (1.0-2.3); Alkaline Phosphatase 64 U/L (39-117); Bilirubin,Direct < 0.2 mg/dL (<0.3); Bilirubin,Total 0.8 mg/dL (0.1-1.0); Blood Urea Nitrogen 8 mg/dL (8-23); Calcium 8.2 mg/dL (8.6-10.4); Carbon Dioxide 26 mmol/L (22-30); Chloride 101 mmol/L (96-108); Globulin 3.2 gm/dL (2.2-3.7); Glomerular Filtration Rate 90; Glucose 112 mg/dL (70-105); Lactate Dehydrogenase 159 U/L (135-225); Phosphorous 2.7 mg/dL (2.5-4.5); Triglycerides 82 mg/dL (<150); Uric Acid 2.9 mg/dL (2.5-8.0)
[2020-02-27] MEDS: MULTIVIT,THER IRON,CA,FA & MIN 1 TABLET PO SCH (08:01)
[2020-02-27] MEDS: OMEPRAZOLE 20 MG CAPSULE PO SCH (08:01)
[2020-02-27] MEDS: DOCUSATE SODIUM 100 MG CAPSULE PO SCH (08:01)
[2020-02-27] MEDS: VANCOMYCIN 1,500 MG in 0.9 % SODIUM CHLORIDE 500 ML IV SCH (09:16)
--- NOTE | 2020-02-27 10:08 | Discharge Summary ---
Discharge Provider Provider Patient information: Note initiated : 02/27/20 at 9:58 am Service Date, if different from initiated Date: [] Patient: Hakeem Smart a 64 y/o M admitted on 02/25/20 for Abdominal. Discharge diagnosis * Left epididymoorchitis-clinical improvement noted on antibiotic coverage. Negative cultures to date. Continue additional 10 days oral levofloxacin * Sepsis secondary to above. Clinically resolved. White count down from 19.3- 9000 * History of COPD/bronchiectasis currently on 3 L oxygen: Follows with Dr. Benítez. Continue bronchodilators/supplemental oxygen * DAMARIS -continue home CPAP mode at night * DM: A1c 6.2-continue CC diet * History of diastolic heart failure currently well compensated * Rheumatoid arthritis/fibromyalgia: Follows with Dr. Carlos. 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 Smart is a 64 year old M with a history of interstitial lung disease/bronchiectasis and recent Covid pneumonia who was hospitalized for 10 days and was discharged on 02/13 following remdesivir and dexamethasone treatment. Patient was in baseline state of health until 2 days prior to presentation started noticing burning sensation while urinating. For the last 24 hours he is noted except lower abdominal pain along with scrotal swelling and left testicular pain. Over the last 24 hours he has not been unable to void Initial work-up in the ER was consistent with severe sepsis with a white count over 19,000. Ultrasound reveals epididymitis. Patient was started on antibiotic coverage and subsequently hospitalist service was consulted. At the time of my evaluation patient is alert but anxious. He endorses to headache/weakness along with lower abdominal discomfort 6 out of 10. He denies recent trauma. He denies prior episode of epididymoorchitis/STDs 02/25-patient doing well. No overnight events. No concerns expressed by nursing staff. Fever defervesced. White count down to 13,000. Pain much improved. Sitting on chair on 2 L oxygen. Continue antibiotic coverage. Cultures negative so far. Stable hemodynamics 02/26-patient doing remarkably well. White count normalized. Pain resolved. D ischarging on 10 days of oral levofloxacin 500 daily advised to follow-up with primary care physician. Return to ER if worsening pain/fever chills noted Date of admission: 02/25/20 21:00 Discharge date: 02/27/20 Primary care physician: Fely Gamboa Consults: 02/25/20 Consult to Physician [CONS] Stat Comment: Consulting Provider: Chico Brooks Reason For Exam: Physician to Consult Discharge Meds Discharge Medications Home Medications albuterol 8.5 g INHALATION Q4-6HP PRN 04/19/16 [History Confirmed 02/26/20 Last Taken Unknown] tamsulosin 0.4 mg capsule 0.4 mg PO BID cap 04/19/16 [History Confirmed 02/25/20 Last Taken 02/04/20 09:00] glucosamine HCl 1,500 mg tablet 1,500 mg PO QDAY 04/25/16 [History Confirmed 02/26/20 Last Taken Unknown] omeprazole 20 mg PO BID 04/25/16 [History Confirmed 02/25/20 Last Taken 02/04/20 09:00] albuterol sulfate 2.5 mg INHALATION Q4-6HP PRN 05/28/19 [History Confirmed 02/26/20 Last Taken Unknown] ipratropium 0.5 mg-albuterol 3 mg (2.5 mg base)/3 mL nebulization soln 3 ml INHALATION Q4-6HP PRN 05/28/19 [History Confirmed 02/26/20 Last Taken Unknown] tofacitinib 5 mg tablet 5 mg PO BID #60 tab 12/17/19 [Rx Confirmed 02/25/20 Last Taken 02/04/20 09:00] Combivent Respimat 1 puff INHALATION Q6H 02/05/20 [History Confirmed 02/26/20 Last Taken Unknown] Xarelto 10 mg PO QDAY 02/05/20 [History Confirmed 02/25/20 Last Taken 02/04/20 09:00] acetaminophen 650 mg PO BID PRN MDD 4000mg 02/05/20 [History Confirmed 02/25/20 Last Taken 02/04/20 09:00] albuterol sulfate [ProAir HFA] 2 puff INHALATION Q6H PRN 02/05/20 [History Confirmed 02/26/20 Last Taken Unknown] levofloxacin 500 mg PO QDAY #10 tab 02/27/20 [Rx Last Taken Unknown] COURSE Hospital Course Hospital course: . Discharge diagnosis: . Time Spent with Patient Time attestation: Total time spent providing and/or coordinating discharge services: EXAM Constitutional Vitals: Temp Pulse Resp BP Pulse Ox 98.4 F 77 20 115/67 95 02/27/20 08:25 02/27/20 08:25 02/27/20 08:25 02/27/20 08:25 02/27/20 08:25 Discharge Data Data Completed and Pending Labs on day of discharge: Labs from last 24 hours 02/27/20 02/27/20 02/27/20 07:59 05:35 05:34 WBC 8.9 RBC 4.14 L Hgb 11.4 L Hct 35.4 L MCV 85.5 MCH 27.5 MCHC 32.2 RDW 13.9 Plt Count 157 MPV 9.6 Neut % (Auto) 76.0 Lymph % (Auto) 12.3 L Pettis % (Auto) 6.8 Eos % (Auto) 4.6 Baso % (Auto) 0.3 Lymph # (Auto) 1.09 L Pett[place] # (Auto) 0.60 Eos # (Auto) 0.41 Baso # (Auto) 0.03 Absolute Neutrophils 6.72 Sodium 136 Potassium 4.1 Chloride 101 Carbon Dioxide 26 Anion Gap 9.0 BUN 8 Creatinine 0.9 GFR Calculation 90 Glucose 112 H Uric Acid 2.9 Calcium 8.2 L Phosphorus 2.7 Magnesium 2.0 Total Bilirubin 0.8 Direct Bilirubin < 0.2 GGT 25 AST 14 ALT 16 Alkaline Phosphatase 64 Lactate Dehydrogenase 159 Total Protein 6.0 Albumin 2.8 L Globulin 3.2 Albumin/Globulin Ratio 0.9 L Triglycerides 82 Vancomycin Trough 7.9 Preliminary micro results at discharge 02/25/20 16:10 Blood Culture - Preliminary Blood 02/25/20 16:05 Blood Culture - Preliminary Blood Discharge Plan Patient/Caregiver Discharge Instructions Activity: increase activity as tolerated Diet: Regular Diet Instructions: Epididymitis (GEN), Sepsis (GEN) Activity Restrictions/Additional Instructions: Continue Levaquin 500 for 10 days Follow-up primary care physician as suggested Return to ER if worsening scrotal pain swelling/fever chills noted This discharge packet is provided to you to help keep you informed about your care. We want to ensure you get everything you need when you go home. You will also be receiving a call from us in a few days to follow up with you and see how you are doing since your discharge. This gives us a chance to listen to any concerns you maybe experiencing since you were discharged or any additional needs you may have, as well as providing us feedback on your care experience. We strive to always provide excellent care and thank you for your feedback and for choosing [facility]. Prescriptions: New levofloxacin 500 mg tablet 500 mg PO QDAY Qty: 10 RF: 0 Continued Xeljanz 5 mg tablet 5 mg PO BID Qty: 60 RF: 1 albuterol 8.5 g INHALATION Q4-6HP PRN (Reason: difficulty breathing) RF: 0 albuterol sulfate 2.5 mg /3 mL (0.083 %) solution for nebulization 2.5 mg INHALATION Q4-6HP PRN (Reason: SOB) RF: 0 ipratropium-albuterol 0.5 mg-3 mg(2.5 mg base)/3 mL solution for nebulization 3 ml INHALATION Q4-6HP PRN (Reason: SOB) RF: 0 glucosamine HCl 1,500 mg tablet 1,500 mg PO QDAY RF: 0 tamsulosin 0.4 MG capsule 0.4 mg PO BID RF: 0 omeprazole 20 MG capsule 20 mg PO BID RF: 0 Xarelto 10 mg Tablet 10 mg PO QDAY RF: 0 acetaminophen 325 mg Tablet 650 mg PO BID MDD 4000mg PRN (Reason: pain or fever) RF: 0 Combivent Respimat 20-100 mcg/actuation Mist 1 puff INHALATION Q6H RF: 0 albuterol sulfate [ProAir HFA] 90 mcg/actuation Hfa Aerosol Inhaler 2 puff INHALATION Q6H PRN (Reason: Shortness Of Breath) RF: 0 Follow Up Plan Follow up with: Fely Gamboa MD [Primary Care Provider] - 03/09/20 11:30 am (Please arrive 15 minutes early This appointment will be with Dr. Venu Dunn) Patient Disposition: Home, Self-Care Prognosis: Fair Rehab Potential: Fair I certify that the patient requires SNF services: No Overall status at discharge: patient is progressing back to baseline Discharge Orders: Discharge Order (Routine); Ordered 02/27/20 Ordered By: Chico MOSQUEDA VTE Deep Vein Thrombosis/Pulmonary Embolism Present on Admission: No
[2020-02-27] MEDS ORDERED: cefTRIAXone 2 GM in DEXTROSE 5% IN WATER 50 ML IV ONE (10:15)
== END 2020-02-27 11:35 | disposition home or self-care (01) | DRG 872 ==
LOC: ED 13:29 → ICU 21:00
PROVIDERS: ADMIT Internal Medicine; ATTEND Internal Medicine

== ENCOUNTER 2023-04-17 10:55 | Observation (INO) ==
[2023-04-17] MEDS ORDERED: IOPAMIDOL 100 ML BOTTLE IV ONE (10:56)
[2023-04-17 11:55] LABS: Basophils # (Auto) 0.02 K/mcL (0.00-0.30); Basophils % (Auto) 0.2 % (0.0-2.0); Eosinophils # (Auto) 0.16 K/mcL (0.00-0.70); Eosinophils % (Auto) 1.8 % (0.0-7.0); Hematocrit 40.5 % (40.1-51.0); Lymphocytes % (Auto) 11.1 % (15.5-49.0); Mean Cell Volume 85.6 fL (80.0-100.0); Mean Corpuscular HGB Conc 32.1 g/dL (31.0-36.0); Mean Platelet Volume 9.1 fL (8.8-12.5); Monocytes % (Auto) 5.5 % (1.0-12.0); Neutrophils % (Auto) 80.6 % (38.0-78.0); Platelet Count 289 K/mcL (140-440); RBC 4.73 M/mcL (4.63-6.08); Red Cell Distribution Width 15.3 % (11.5-14.5)
[2023-04-17 12:20] LABS: ALT/SGPT 14 U/L (<40); AST/SGOT 17 U/L (<40); Albumin/Globulin Ratio 1.5 (1.0-2.3); Alkaline Phosphatase 90 U/L (39-117); Bilirubin,Total 0.7 mg/dL (0.1-1.0); Blood Urea Nitrogen 8 mg/dL (8-23); Calcium 8.8 mg/dL (8.6-10.4); Carbon Dioxide 24 mmol/L (22-30); Chloride 101 mmol/L (96-108); Globulin 2.6 gm/dL (2.2-3.7); Glomerular Filtration Rate 88; Glucose 155 mg/dL (70-105)
[2023-04-17] MEDS ORDERED: ONDANSETRON 4 MG/2 ML VIAL IV PRN (16:48)
[2023-04-17] MEDS ORDERED: IPRATROPIUM/ALBUTEROL 3 ML AMPUL.NEB NEB PRN (16:48)
[2023-04-17] MEDS ORDERED: ACETAMINOPHEN (PP) 325MG TABLET (#50) PO PRN (18:18)
[2023-04-17] MEDS: OMEPRAZOLE 20 MG CAPSULE PO SCH (18:51)
[2023-04-17] MEDS: SENNOSIDES 1 TABLET PO SCH (22:23)
[2023-04-17] MEDS: DOCUSATE SODIUM 100 MG CAPSULE PO SCH (22:23)
[2023-04-17] MEDS: levETIRAcetam 500 MG TABLET PO SCH (22:23)
[2023-04-17] MEDS: TAMSULOSIN 0.4 MG CAPSULE PO SCH (22:23)
[2023-04-18] MEDS: 0.9 % SODIUM CHLORIDE 10 ML SYRINGE IV SCH (06:04)
[2023-04-18 06:54] LABS: Basophils # (Auto) 0.03 K/mcL (0.00-0.30); Basophils % (Auto) 0.4 % (0.0-2.0); Eosinophils # (Auto) 0.25 K/mcL (0.00-0.70); Eosinophils % (Auto) 3.1 % (0.0-7.0); Hematocrit 39.4 % (40.1-51.0); Hemoglobin 12.4 g/dL (13.7-17.5); Lymphocytes # (Auto) 0.75 K/mcL (1.50-4.80); Lymphocytes % (Auto) 9.4 % (15.5-49.0); Mean Cell Volume 86.6 fL (80.0-100.0); Mean Corpuscular HGB Conc 31.5 g/dL (31.0-36.0); Mean Platelet Volume 9.3 fL (8.8-12.5); Monocytes # (Auto) 0.58 K/mcL (0.10-0.90); Monocytes % (Auto) 7.2 % (1.0-12.0); Neutrophils % (Auto) 79.4 % (38.0-78.0); Platelet Count 251 K/mcL (140-440); RBC 4.55 M/mcL (4.63-6.08); Red Cell Distribution Width 15.4 % (11.5-14.5)
[2023-04-18 06:56] LABS: ALT/SGPT 14 U/L (<40); AST/SGOT 14 U/L (<40); Albumin 3.7 gm/dL (3.2-5.2); Albumin/Globulin Ratio 1.7 (1.0-2.3); Alkaline Phosphatase 78 U/L (39-117); Bilirubin,Total 0.6 mg/dL (0.1-1.0); Blood Urea Nitrogen 6 mg/dL (8-23); Calcium 8.7 mg/dL (8.6-10.4); Carbon Dioxide 27 mmol/L (22-30); Chloride 103 mmol/L (96-108); Globulin 2.2 gm/dL (2.2-3.7); Glomerular Filtration Rate 92; Glucose 107 mg/dL (70-105)
[2023-04-18] MEDS: FINASTERIDE 5 MG TABLET PO SCH (08:22)
[2023-04-18] MEDS: RIVAROXABAN 20 MG TABLET PO SCH (08:22)
[2023-04-18] MEDS: Fluticasone-Umeclidin-Vilanter [Trelegy Ellipta] INH SCH (08:23)
[2023-04-18] MEDS: ACETAMINOPHEN 325 MG TABLET PO PRN (11:33)
[2023-04-19 06:09] LABS: Basophils # (Auto) 0.03 K/mcL (0.00-0.30); Basophils % (Auto) 0.4 % (0.0-2.0); Eosinophils # (Auto) 0.18 K/mcL (0.00-0.70); Eosinophils % (Auto) 2.2 % (0.0-7.0); Hematocrit 38.2 % (40.1-51.0); Lymphocytes # (Auto) 1.13 K/mcL (1.50-4.80); Lymphocytes % (Auto) 13.7 % (15.5-49.0); Mean Cell Volume 86.8 fL (80.0-100.0); Mean Corpuscular HGB Conc 31.4 g/dL (31.0-36.0); Mean Platelet Volume 9.1 fL (8.8-12.5); Monocytes # (Auto) 0.66 K/mcL (0.10-0.90); Neutrophils % (Auto) 74.7 % (38.0-78.0); Platelet Count 256 K/mcL (140-440); Red Cell Distribution Width 15.4 % (11.5-14.5); WBC 8.3 K/mcL (4.5-11.0)
[2023-04-19 06:17] LABS: ALT/SGPT 11 U/L (<40); AST/SGOT 13 U/L (<40); Albumin 3.7 gm/dL (3.2-5.2); Albumin/Globulin Ratio 1.5 (1.0-2.3); Alkaline Phosphatase 82 U/L (39-117); Bilirubin,Total 0.6 mg/dL (0.1-1.0); Blood Urea Nitrogen 7 mg/dL (8-23); Calcium 8.8 mg/dL (8.6-10.4); Carbon Dioxide 27 mmol/L (22-30); Chloride 102 mmol/L (96-108); Globulin 2.4 gm/dL (2.2-3.7); Glomerular Filtration Rate 92; Glucose 114 mg/dL (70-105)
== END 2023-04-19 13:30 | disposition home or self-care (01) ==
LOC: ED 10:55 → MEDSUR 10:55
PROVIDERS: ADMIT Internal Medicine; ATTEND Internal Medicine

== ENCOUNTER 2024-03-01 17:01 | Inpatient (IN) ==
[2024-03-01] MEDS ORDERED: IOPAMIDOL 100 ML BOTTLE IV ONE (17:02)
[2024-03-01] MEDS: fentaNYL 100 MCG/2 ML VIAL IV ONE ×2 (17:41→17:46)
[2024-03-01 19:40] LABS: Basophils # (Auto) 0.04 K/mcL (0.00-0.30); Basophils % (Auto) 0.2 % (0.0-2.0); Eosinophils # (Auto) 0.02 K/mcL (0.00-0.70); Eosinophils % (Auto) 0.1 % (0.0-7.0); Hematocrit 36.5 % (40.1-51.0); Hemoglobin 11.4 g/dL (13.7-17.5); Lymphocytes # (Auto) 0.83 K/mcL (1.50-4.80); Mean Cell Volume 80.8 fL (80.0-100.0); Mean Corpuscular HGB Conc 31.2 g/dL (31.0-36.0); Monocytes # (Auto) 1.18 K/mcL (0.10-0.90); Monocytes % (Auto) 5.6 % (1.0-12.0); Neutrophils % (Auto) 89.7 % (38.0-78.0); Platelet Count 292 K/mcL (140-440); RBC 4.52 M/mcL (4.63-6.08); Red Cell Distribution Width 15.6 % (11.5-14.5)
[2024-03-01] MEDS: ONDANSETRON 4 MG/2 ML VIAL IV ONE (19:40)
[2024-03-01] MEDS: HYDROmorphone 1 MG/ML SYRINGE IV ONE (19:40)
[2024-03-01 20:09] LABS: Blood Urea Nitrogen 12 mg/dL (8-23); Calcium 8.7 mg/dL (8.6-10.4); Carbon Dioxide 26 mmol/L (22-30); Chloride 99 mmol/L (96-108); Glomerular Filtration Rate 87; Glucose 168 mg/dL (70-105); Potassium 4.5 mmol/L (3.3-5.1); Sodium 136 mmol/L (133-145)
[2024-03-01 20:18] LABS: INR 1.3 (0.9-1.1); Partial Thromboplastin Time 27.3 sec (20.0-37.0); Prothrombin Time 16.8 sec (11.9-14.5)
[2024-03-01] MEDS: 0.9 % SODIUM CHLORIDE 1,000 ML IV ONE (20:23)
[2024-03-01] MEDS ORDERED: ONDANSETRON 4 MG/2 ML VIAL IV PRN (23:17)
[2024-03-01] MEDS: morphine 4 MG/ML VIAL IV PRN (23:28)
[2024-03-01] MEDS: oxyCODONE IR 5 MG TABLET PO PRN (23:29)
[2024-03-01] MEDS: morphine 4 MG/ML VIAL ONE (23:29)
[2024-03-01] MEDS: oxyCODONE IR 5 MG TABLET PO ONE (23:29)
[2024-03-02] MEDS: METHOCARBAMOL 1,000 MG/10 ML VIAL IV PRN (00:21)
[2024-03-02] MEDS: 0.9 % SODIUM CHLORIDE 1,000 ML IV SCH (00:22)
[2024-03-02] MEDS: METHOCARBAMOL 1,000 MG/10 ML VIAL ONE (00:22)
[2024-03-02] MEDS: ACETAMINOPHEN 1,000 MG/100 ML BAG IV PRN (03:04)
[2024-03-02] MEDS: morphine 4 MG/ML VIAL ONE (03:06)
[2024-03-02] MEDS: ACETAMINOPHEN 1,000 MG/100 ML BAG IV ONE (03:06)
[2024-03-02] MEDS: oxyCODONE IR 5 MG TABLET PO ONE (03:33)
[2024-03-02 06:06] LABS: Basophils # (Auto) 0.03 K/mcL (0.00-0.30); Basophils % (Auto) 0.2 % (0.0-2.0); Eosinophils # (Auto) 0.01 K/mcL (0.00-0.70); Eosinophils % (Auto) 0.1 % (0.0-7.0); Hematocrit 32.2 % (40.1-51.0); Hemoglobin 10.2 g/dL (13.7-17.5); Lymphocytes # (Auto) 0.94 K/mcL (1.50-4.80); Lymphocytes % (Auto) 5.1 % (15.5-49.0); Mean Cell Volume 81.1 fL (80.0-100.0); Mean Corpuscular HGB Conc 31.7 g/dL (31.0-36.0); Mean Platelet Volume 9.2 fL (8.8-12.5); Monocytes # (Auto) 1.23 K/mcL (0.10-0.90); Monocytes % (Auto) 6.7 % (1.0-12.0); Neutrophils % (Auto) 87.4 % (38.0-78.0); Platelet Count 264 K/mcL (140-440); RBC 3.97 M/mcL (4.63-6.08); Red Cell Distribution Width 15.6 % (11.5-14.5); WBC 18.3 K/mcL (4.5-11.0)
[2024-03-02 06:16] LABS: Blood Urea Nitrogen 12 mg/dL (8-23); Calcium 8.3 mg/dL (8.6-10.4); Carbon Dioxide 26 mmol/L (22-30); Chloride 98 mmol/L (96-108); Glomerular Filtration Rate 87; Glucose 184 mg/dL (70-105); Potassium 4.8 mmol/L (3.3-5.1); Sodium 134 mmol/L (133-145)
[2024-03-02] MEDS: 0.9 % SODIUM CHLORIDE 10 ML SYRINGE IV SCH (06:53)
[2024-03-02] MEDS: DOCUSATE SODIUM 100 MG CAPSULE PO SCH (08:50)
[2024-03-02] MEDS: TAMSULOSIN 0.4 MG CAPSULE PO SCH (08:50)
[2024-03-02] MEDS: ATORVASTATIN 20 MG TABLET PO SCH (08:51)
[2024-03-02] MEDS: OMEPRAZOLE 20 MG CAPSULE PO SCH (08:51)
[2024-03-02] MEDS: FINASTERIDE 5 MG TABLET PO SCH (08:51)
[2024-03-02] MEDS: Fluticasone-Umeclidin-Vilanter [Trelegy Ellipta] INH SCH (08:51)
[2024-03-02 09:03] LABS: Hemoglobin 9.7 g/dL (13.7-17.5)
[2024-03-02] MEDS: FUROSEMIDE 20 MG/2 ML VIAL IV ONE (10:53)
[2024-03-02] MEDS ORDERED: IPRATROPIUM/ALBUTEROL 3 ML AMPUL.NEB NEB PRN (14:38)
[2024-03-02] MEDS ORDERED: ONDANSETRON 4 MG/2 ML VIAL IV PRN (14:38)
[2024-03-02] MEDS: LACTATED RINGERS 1,000 ML IV SCH (15:44)
[2024-03-02] MEDS: GABAPENTIN 100 MG CAPSULE PO SCH (20:41)
[2024-03-02] MEDS: SENNOSIDES 1 TABLET PO SCH (20:43)
[2024-03-02 21:14] LABS: Hematocrit 29.4 % (40.1-51.0); Hemoglobin 9.3 g/dL (13.7-17.5)
[2024-03-03 06:24] LABS: Basophils # (Auto) 0.04 K/mcL (0.00-0.30); Basophils % (Auto) 0.2 % (0.0-2.0); Eosinophils # (Auto) 0.01 K/mcL (0.00-0.70); Eosinophils % (Auto) 0.1 % (0.0-7.0); Hematocrit 29.8 % (40.1-51.0); Hemoglobin 9.5 g/dL (13.7-17.5); Lymphocytes # (Auto) 0.67 K/mcL (1.50-4.80); Lymphocytes % (Auto) 3.7 % (15.5-49.0); Mean Cell Volume 80.3 fL (80.0-100.0); Mean Corpuscular HGB Conc 31.9 g/dL (31.0-36.0); Mean Platelet Volume 9.3 fL (8.8-12.5); Monocytes # (Auto) 1.39 K/mcL (0.10-0.90); Monocytes % (Auto) 7.7 % (1.0-12.0); Neutrophils % (Auto) 87.4 % (38.0-78.0); Platelet Count 241 K/mcL (140-440); RBC 3.71 M/mcL (4.63-6.08); Red Cell Distribution Width 15.4 % (11.5-14.5)
[2024-03-03 07:06] LABS: Blood Urea Nitrogen 12 mg/dL (8-23); Calcium 8.4 mg/dL (8.6-10.4); Carbon Dioxide 28 mmol/L (22-30); Chloride 93 mmol/L (96-108); Glomerular Filtration Rate 92; Glucose 193 mg/dL (70-105); Potassium 3.9 mmol/L (3.3-5.1); Sodium 131 mmol/L (133-145)
[2024-03-03] MEDS ORDERED: KETAMINE 50 MG/ML Syringe IV ONE (07:25)
[2024-03-03] MEDS ORDERED: HYDROmorphone 0.5 MG/0.5 ML SYRINGE ONE ×2 (07:25→11:29)
[2024-03-03] MEDS ORDERED: fentaNYL 100 MCG/2 ML VIAL ONE (07:25)
[2024-03-03] MEDS ORDERED: SUGAMMADEX SODIUM 200 MG/2 ML VIAL IV ONE (07:25)
[2024-03-03] MEDS ORDERED: PROPOFOL 200 MG/20 ML VIAL IV ONE (07:26)
[2024-03-03] MEDS ORDERED: ROCURONIUM 10 MG/ML ML IV ONE ×2 (07:28→11:04)
[2024-03-03] MEDS ORDERED: DEXAMETHASONE 10 MG/ML VIAL ONE (07:31)
[2024-03-03] MEDS ORDERED: ONDANSETRON 4 MG/2 ML VIAL ONE ×2 (07:31→12:04)
[2024-03-03] MEDS ORDERED: LIDOCAINE 2% PF 5 ML VIAL ONE (07:31)
[2024-03-03] MEDS ORDERED: GLYCOPYRROLATE 0.2 MG/ML VIAL IV ONE (07:31)
[2024-03-03] MEDS ORDERED: ePHEDrine 50 MG/5 ML SYRINGE (ANEST) IV ONE (07:31)
[2024-03-03] MEDS ORDERED: TRANEXAMIC ACID 1,000 MG/10 ML VIAL ONE (07:31)
[2024-03-03] MEDS: ceFAZolin 3 GM in DEXTROSE 5% IN WATER 50 ML IV SCH (07:55)
[2024-03-03] MEDS: ALBUMIN HUMAN 25 GM/100 ML BAG IV ONE (09:00)
[2024-03-03] MEDS ORDERED: MAGNESIUM SULFATE 2 GM/50 ML BAG IV ONE (09:07)
[2024-03-03] MEDS ORDERED: FAMOTIDINE/PF 20 MG/2 ML VIAL IV ONE (09:23)
[2024-03-03] MEDS ORDERED: PHENYLephrine 1 MG/10 ML SYRINGE (ANEST) ONE (11:23)
[2024-03-03 11:30] LABS: Basophils # (Auto) 0.03 K/mcL (0.00-0.30); Basophils % (Auto) 0.2 % (0.0-2.0); Eosinophils # (Auto) 0.01 K/mcL (0.00-0.70); Eosinophils % (Auto) 0.1 % (0.0-7.0); Hematocrit 25.2 % (40.1-51.0); Hemoglobin 8.2 g/dL (13.7-17.5); Lymphocytes # (Auto) 0.61 K/mcL (1.50-4.80); Lymphocytes % (Auto) 3.6 % (15.5-49.0); Mean Cell Volume 79.7 fL (80.0-100.0); Mean Corpuscular HGB Conc 32.5 g/dL (31.0-36.0); Mean Platelet Volume 9.4 fL (8.8-12.5); Monocytes # (Auto) 0.61 K/mcL (0.10-0.90); Monocytes % (Auto) 3.6 % (1.0-12.0); Neutrophils % (Auto) 91.6 % (38.0-78.0); Platelet Count 230 K/mcL (140-440); RBC 3.16 M/mcL (4.63-6.08); Red Cell Distribution Width 15.4 % (11.5-14.5); WBC 16.9 K/mcL (4.5-11.0)
[2024-03-03] MEDS ORDERED: BENZOCAINE/MENTHOL 1 LOZENGE PO PRN (12:03)
[2024-03-03] MEDS ORDERED: FLEETS ADULT 1 DOSE ENEMA PR PRN (12:03)
[2024-03-03] MEDS ORDERED: POLYETHYLENE GLYCOL 3350 17 GM PACKET PO PRN (12:03)
[2024-03-03] MEDS ORDERED: ONDANSETRON 4 MG ODT TABLET SL PRN (12:03)
[2024-03-03] MEDS ORDERED: fentaNYL 100 MCG/2 ML VIAL IV PRN (12:14)
[2024-03-03] MEDS ORDERED: HYDROmorphone 0.5 MG/0.5 ML SYRINGE IV PRN (12:14)
[2024-03-03] MEDS ORDERED: IPRATROPIUM/ALBUTEROL 3 ML AMPUL.NEB NEB PRN (12:14)
[2024-03-03] MEDS ORDERED: ceFAZolin 2 GM in DEXTROSE 5% IN WATER 50 ML IV SCH (12:15)
[2024-03-03] MEDS ORDERED: DEXMEDETOMIDINE HCL 200 MCG/2 ML VIAL ONE (12:29)
[2024-03-03] MEDS ORDERED: 0.9 % SODIUM CHLORIDE 100 ML IV ONE (12:29)
[2024-03-03] MEDS: ACETAMINOPHEN 1,000 MG/100 ML BAG IV ONE (13:18)
[2024-03-03] MEDS: METHOCARBAMOL 1,000 MG/10 ML VIAL IV ONE (13:46)
[2024-03-03] MEDS: 0.9 % SODIUM CHLORIDE 1,000 ML IV SCH (14:47)
[2024-03-03] MEDS: LACTATED RINGERS 1,000 ML IV SCH (15:00)
[2024-03-03] MEDS: POTASSIUM CHLORIDE 20 MEQ PACKET PO ONE ×2 (15:08→18:02)
[2024-03-03] MEDS ORDERED: ceFAZolin 1 GM VIAL IV SCH (16:00)
[2024-03-03] MEDS: morphine 4 MG/ML VIAL IV PRN (16:44)
[2024-03-03] MEDS: HYDROcodone/APAP 10/325MG TABLET PO PRN (18:06)
[2024-03-03] MEDS ORDERED: DOCUSATE SODIUM 100 MG CAPSULE PO SCH (21:00)
[2024-03-03] MEDS ORDERED: SENNOSIDES 1 TABLET PO SCH (21:00)
[2024-03-04 06:41] LABS: Basophils # (Auto) 0.02 K/mcL (0.00-0.30); Basophils % (Auto) 0.1 % (0.0-2.0); Eosinophils # (Auto) 0 K/mcL (0.00-0.70); Eosinophils % (Auto) 0 % (0.0-7.0); Hematocrit 22.9 % (40.1-51.0); Hemoglobin 7.3 g/dL (13.7-17.5); Lymphocytes # (Auto) 0.58 K/mcL (1.50-4.80); Lymphocytes % (Auto) 3.5 % (15.5-49.0); Mean Cell Volume 81.8 fL (80.0-100.0); Mean Corpuscular HGB Conc 31.9 g/dL (31.0-36.0); Mean Platelet Volume 9.2 fL (8.8-12.5); Monocytes # (Auto) 1.73 K/mcL (0.10-0.90); Monocytes % (Auto) 10.5 % (1.0-12.0); Neutrophils % (Auto) 85.4 % (38.0-78.0); Platelet Count 219 K/mcL (140-440); Red Cell Distribution Width 15.2 % (11.5-14.5); WBC 16.5 K/mcL (4.5-11.0)
[2024-03-04 07:35] LABS: Blood Urea Nitrogen 9 mg/dL (8-23); Calcium 8.1 mg/dL (8.6-10.4); Carbon Dioxide 28 mmol/L (22-30); Chloride 97 mmol/L (96-108); Glomerular Filtration Rate 97; Glucose 162 mg/dL (70-105); Potassium 4.3 mmol/L (3.3-5.1); Sodium 134 mmol/L (133-145)
[2024-03-04] MEDS: FOLIC ACID 1 MG TABLET PO SCH (09:19)
[2024-03-04 10:03] LABS: Iron 12 ug/dL (61-157); TIBC Calculation 270 ug/dl (228-428); Transferrin % Saturation 4 % (20-50)
[2024-03-04] MEDS: CYANOCOBALAMIN 1,000 MCG/ML VIAL SQ SCH (10:08)
[2024-03-04 10:13] LABS: Ferritin 40.5 ng/mL (30.0-400.0)
[2024-03-04] MEDS: POLYETHYLENE GLYCOL 3350 17 GM PACKET PO PRN (11:56)
[2024-03-04] MEDS: IRON POLYSACCHARIDE COMPLEX 150 MG CAPSULE PO SCH (11:56)
[2024-03-04] MEDS: EPOETIN ALFA-EPBX 4,000 UNIT/ML VIAL IV ONE (15:33)
[2024-03-05 07:24] LABS: POC Calcium, Ionized 1.12 (1.16-1.32); POC Creatinine 0.9 (0.6-1.2); POC Potassium 4.2 (3.3-5.1)
[2024-03-05 07:36] LABS: Hematocrit 22.8 % (40.1-51.0); Hemoglobin 6.9 g/dL (13.7-17.5)
[2024-03-05] MEDS: MULTIVIT,THER IRON,CA,FA & MIN 1 TABLET PO SCH (09:01)
[2024-03-05] MEDS: MAGNESIUM HYDROXIDE 30 ML ORAL.SUSP PO PRN (09:01)
[2024-03-05] MEDS: BISACODYL 10 MG SUPP.RECT PR PRN (13:46)
[2024-03-05] MEDS: POLYETHYLENE GLYCOL 3350 17 GM PACKET PO SCH ×2 (14:42→20:32)
[2024-03-05] MEDS: EPOETIN ALFA-EPBX 4,000 UNIT/ML VIAL IV SCH (15:02)
[2024-03-07 08:12] LABS: POC Calcium, Ionized 1.1 (1.16-1.32); POC Creatinine 0.7 (0.6-1.2); POC Potassium 4.2 (3.3-5.1)
[2024-03-07] MEDS: SODIUM CHLORIDE 1 GM TABLET PO SCH (10:10)
[2024-03-07] MEDS: FUROSEMIDE 100 MG/10 ML VIAL IV ONE (10:10)
[2024-03-07] MEDS: HEPARIN 5,000 UNIT/ML VIAL SQ SCH (11:05)
[2024-03-07] MEDS ORDERED: LORazepam 2 MG/ML VIAL IV PRN (22:34)
[2024-03-07] MEDS: OLANZapine 2.5 MG TABLET PO ONE (22:43)
[2024-03-07] MEDS: OLANZapine 5 MG TABLET PO ONE (22:43)
[2024-03-08 08:05] LABS: POC Calcium, Ionized 1.11 (1.16-1.32); POC Creatinine 0.9 (0.6-1.2); POC Potassium 3.8 (3.3-5.1)
[2024-03-08] MEDS: FUROSEMIDE 100 MG/10 ML VIAL IV ONE (10:30)
[2024-03-09 07:17] LABS: POC Calcium, Ionized 1.01 (1.16-1.32); POC Creatinine 0.9 (0.6-1.2); POC Potassium 3.7 (3.3-5.1)
[2024-03-09] MEDS: METHOCARBAMOL 750 MG TABLET PO PRN (18:26)
[2024-03-10] MEDS: OLANZapine 5 MG TABLET PO PRN (00:09)
[2024-03-10] MEDS: LACTULOSE 20 GM/30 ML ORAL.SOL PO SCH (10:18)
[2024-03-10] MEDS: FUROSEMIDE 100 MG/10 ML VIAL IV SCH (10:18)
[2024-03-11 07:51] LABS: POC Calcium, Ionized 1.1 (1.16-1.32); POC Creatinine 0.9 (0.6-1.2); POC Potassium 3.6 (3.3-5.1)
== END 2024-03-11 11:10 | DRG 481 ==
LOC: ED 17:01 → MEDSUR 23:13 → ICU 03-04 12:45 → MEDSUR 03-08 18:17
PROVIDERS: ADMIT Student in an Organized Health Care Education/Training Program; ATTEND Internal Medicine